=== PATIENT | male | born 1970 | race Two or more races ===

== ENCOUNTER 2020-06-16 08:47 | Outpatient (REF) | payer OTHER, SELFPAY ==
[2020-06-16 09:55] LABS: Microalbum/Creatinine Ratio Ur 13.4 ug/mg cr
[2020-06-16 10:01] LABS: Alanine Aminotransferase 15 U/L (0-40); Albumin Level 4.7 g/dL (3.5-5.0); Alkaline Phosphatase 64 U/L (39-117); Anion Gap 13 (12-20); Aspartate Amino Transferase 18 U/L (5-37); Bilirubin Total 0.6 mg/dL (0.0-1.0); Blood Urea Nitrogen 20 mg/dL (9-16); Calcium 9.6 mg/dL (8.4-10.2); Carbon Dioxide 31 mmol/L (22-29); Chloride 101 mmol/L (96-108); Cholesterol 151 mg/dL; Estimated Glomerular Filt Rate > 60; Glucose Fasting 115 mg/dL (60-99); HDL Cholesterol 50 mg/dL; LDL Cholesterol Calculated 85 mg/dl; Potassium 3.9 mmol/L (3.3-5.1); Sodium 141 mmol/L (135-145); Total Protein 7.8 g/dL (6.5-8.0); Triglycerides 82 mg/dL
[2020-06-16 10:14] LABS: Estimated Average Glucose 117 mg/dL; Hemoglobin A1c % 5.7 %
[2020-06-16 10:24] LABS: Prostate Specific Antigen 0.37 ng/mL (<0.05-4.0)
== END 2020-06-16 08:48 | disposition home or self-care (01) ==
LOC: HO.LAB 08:47
PROVIDERS: PCP Internal Medicine; Visit Provider Internal Medicine
DX: E11.40 Type 2 diabetes mellitus with diabetic neuropathy, unspecified (principal); E78.5 Hyperlipidemia, unspecified; N40.0 Benign prostatic hyperplasia without lower urinary tract symptoms; Z12.5 Encounter for screening for malignant neoplasm of prostate
CPT/HCPCS: 36415; 80053; 80061; 82043; 83036; 84153

== ENCOUNTER → 2020-08-12 08:45 | Outpatient (BNVA) | payer OTHER, SELFPAY | PROVIDERS: Visit Provider Physician Assistant | DX: K21.9 Gastro-esophageal reflux disease without esophagitis (principal); Z12.11 Encounter for screening for malignant neoplasm of colon; K64.9 Unspecified hemorrhoids | CPT/HCPCS: Q3014 ==

== ENCOUNTER 2020-08-21 07:03 | Day surgery (SDC) | payer OTHER, SELFPAY ==
--- NOTE | 2020-08-20 09:31 | HO.ANESPROP2 ---
Documented by User: Kalyani Randolph 08/20/20 09:33 HPI - Anesthesia Eval Consult details Narrative: 49yo M for Colonoscopy PMFSH Active Problems Active Problems: All Active Problems (Updated 08/12/20 @ 09:22 by Cha Gibbons PA-C) Hemorrhoids (Acute) Encounter for screening colonoscopy (Acute) BPH (benign prostatic hyperplasia) (Acute) Depression with anxiety (Acute) Chronic leg pain (Acute) GERD (gastroesophageal reflux disease) (Acute) Dyslipidemia (Acute) Essential hypertension (Acute) Diabetes mellitus (Acute) Diarrhea (Acute) Past Medical History Medical History BPH (benign prostatic hyperplasia) Chronic leg pain Depression with anxiety Diabetes mellitus Dyslipidemia Essential hypertension GERD (gastroesophageal reflux disease) Hemorrhoids Family History Family History Father CVD (cardiovascular disease) Hypertension Mother CVD (cardiovascular disease) Hypertension Diabetes Sister Breast cancer Brother Acute appendicitis Diabetes Hypertension Surgical History Surgical History History of inguinal hernia repair History of lumbar fusion History of removal of cyst Social History Social History Household Members: Friend(s) Alcohol intake: never Smoking Status: Never smoker Use of substances other than those prescribed or required for medical reasons: No Advance Directives: No Advance Directives Information Provided: Yes Current occupational status: disabled Meds Allergies Allergy/AdvReac Type Severity Reaction Status Date / Time acetaminophen [Vicodin] Allergy Intermediate rash Verified 08/21/20 07:29 dicyclomine [Bentyl] Allergy Intermediate pruritus Verified 08/21/20 07:29 finasteride Allergy Intermediate rash Verified 08/21/20 07:29 hydrocodone [Vicodin] Allergy Intermediate rash Verified 08/21/20 07:29 lisinopril Allergy Intermediate myalgias Verified 08/21/20 07:29 morphine Allergy Intermediate unconscious Verified 08/21/20 07:29 losartan [From COZAAR] Allergy Mild RASH Verified 08/12/20 08:46 Home Medications Medication Instructions Recorded Confirmed Last Taken Type azelastine 137 mcg (0.1 %) nasal 1 spray INTRANASAL BID 03/11/20 08/12/20 Unknown History spray aerosol blood sugar diagnostic #10 ea 03/11/20 08/12/20 Unknown History bupropion HCl 300 mg 24 hr tablet, 300 mg PO DAILY 03/11/20 08/12/20 Unknown History extended release cetirizine 10 mg tablet 10 mg PO QAM 03/11/20 08/12/20 Unknown History chlorhexidine gluconate 0.12 % PO 03/11/20 08/12/20 Unknown History mouthwash clonazepam 0.5 mg tablet mg PO 03/11/20 08/12/20 Unknown History escitalopram oxalate 5 mg tablet 5 mg PO DAILY 03/11/20 08/12/20 Unknown History fluticasone propionate 50 INTRANASAL 03/11/20 08/12/20 Unknown History mcg/actuation nasal spray,suspension ibuprofen 600 mg tablet 600 mg PO Q6H PRN 03/11/20 08/12/20 Unknown History lancets #100 ea 03/11/20 08/12/20 Unknown History melatonin 5 mg tablet 500f10 mg PO BEDTIME 03/11/20 08/12/20 Unknown History metformin 1,000 mg tablet 1,000 mg PO BID 03/11/20 08/12/20 Unknown History loperamide 1 cap PO Q6H PRN 08/21/20 08/21/20 08/21/20 06:45 History Exam Exam Date and Time: August 20, 2020 0931 Pertinent Lab Results Pertinent Lab Results: Laboratory Tests 06/16/20 08:58 Sodium 141 Potassium 3.9 Chloride 101 Carbon Dioxide 31 H BUN 20 H Creatinine 0.86 Assessment and Plan Assessment Anesthesia Assessment: Chart Reviewed Documented by User: Jessika Madera 08/21/20 08:49 PMFSH Past Medical History Medical History BPH (benign prostatic hyperplasia) Chronic leg pain Depression with anxiety Diabetes mellitus Dyslipidemia Essential hypertension GERD (gastroesophageal reflux disease) Hemorrhoids Family History Family History Father CVD (cardiovascular disease) Hypertension Mother CVD (cardiovascular disease) Hypertension Diabetes Sister Breast cancer Brother Acute appendicitis Diabetes Hypertension Surgical History Surgical History History of inguinal hernia repair History of lumbar fusion History of removal of cyst Social History Social History Household Members: Friend(s) Alcohol intake: never Smoking Status: Never smoker Use of substances other than those prescribed or required for medical reasons: No Advance Directives: No Advance Directives Information Provided: Yes Current occupational status: disabled Meds Allergies Allergy/AdvReac Type Severity Reaction Status Date / Time acetaminophen [Vicodin] Allergy Intermediate rash Verified 08/21/20 07:29 dicyclomine [Bentyl] Allergy Intermediate pruritus Verified 08/21/20 07:29 finasteride Allergy Intermediate rash Verified 08/21/20 07:29 hydrocodone [Vicodin] Allergy Intermediate rash Verified 08/21/20 07:29 lisinopril Allergy Intermediate myalgias Verified 08/21/20 07:29 morphine Allergy Intermediate unconscious Verified 08/21/20 07:29 losartan [From COZAAR] Allergy Mild RASH Verified 08/12/20 08:46 Home Medications Medication Instructions Recorded Confirmed Last Taken Type azelastine 137 mcg (0.1 %) nasal 1 spray INTRANASAL BID 03/11/20 08/12/20 Unknown History spray aerosol blood sugar diagnostic #10 ea 03/11/20 08/12/20 Unknown History bupropion HCl 300 mg 24 hr tablet, 300 mg PO DAILY 03/11/20 08/12/20 Unknown History extended release cetirizine 10 mg tablet 10 mg PO QAM 03/11/20 08/12/20 Unknown History chlorhexidine gluconate 0.12 % PO 03/11/20 08/12/20 Unknown History mouthwash clonazepam 0.5 mg tablet mg PO 03/11/20 08/12/20 Unknown History escitalopram oxalate 5 mg tablet 5 mg PO DAILY 03/11/20 08/12/20 Unknown History fluticasone propionate 50 INTRANASAL 03/11/20 08/12/20 Unknown History mcg/actuation nasal spray,suspension ibuprofen 600 mg tablet 600 mg PO Q6H PRN 03/11/20 08/12/20 Unknown History lancets #100 ea 03/11/20 08/12/20 Unknown History melatonin 5 mg tablet 500f10 mg PO BEDTIME 03/11/20 08/12/20 Unknown History metformin 1,000 mg tablet 1,000 mg PO BID 03/11/20 08/12/20 Unknown History loperamide 1 cap PO Q6H PRN 08/21/20 08/21/20 08/21/20 06:45 History Exam Airway Mallampati Class: II TM Dist: >3cm Heart: RRR Lungs: CTA Assessment and Plan Assessment Anesthesia Assessment: Anesthesia Plan Discussed and Chart Reviewed Final Anesthetic Review NPO: Yes ASA Class: II Final Preanesthetic Review: Meds/Allgs Chart Reviewed, Consent Obtained/Reviewed and Anes Risks/Benef Reviewed Patient Risk: Low Procedure Risk: Low Anesthetic Plan Anesthetic Plan: MAC: Disposition: Standard PACU
[2020-08-21 07:22] LABS: Glucose, Whole Blood 112 mg/dL (60-115)
[2020-08-21 07:29] VITALS: BP 123/80; PULSE 66; RESP 18; TEMP 36.7; O2SAT 97; BMI 28.2
[2020-08-21] MEDS: Lactated Ringers 1,000 ML 100 ML IVCONT (07:47)
--- NOTE | 2020-08-21 08:11 | P.OP_ITS ---
Operative Note Operative Note Date of Service: 08/21/20 Narrative: Pre-op diagnosis: COLON CANCER SCREENING Post-op diagnosis: other (COLON POLYPS, DIVERTICULOSIS, HEMORRHOIDS) Procedure: COLONOSCOPY TILL CECUM WITH BIOPSIES AND SNARE POLYPECTOMY Consent: Indications for the procedure and potential complications of bleeding, perforation, reaction to medications and missed diagnosis were discussed with the patient and informed consent was obtained. Instrument: Olympus PCF H 190 L variable stiffness pediatric colonoscope Monitoring: Vital signs and clinical assessment, intermittent blood pressure monitoring, continuous EKG monitoring, Pulse oximetry and Carbon Dioxide monitoring were done throughout the procedure. Colon withdrawl time was 35 minutes. Procedure: The patient was placed in the left lateral decubitis position and pre-procedure medications were administered. After a digital rectal examination of the ano-rectum, the video colonoscope was inserted into the rectum and advanced through the colon to the cecum. The colonoscope was slowly withdrawn in a retrograde panoramic fashion and the colon mucosa was carefully examined including a retroflexed view of the rectum. Findings and interventions are described below. Procedure Difficulty: Colon was long and tortuous and there was some loop formation. LLQ pressure applied to intubate the ascending colon Findings: Terminal Ileum: Not evaluated Cecum: Normal Ascending Colon: Normal Transverse Colon: A 10 to 12 mm sessile polyp removed with a cold snare. A 4-5 mm sessile polyp removed with a cold biopsy Descending Colon: Normal Sigmoid Colon: Normal Rectum: A 4-5 mm diminutive appearing polyp removed with a cold biopsy. Ano-rectum: Moderate internal hemorrhoids Colon preparation: Good after copious irrigation Impression and Post Procedure Diagnosis: Colonoscopy Findings: Three small to medium sized polyps removed Moderate hemorrhoids on retroflexed exam. Plan: Await pathology results Patient has an appointment on 09/03/20 in the [facility] with LUCI Delgado. Repeat Colonoscopy interval based on path results - in 3-5 years if polyps are adenomatous and 10 years if polyps are hyperplastic. Above findings were reviewed with the patient and colon polyps and hemorrhoids handouts were given in the discharge area Surgeon: Foster Corea MD Anesthesia: MAC (Dr Ty & Dr Juarez) Digital Business Analyst: Jesus Ojeda Estimated blood loss (mL): 0 Pathology: other (A-TRANSVERSE COLON POLYPS B- RECTAL POLYP) Condition: stable Disposition: PACU
--- NOTE | 2020-08-21 08:11 | MHC.SHP ---
Pre-Procedural Eval Section A The patient is an INPATIENT: No Changes since office visit: Yes Patient answered all questions; No Cold of Flu in the past 2 weeks, No New Medical Problems and No Changes in Medication The History & Physical has been completed within 30 days and I have reviewed it.: Yes Section B Chief Complaint: Screening Allergies: Allergies Allergy/AdvReac Type Severity Reaction Status Date / Time acetaminophen [Vicodin] Allergy Intermediate rash Verified 08/21/20 07:29 dicyclomine [Bentyl] Allergy Intermediate pruritus Verified 08/21/20 07:29 finasteride Allergy Intermediate rash Verified 08/21/20 07:29 hydrocodone [Vicodin] Allergy Intermediate rash Verified 08/21/20 07:29 lisinopril Allergy Intermediate myalgias Verified 08/21/20 07:29 morphine Allergy Intermediate unconscious Verified 08/21/20 07:29 losartan [From COZAAR] Allergy Mild RASH Verified 08/12/20 08:46 Exam Surgical H&P Exam: Normal: Heart, Normal: Lungs, Normal: Extremities and Normal: Abdomen Plan Diagnosis/Plan: Unchanged I have reviewed the history and physical and performed a pertinent physical examination on my patient. No changes have occurred unless specified.
[2020-08-21 09:15] VITALS: BP 108/71; PULSE 65; RESP 18; TEMP 36.3; O2SAT 99
[2020-08-21 09:30] VITALS: BP 111/73; PULSE 66; RESP 18; O2SAT 98
== END 2020-08-21 10:32 | disposition home or self-care (01) ==
PROVIDERS: PCP Internal Medicine; Visit Provider Internal Medicine Gastroenterology
PROC: 0DJD8ZZ Inspection of Lower Intestinal Tract, Via Natural or Artificial Opening Endoscopic (ICD-10-PCS; CPT 45378; principal; 2020-08-21 08:20)
DX: Z12.11 Encounter for screening for malignant neoplasm of colon (principal); D12.3 Benign neoplasm of transverse colon; K62.1 Rectal polyp; K57.30 Diverticulosis of large intestine without perforation or abscess without bleeding; K64.8 Other hemorrhoids; K21.9 Gastro-esophageal reflux disease without esophagitis; N40.0 Benign prostatic hyperplasia without lower urinary tract symptoms; I10 Essential (primary) hypertension; E11.9 Type 2 diabetes mellitus without complications; Z79.84 Long term (current) use of oral hypoglycemic drugs; Z79.51 Long term (current) use of inhaled steroids; Z79.899 Other long term (current) drug therapy
CPT/HCPCS: 45385; 45380; 82947; 88305

== ENCOUNTER → 2020-09-03 08:41 | Outpatient (BNVA) | payer OTHER, SELFPAY | PROVIDERS: PCP Internal Medicine; Visit Provider Physician Assistant | DX: K64.9 Unspecified hemorrhoids (principal); D13.6 Benign neoplasm of pancreas; K57.30 Diverticulosis of large intestine without perforation or abscess without bleeding | CPT/HCPCS: Q3014 ==

== ENCOUNTER 2020-09-29 10:17 | Emergency (ER) | payer OTHER, SELFPAY ==
--- NOTE | ~2020-09-29 | XR_ITS ---
EXAMINATION: XR CHEST CLINICAL INFORMATION: Chest pain COMPARISON: Previous chest x-ray most recent September 2018 TECHNIQUE: 2 views of the chest were obtained. FINDINGS: The cardiac and mediastinal contours are stable. The lungs are clear. There is no pleural effusion or pneumothorax. There are surgical clips in the left axilla. There is curvature of the midthoracic spine to the right and mild degenerative changes. XR/XR chest 2V IMPRESSION: No evidence for acute disease in the chest.
[2020-09-29 10:31] VITALS: BP 139/89; PULSE 97; RESP 18; TEMP 36.7; O2SAT 98; BMI 27.4
--- NOTE | 2020-09-29 10:48 | ECG_ITS ---
Test Reason : CP Blood Pressure : / mmHG Vent. Rate : 082 BPM Atrial Rate : 082 BPM P-R Int : 150 ms QRS Dur : 096 ms QT Int : 352 ms P-R-T Axes : 073 078 025 degrees QTc Int : 411 ms Normal sinus rhythm Incomplete right bundle branch block Borderline ECG When compared with ECG of 17-OCT-2018 15:10, No significant change was found Referred By: Generic ED Physician Electronically Signed By:MAYRA HER MD
[2020-09-29 11:41] LABS: MANUAL DIFF FLAG NO
[2020-09-29 11:45] LABS: Basophils Absolute Auto 0.1 X10*3/uL (0.0-0.2); Eosinophils Absolute Auto 0.1 X10*3/uL (0.0-0.4); Eosinophils Percent Auto 1.8 % (0-4); Hematocrit 45.4 % (42-52); Hemoglobin 15.8 g/dl (14.0-18.0); Imm Gran Abs Auto 0.05 X10*3/uL (0.00-0.03); Imm Gran Pct Auto 0.7 % (0.0-0.4); Lymphocytes Absolute Auto 1.8 X10*3/uL (1.2-4.9); Lymphocytes Percent Auto 24.4 % (20-40); Mean Corpuscular HGB Conc 34.8 g/dl (31.0-36.0); Mean Corpuscular Hemoglobin 29.5 pg (27.0-33.0); Mean Corpuscular Volume 84.7 fL (80-98); Mean Platelet Volume 10.4 fL (9.4-12.4); Monocytes Absolute Auto 0.7 X10*3/uL (0.1-1.2); Monocytes Percent Auto 9.9 % (2-11); Neutrophils Absolute Auto 4.6 X10*3/uL (2.0-8.3); Neutrophils Percent Auto 62.2 % (45-73); Platelet Count 194 X10*3/uL (160-400); Red Blood Count 5.36 X10*6/uL (4.60-5.80); Red Cell Distribution Width 13.4 % (11.0-16.0); White Blood Count 7.3 X10*3/uL (4.8-10.8)
[2020-09-29 12:05] LABS: Anion Gap 14 (12-20); Blood Urea Nitrogen 22 mg/dL (9-16); Calcium 9.9 mg/dL (8.4-10.2); Carbon Dioxide 25 mmol/L (22-29); Chloride 104 mmol/L (96-108); Creatinine Clr Calc Pharmacy 102.9; Estimated Glomerular Filt Rate > 60; Glucose Random 99 mg/dL (60-115); Potassium 3.6 mmol/L (3.3-5.1); Sodium 139 mmol/L (135-145)
[2020-09-29 12:56] LABS: Troponin-I High Sensitivity < 3.5 ng/L (<3.5-35.0)
--- NOTE | 2020-09-29 13:15 | ED.CHESTPAIN ---
HPI - Chest Pain General Chief Complaint: Chest Pain Stated Complaint: Chest pain, dizziness Time Seen by Provider: 09/29/20 13:13 Source: patient Mode of arrival: ambulatory Limitations: no limitations History of Present Illness HPI narrative: 49-year-old male with a past medical history of BPH, depression, anxiety, GERD, high cholesterol, hypertension and diabetes here with complaints of intermittent chest pain since yesterday. Patient tells me that he has episodes of palpitations which are associated with ?chest squeezing on the left side which lasts several seconds and then self-resolved. These occur both with movement and at rest. Unchanged with position changes in the bed. He has had more episodes than he can count since yesterday morning. He was seen at Urgent Care and while he was there he had 5 episodes so he was sent into the ER for further evaluation. He denies any associated shortness of breath, cough, fevers, chills, leg swelling or pain. He tells me [place] and was standing he felt very lightheaded like he might pass out and this was associated with some chest discomfort and palpitations but self resolved after approximately 10 seconds. There was no fall, head injury or loss of consciousness. No recent travel. No sick contacts. No family history of sudden cardiac disease. No history of blood clots or family history. Related Data Home Medications Medication Instructions Recorded Confirmed bupropion HCl 300 mg 24 hr tablet, 300 mg PO DAILY 03/11/20 09/09/20 extended release cetirizine 10 mg tablet 10 mg PO QAM 03/11/20 09/09/20 clonazepam 0.5 mg tablet mg PO 03/11/20 09/09/20 escitalopram oxalate 5 mg tablet 5 mg PO DAILY 03/11/20 09/09/20 ibuprofen 600 mg tablet 600 mg PO Q6H PRN 03/11/20 09/09/20 lancets #100 ea 03/11/20 09/09/20 melatonin 5 mg tablet 500f10 mg PO BEDTIME 03/11/20 09/09/20 metformin 1,000 mg tablet 1,000 mg PO BID 03/11/20 09/09/20 loperamide 1 cap PO Q6H PRN 08/21/20 09/09/20 azelastine 137 mcg (0.1 %) nasal 1 spray INTRANASAL BID 08/28/20 09/09/20 spray aerosol Previous Rx's Medication Instructions Recorded losartan 25 mg tablet 25 mg PO DAILY #90 tab 03/08/20 linaclotide 145 mcg capsule 145 mcg PO DAILY #90 cap 03/12/20 linagliptin 5 mg tablet 5 mg PO DAILY #90 tab 03/23/20 aluminum-mag hydroxide-simethicone 10 ml PO QID PRN 30 Days #1200 ml 06/11/20 200 mg-200 mg-20 mg/5 mL oral susp hydrochlorothiazide 25 mg tablet 25 mg PO DAILY 90 Days #90 tab 06/11/20 pravastatin 10 mg tablet 10 mg PO DAILY 90 Days #90 tab 06/11/20 terazosin 10 mg capsule 10 mg PO DAILY 90 Days #90 cap 06/11/20 docusate sodium 100 mg capsule 200 mg PO BEDTIME #60 cap 08/12/20 hydrocortisone 2.5 % topical cream 1 appl TN BID PRN #30 g 08/12/20 with perineal applicator blood sugar diagnostic #10 ea 08/26/20 amoxicillin 875 mg-potassium 1 tab PO BID #20 tab 08/28/20 clavulanate 125 mg tablet fluticasone propionate 50 1 spray INTRANASAL DAILY #16 g 09/04/20 mcg/actuation nasal spray,suspension Allergies Allergy/AdvReac Type Severity Reaction Status Date / Time acetaminophen [Vicodin] Allergy Intermediate rash Verified 09/29/20 10:34 dicyclomine [Bentyl] Allergy Intermediate pruritus Verified 09/29/20 10:34 finasteride Allergy Intermediate rash Verified 09/29/20 10:34 hydrocodone [Vicodin] Allergy Intermediate rash Verified 09/29/20 10:34 lisinopril Allergy Intermediate myalgias Verified 09/29/20 10:34 morphine Allergy Intermediate unconscious Verified 09/29/20 10:34 losartan [From [facility]] Allergy Mild RASH Verified 09/29/20 10:34 Review of Systems Review of Systems: Yes all other systems are reviewed and are negative Constitutional: Constitutional: Reports no additional constitutional complaints, Denies body ache(s), Denies chills, Denies fever(s), Denies headache(s) and Denies weakness Eyes: Eyes: Reports no additional eye complaints and Denies change in vision ENT: Reports system reviewed and no additional complaints, except as documented, Denies dizziness, Denies headache(s), Denies nasal congestion, Denies nasal discharge and Denies neck pain Cardiovascular: Cardiovascular: Reports chest pain, Reports lightheadedness, Reports palpitations and Denies dyspnea Respiratory: Respiratory: Reports no additional respiratory complaints, Denies cough and Denies dyspnea Gastrointestinal: Gastrointestinal: Reports no additional gastrointestinal complaints, Denies abdominal pain, Denies diarrhea, Denies nausea and Denies vomiting Genitourinary: Genitourinary: Denies urinary incontinence Musculoskeletal: Musculoskeletal: Reports no additional musculoskeletal complaints, Denies back pain, Denies arthralgias, Denies joint swelling, Denies neck pain, Denies numbness and Denies tingling Integumentary/Breasts: Skin/Breast: Reports system reviewed and no additional complaints, except as docu and Denies rash Neurologic: Reports system reviewed and no additional complaints, except as documented, Denies Abnormal speech present, Denies dizziness, Denies headache(s), Denies numbness, Denies tingling and Denies weakness Endocrine: Endocrine: Reports palpitations PMFSH Past Medical History Attestation statement: The following information was validated with the patient. Source: old records reviewed and nursing notes reviewed Medical History BPH (benign prostatic hyperplasia) Chronic leg pain Depression with anxiety Diabetes mellitus Dyslipidemia Essential hypertension GERD (gastroesophageal reflux disease) Hemorrhoids Surgical History History of inguinal hernia repair History of lumbar fusion History of removal of cyst Family History Family History Father CVD (cardiovascular disease) Hypertension Mother CVD (cardiovascular disease) Hypertension Diabetes Sister Breast cancer Brother Acute appendicitis Diabetes Hypertension Social History Social History Household Members: Friend(s) Alcohol intake: never Current occupational status: disabled Physical Exam Vital Signs: Vital Signs: Last Vital Signs Temp 98.0 F 09/29/20 10:31 Pulse 73 09/29/20 14:48 Resp 16 09/29/20 14:01 BP 129/84 09/29/20 14:48 Pulse Ox 97 09/29/20 14:01 Body Mass Index 27.4 Const: General: cooperative, healthy appearing, comfortable and no acute distress Orientation/consciousness: patient oriented x3 Limitations: no limitations HENMT: Head: Yes normal to inspection Ears: hearing grossly normal bilaterally General nose exam: Normal external nose present Face and sinus: Yes normal facial exam Mouth: Normal oral and palatal mucosa present Throat: Yes posterior oropharynx normal Eyes: General: appearance normal, both eyes and all related structures Pupils: Equal, round and reactive pupils present Neck: Neck: Yes normal visual inspection, Yes full ROM and Yes no lymphadenopathy Chest: Chest palpation & inspection: normal inspection of the chest Resp: Effort & Inspection: normal respiratory effort Auscultation: clear to auscultation bilaterally Cardio: Rate: regular rate Rhythm: regular rhythm Peripheral pulses: Peripheral pulses 2+ throughout GI: Inspection: Yes normal to inspection Palpation (GI): Soft to palpation and nontender Auscultation: normal bowel sounds Back/Spine/Pelvis: Thoracic/Lumbar Spine: thoracic and lumbar spine normal to inspection Skin: General skin exam: no rashes or lesions noted Neuro: General: patient oriented x3 and moves all extremities Cranial nerves: Yes Equal, round and reactive pupils present Cognition (Neuro): normal cognition Speech: No Abnormal speech present Gait exam (Neuro): Normal gait present Motor exam (neuro): 5/5 motor strength present throughout Extrem: General: Yes normal to inspection, Yes no pedal edema and Yes no calf tenderness Course Course Course Narrative: 49 yo male with a past medical history of high cholesterol, hypertension, diabetes, GERD, depression, anxiety here with complaints of intermittent chest pain with associated palpitations for the last 2 days. Also had a near syncopal episode yesterday while standing in the grocery store. His chest pain and palpitations seem to occur both at rest and with exertion. His exam is benign. Hemodynamically stable. Normal neuro exam. Will check labs, EKG, chest x-ray. 1500-labs all unremarkable. EKG shows no ischemic changes. Chest x-ray shows no acute finding. Negative orthostatics. Monitored here on the threat monitoring analyst for 3-4 hours with no tachycardia or arrhythmia noted. Very atypical chest pain for ACS. ?anxiety related. Will have him follow up with Cardiology due to several risk factors. Reviewed worrisome signs and symptoms and when to return to the emergency department. Comfortable discharge home. MDM - Chest Pain MDM Narrative Medical decision making narrative: ACS, PE, anxiety, hyperthyroidism, orthostatic hypotension, electrolyte abnormality, anemia Less likely ACS with symptoms greater than 24 hours with a negative troponin and EKG which shows no ischemic changes Less likely PE with no hypoxia, tachypnea, tachycardia and a negative D-dimer Medical Records Data Attestation: I reviewed the patient's medical records. Lab Data Attestation: I reviewed the patient's lab results. Result diagrams: 09/29/20 11:35 09/29/20 11:35 Labs: Lab Results 09/29/20 09/29/20 09/29/20 Range/Units 11:35 11:35 11:35 WBC 7.3 (4.8-10.8) X10*3/uL RBC 5.36 (4.60-5.80) X10*6/uL Hgb 15.8 (14.0-18.0) g/dl Hct 45.4 (42-52) % MCV 84.7 (80-98) fL MCH 29.5 (27.0-33.0) pg MCHC 34.8 (31.0-36.0) g/dl RDW 13.4 (11.0-16.0) % Plt Count 194 (160-400) X10*3/uL MPV 10.4 (9.4-12.4) fL Immature Gran % (Auto) 0.7 H (0.0-0.4) % Neut % (Auto) 62.2 (45-73) % Lymph % (Auto) 24.4 (20-40) % [place] % (Auto) 9.9 (2-11) % Eos % (Auto) 1.8 (0-4) % Baso % (Auto) 1.0 (0-2) % Lymph # (Auto) 1.8 (1.2-4.9) X10*3/uL [place] # (Auto) 0.7 (0.1-1.2) X10*3/uL Eos # (Auto) 0.1 (0.0-0.4) X10*3/uL Baso # (Auto) 0.1 (0.0-0.2) X10*3/uL Abs Immat Gran (auto) 0.05 H (0.00-0.03) X10*3/uL Absolute Neuts (auto) 4.6 (2.0-8.3) X10*3/uL Absolute Nucleated RBC 0.000 (0.0-0.012) X10*3/uL Nucleated RBC % (auto) 0.0 (0.0-0.2) /100WBC PT (10.8-13.0) SEC INR (0.9-1.1) D-Dimer NG/ML Sodium 139 (135-145) mmol/L Potassium 3.6 (3.3-5.1) mmol/L Chloride 104 (96-108) mmol/L Carbon Dioxide 25 (22-29) mmol/L Anion Gap 14 (12-20) BUN 22 H (9-16) mg/dL Creatinine 0.83 (0.5-1.4) mg/dL Estim Creat Clear Calc 102.9 Estimated GFR > 60 Random Glucose 99 (60-115) mg/dL Calcium 9.9 (8.4-10.2) mg/dL Magnesium 1.8 (1.6-2.6) mg/dL Total Bilirubin 0.7 (0.0-1.0) mg/dL Direct Bilirubin 0.2 (0.0-0.5) mg/dL AST 23 (5-37) U/L ALT 28 (0-40) U/L Alkaline Phosphatase 69 (39-117) U/L Troponin I High Sens < 3.5 (<3.5-35.0) ng/L Total Protein 7.8 (6.5-8.0) g/dL Albumin 4.6 (3.5-5.0) g/dL TSH 1.07 (0.32-4.0) uIU/mL 09/29/20 Range/Units 14:13 WBC (4.8-10.8) X10*3/uL RBC (4.60-5.80) X10*6/uL Hgb (14.0-18.0) g/dl Hct (42-52) % MCV (80-98) fL MCH (27.0-33.0) pg MCHC (31.0-36.0) g/dl RDW (11.0-16.0) % Plt Count (160-400) X10*3/uL MPV (9.4-12.4) fL Immature Gran % (Auto) (0.0-0.4) % Neut % (Auto) (45-73) % Lymph % (Auto) (20-40) % [place] % (Auto) (2-11) % Eos % (Auto) (0-4) % Baso % (Auto) (0-2) % Lymph # (Auto) (1.2-4.9) X10*3/uL [place] # (Auto) (0.1-1.2) X10*3/uL Eos # (Auto) (0.0-0.4) X10*3/uL Baso # (Auto) (0.0-0.2) X10*3/uL Abs Immat Gran (auto) (0.00-0.03) X10*3/uL Absolute Neuts (auto) (2.0-8.3) X10*3/uL Absolute Nucleated RBC (0.0-0.012) X10*3/uL Nucleated RBC % (auto) (0.0-0.2) /100WBC PT 12.1 (10.8-13.0) SEC INR 1.0 (0.9-1.1) D-Dimer < 200 NG/ML Sodium (135-145) mmol/L Potassium (3.3-5.1) mmol/L Chloride (96-108) mmol/L Carbon Dioxide (22-29) mmol/L Anion Gap (12-20) BUN (9-16) mg/dL Creatinine (0.5-1.4) mg/dL Estim Creat Clear Calc Estimated GFR Random Glucose (60-115) mg/dL Calcium (8.4-10.2) mg/dL Magnesium (1.6-2.6) mg/dL Total Bilirubin (0.0-1.0) mg/dL Direct Bilirubin (0.0-0.5) mg/dL AST (5-37) U/L ALT (0-40) U/L Alkaline Phosphatase (39-117) U/L Troponin I High Sens (<3.5-35.0) ng/L Total Protein (6.5-8.0) g/dL Albumin (3.5-5.0) g/dL TSH (0.32-4.0) uIU/mL Imaging Data Chest x-ray: Attestation: I personally reviewed and interpreted this imaging study as follows: Radiologist's impression: EXAMINATION: XR CHEST CLINICAL INFORMATION: Chest pain COMPARISON: Previous chest x-ray most recent September 2018 TECHNIQUE: 2 views of the chest were obtained. FINDINGS: The cardiac and mediastinal contours are stable. The lungs are clear. There is no pleural effusion or pneumothorax. There are surgical clips in the left axilla. There is curvature of the midthoracic spine to the right and mild degenerative changes. XR/XR chest 2V IMPRESSION: No evidence for acute disease in the chest. ECG Data ECG #1: Attestation: I personally reviewed and interpreted this ECG as follows: ECG interpretation date: 09/29/20 ECG interpretation time: 10:53 Interpretation: Normal sinus rhythm with rate of 82, normal TN, normal QRS, normal QT, incomplete right bundle branch block unchanged from previous Discharge Plan Discharge Clinical Impression: Atypical chest pain Patient Disposition: Home, Self-Care Instructions: Chest Pain (ED) Additional Instructions: Your labs all looked unremarkable including your cardiac enzymes. Your EKG and chest x-ray showed no acute finding Some of your symptoms may be related to anxiety Stay well-hydrated, change positions slowly Follow-up with cardiology Prescriptions: No Action losartan 25 mg tablet 25 mg PO DAILY Qty: 90 RF: 2 linaclotide [Linzess] 145 mcg capsule 145 mcg PO DAILY Qty: 90 RF: 0 linagliptin [Tradjenta] 5 mg tablet 5 mg PO DAILY Qty: 90 RF: 3 (DME) blood sugar diagnostic Strip See Rx Instructions ea Not Applicable BID Qty: 10 RF: 0 fluticasone propionate 50 mcg/actuation spray,suspension 1 spray intranasal DAILY Qty: 16 RF: 3 loperamide 2 mg capsule 1 cap PO Q6H PRN (Reason: diarrhea) RF: 0 clonazepam 0.5 mg tablet PO RF: 0 melatonin 5 mg tablet 500f10 mg PO BEDTIME RF: 0 escitalopram oxalate 5 mg tablet 5 mg PO DAILY RF: 0 bupropion HCl 300 mg tablet extended release 24 hr 300 mg PO DAILY RF: 0 (DME) lancets Misc See Rx Instructions ea Not Applicable BID Qty: 100 RF: 0 cetirizine 10 mg tablet 10 mg PO QAM RF: 0 metformin 1,000 mg tablet 1,000 mg PO BID RF: 0 ibuprofen 600 mg tablet 600 mg PO Q6H PRN (Reason: pain) RF: 0 azelastine 137 mcg (0.1 %) aerosol,spray 1 spray intranasal BID RF: 0 alum-mag hydroxide-simeth 200-200-20 mg/5 mL suspension 10 ml PO QID PRN (Reason: indigestion) 30 Days Qty: 1200 RF: 6 terazosin 10 mg capsule 10 mg PO DAILY 90 Days Qty: 90 RF: 3 hydrochlorothiazide 25 mg tablet 25 mg PO DAILY 90 Days Qty: 90 RF: 3 pravastatin 10 mg tablet 10 mg PO DAILY 90 Days Qty: 90 RF: 3 amoxicillin-pot clavulanate [Augmentin] 875-125 mg tablet 1 tab PO BID Qty: 20 RF: 0 hydrocortisone [Proctozone-HC] 2.5 % cream with perineal applicator 1 appl TN BID PRN (Reason: hemorrhoids) Qty: 30 RF: 3 docusate sodium [Colace] 100 mg capsule 200 mg PO BEDTIME Qty: 60 RF: 5 Referrals: Giovanny Prado MD [Physician] - 2 days Interventions: ED Discharge Assessment Last Done: 09/29/20 14:58 Discharge Date/Time: 09/29/20 14:59
[2020-09-29 13:35] LABS: Alanine Aminotransferase 28 U/L (0-40); Albumin Level 4.6 g/dL (3.5-5.0); Alkaline Phosphatase 69 U/L (39-117); Aspartate Amino Transferase 23 U/L (5-37); Bilirubin Direct 0.2 mg/dL (0.0-0.5); Bilirubin Total 0.7 mg/dL (0.0-1.0); Magnesium 1.8 mg/dL (1.6-2.6); Total Protein 7.8 g/dL (6.5-8.0)
[2020-09-29 14:01] VITALS: PULSE 62; RESP 16; O2SAT 97
[2020-09-29 14:12] LABS: Thyroid Stimulating Hormone 1.07 uIU/mL (0.32-4.0)
[2020-09-29 14:27] LABS: Prothrombin Time 12.1 SEC (10.8-13.0)
[2020-09-29 14:31] LABS: D Dimer < 200 NG/ML
[2020-09-29 14:47] VITALS: BP 115/74; BP 118/79; PULSE 67; PULSE 75
[2020-09-29 14:48] VITALS: BP 129/84; PULSE 73
== END 2020-09-29 14:59 | disposition home or self-care (01) ==
PROVIDERS: Nurse Practitioner Family; Emergency Provider Emergency Medicine; PCP Internal Medicine
DX: R07.89 Other chest pain (principal); I10 Essential (primary) hypertension; E11.9 Type 2 diabetes mellitus without complications; E78.5 Hyperlipidemia, unspecified; Z79.899 Other long term (current) drug therapy; Z79.02 Long term (current) use of antithrombotics/antiplatelets; Z79.84 Long term (current) use of oral hypoglycemic drugs
CPT/HCPCS: 36415; 71046; 80048; 80076; 83735; 84443; 84484; 85025; 85379; 85610; 93005; 99284; 99285

== ENCOUNTER 2020-10-21 09:01 | Outpatient (REF) | payer OTHER, SELFPAY ==
--- NOTE | ~2020-10-21 | FL_ITS ---
EXAMINATION: XR GI SERIES CLINICAL INFORMATION: Diaphragmatic hernia without obstruction. Epigastric pain. COMPARISON: None TECHNIQUE: Routine upper GI air-contrast study was performed in upright and lying position. FINDINGS: Following intravenous administration of thick barium and effervescent granules, there is normal propagation of bolus from the oral cavity through the pharynx, esophagus into stomach without any evidence of obstruction, narrowing or stricture. There is mild prominence of cricoesophageal sphincter indenting the posterior cervical esophageal wall but no obstruction seen. On placing patient supine and prone lying, the course, caliber and peristalsis of the stomach are normal. There is moderate gastroesophageal reflux extending into the upper esophagus. No hiatal hernia is seen. The duodenal bulb and the sweep are normal. Incidental noted is L4 and L5 disc fusion with posterior hardware. There is a lower abdominal wall hernia containing fat. FLUOROSCOPY TIME: 2.6 minutes DOSE AREA PRODUCT: 37.352 uGy-m2 (microgray-meter squared) FL/FL upper GI series IMPRESSION: [id number] gastroesophageal reflux in supine position. No hiatal hernia. The mucosal pattern of the stomach and the duodenal bulb is normal. Prominent cricoesophageal sphincter is noted in the cervical esophagus but no obstruction or narrowing seen. Incidental finding of lower abdominal wall hernia containing fat. There is L4 and L5 disc fusion with posterior hardware.
== END 2020-10-21 09:02 | disposition home or self-care (01) ==
LOC: HO.XRAY 09:01
PROVIDERS: PCP Internal Medicine; Visit Provider Internal Medicine
DX: K44.9 Diaphragmatic hernia without obstruction or gangrene (principal)
CPT/HCPCS: 74240

== ENCOUNTER → 2020-11-24 09:10 | Outpatient (BNVA) | payer OTHER, MEDICARE, SELFPAY | PROVIDERS: Visit Provider Physician Assistant ==

== ENCOUNTER → 2021-01-06 10:53 | Outpatient (BNVA) | payer OTHER, SELFPAY | PROVIDERS: PCP Internal Medicine; Visit Provider Physician Assistant | DX: Z13.89 Encounter for screening for other disorder (principal) | CPT/HCPCS: Q3014 ==

== ENCOUNTER 2021-01-07 12:18 | Outpatient (REF) | payer OTHER, SELFPAY ==
[2021-01-07 14:14] LABS: Appearance Urine CLEAR; Color Urine YELLOW; Glucose Urine UA NEG (NEG); Leukocyte Esterase Urine NEG (NEG); Nitrite Urine NEG (NEG); Urine Blood NEG (NEG); Urine Ketones 5 MG/DL (NEG); Urine Protein TRACE MG/DL (NEG-TRACE)
== END 2021-01-07 12:19 | disposition home or self-care (01) ==
LOC: HO.LAB 12:18
PROVIDERS: PCP Internal Medicine; Visit Provider Internal Medicine
DX: R30.0 Dysuria (principal)
CPT/HCPCS: 81003

== ENCOUNTER 2021-02-05 13:37 | Outpatient (REF) | payer OTHER, SELFPAY | END 2021-02-05 13:38 | disposition home or self-care (01) | LOC: HO.LNP 13:37 | PROVIDERS: Visit Provider Physician Assistant Medical | DX: H10.9 Unspecified conjunctivitis (principal); Z20.822 Contact with and (suspected) exposure to COVID-19 | CPT/HCPCS: U0003; U0005 ==

== ENCOUNTER 2021-02-08 10:22 | Emergency (ER) | payer OTHER, SELFPAY ==
--- NOTE | ~2021-02-08 | XR_ITS ---
EXAMINATION: XR CHEST CLINICAL INFORMATION: COVID positive. COMPARISON: 09/29/2020 chest radiographs. TECHNIQUE: Frontal view of the chest was obtained. FINDINGS: The lungs are clear. There are no pleural effusions. The heart and mediastinal structures are unremarkable. Multiple surgical clips are again seen overlying the left axilla. XR/XR chest 1V IMPRESSION: No acute cardiopulmonary process.
[2021-02-08 10:39] VITALS: BP 128/72; PULSE 76; RESP 18; TEMP 36.9; O2SAT 100; BMI 29.0
--- NOTE | 2021-02-08 10:51 | ECG_ITS ---
Test Reason : cp Blood Pressure : / mmHG Vent. Rate : 087 BPM Atrial Rate : 087 BPM P-R Int : 156 ms QRS Dur : 094 ms QT Int : 376 ms P-R-T Axes : 061 069 005 degrees QTc Int : 452 ms Normal sinus rhythm RSR' or QR pattern in V1 suggests right ventricular conduction delay Intra-ventricular conduction delay Borderline ECG No significant changes seen Referred By: Nabila Davis Electronically Signed By:NORA SHAW MD
--- NOTE | 2021-02-08 10:51 | ED.GENADULT ---
HPI - General Adult General Chief complaint: General Medical Stated complaint: COVID+ Time Seen by Provider: 02/08/21 10:44 Source: patient and improvement specialist Mode of arrival: ambulatory Limitations: language barrier History of Present Illness HPI narrative: 50-year-old male with a past medical history of anxiety, depression, BPH, GERD, hypertension, high cholesterol, diabetes here with complaints of shortness of breath, chest and back pain. Patient tells me he tested positive for COVID 3 days ago. This is day 8 of symptoms. Patient tells me initially on day 1 and 2 he had chills and body aches and a cough. He never had a fever. He had persistent cough and is currently taking Robitussin for the cough. Today when he woke up he felt short of breath, complaining of back and chest discomfort which is worsened with deep breathing. No leg swelling or pain. No hemoptysis. No history of pulmonary embolism or DVT. Not on any AC therapy. cough is productive with green sputum He received [employer] vaccine x2 6 months ago Related Data Home Medications Medication Instructions Recorded Confirmed bupropion HCl 300 mg 24 hr tablet, 300 mg PO DAILY 03/11/20 01/20/21 extended release cetirizine 10 mg tablet 10 mg PO QAM 03/11/20 01/20/21 clonazepam 0.5 mg tablet mg PO 03/11/20 01/20/21 escitalopram oxalate 5 mg tablet 5 mg PO DAILY 03/11/20 01/20/21 ibuprofen 600 mg tablet 600 mg PO Q6H PRN 03/11/20 01/20/21 melatonin 5 mg tablet 500f10 mg PO BEDTIME 03/11/20 01/20/21 loperamide 2 mg capsule 1 cap PO Q6H PRN 08/21/20 01/20/21 ketotifen fumarate 0.025 % (0.035 1 drp OPHTHALMIC (EYE) PRN ml 11/24/20 01/20/21 %) eye drops multivitamin 1 tab PO DAILY 11/24/20 01/20/21 omeprazole 20 mg capsule,delayed 20 mg PO DAILY 01/20/21 01/20/21 release Previous Rx's Medication Instructions Recorded losartan 25 mg tablet 25 mg PO DAILY #90 tab 03/08/20 linaclotide 145 mcg capsule 145 mcg PO DAILY #90 cap 03/12/20 (Linzess) linagliptin 5 mg tablet (Tradjenta) 5 mg PO DAILY #90 tab 03/23/20 aluminum-mag hydroxide-simethicone 10 ml PO QID PRN 30 Days #1200 ml 06/11/20 200 mg-200 mg-20 mg/5 mL oral susp hydrochlorothiazide 25 mg tablet 25 mg PO DAILY 90 Days #90 tab 06/11/20 pravastatin 10 mg tablet 10 mg PO DAILY 90 Days #90 tab 06/11/20 terazosin 10 mg capsule 10 mg PO DAILY 90 Days #90 cap 06/11/20 blood sugar diagnostic #10 ea 08/26/20 fluticasone propionate 50 1 spray INTRANASAL DAILY #16 g 09/04/20 mcg/actuation nasal spray,suspension blood-glucose sensor (Freestyle #3 ea 10/05/20 Navigator Gluc Sens) lancets #100 ea 10/05/20 metformin 1,000 mg tablet 1,000 mg PO BID #180 tab 10/05/20 flash glucose sensor (FreeStyle #1 ea 10/14/20 Eduardo 14 Day Sensor) azelastine 137 mcg (0.1 %) nasal 1 spray INTRANASAL BID #30 ml 10/15/20 spray aerosol hydrocortisone 2.5 % topical cream 1 appl MA BID PRN #30 g 01/06/21 with perineal applicator (Proctozone-HC) methylcellulose (laxative) 500 mg 500 mg PO BID #60 tab 01/06/21 tablet (Citrucel) clotrimazole-betamethasone 1 1 appl TOPICAL BID 30 Days #15 g 01/20/21 %-0.05 % topical cream acetaminophen 500 mg capsule 1,000 mg PO Q8H PRN #90 cap 02/05/21 ofloxacin 0.3 % eye drops See Rx Instructions OPHTHALMIC 02/05/21 (EYE) .COMPLEX #10 ml azithromycin 250 mg tablet See Rx Instructions .ROUTE 02/08/21 .COMPLEX #6 tab benzonatate 100 mg capsule 100 mg PO TID PRN #20 cap 02/08/21 (Tesshani Alcantara) Allergies Allergy/AdvReac Type Severity Reaction Status Date / Time dicyclomine [Bentyl] Allergy Intermediate pruritus Verified 02/05/21 10:11 finasteride Allergy Intermediate rash Verified 02/05/21 10:11 hydrocodone [Vicodin] Allergy Intermediate rash Verified 02/05/21 10:11 lisinopril Allergy Intermediate myalgias Verified 02/05/21 10:11 morphine Allergy Intermediate unconscious Verified 02/05/21 10:11 Review of Systems Review of Systems: Yes all other systems are reviewed and are negative Constitutional: Constitutional: Reports no additional constitutional complaints, Denies body ache(s), Denies chills, Denies fever(s), Denies headache(s) and Denies weakness Eyes: Eyes: Reports no additional eye complaints and Denies change in vision ENT: Reports system reviewed and no additional complaints, except as documented, Denies dizziness, Denies headache(s), Denies nasal congestion, Denies nasal discharge and Denies neck pain Cardiovascular: Cardiovascular: Reports no additional cardiovascular complaints, Reports chest pain, Denies leg edema and Reports dyspnea Respiratory: Respiratory: Reports no additional respiratory complaints, Denies cough and Reports dyspnea Gastrointestinal: Gastrointestinal: Reports no additional gastrointestinal complaints, Denies abdominal pain, Denies diarrhea, Denies nausea and Denies vomiting Genitourinary: Genitourinary: Denies urinary incontinence Musculoskeletal: Musculoskeletal: Reports no additional musculoskeletal complaints, Reports back pain, Denies arthralgias, Denies joint swelling, Denies neck pain, Denies numbness and Denies tingling Integumentary/Breasts: Skin/Breast: Reports system reviewed and no additional complaints, except as docu and Denies rash Neurologic: Reports system reviewed and no additional complaints, except as documented, Denies Abnormal speech present, Denies dizziness, Denies headache(s), Denies numbness, Denies tingling and Denies weakness [facility] Past Medical History Attestation statement: The following information was validated with the patient. Source: old records reviewed and nursing notes reviewed Medical History BPH (benign prostatic hyperplasia) Chronic leg pain Cough Depression with anxiety Diabetes mellitus Dyslipidemia Essential hypertension PALOMA (generalized anxiety disorder) GERD (gastroesophageal reflux disease) Hemorrhoids Hiatal hernia Mild recurrent major depression Oral lesion Surgical History History of colonoscopy History of inguinal hernia repair History of lumbar fusion History of removal of cyst Family History Family History Father CVD (cardiovascular disease) Hypertension Mother CVD (cardiovascular disease) Hypertension Diabetes Sister Breast cancer Brother Acute appendicitis Diabetes Hypertension Social History Social History Household Members: Friend(s) Housing: Apartment Alcohol intake: never Patient Tobacco Use Status: Never used Tobacco Second Hand Smoke Exposure: No Advance Directives: No Advance Directives Information Provided: No Current occupational status: disabled Physical Exam Vital Signs: Vital Signs: Last Vital Signs Temp 98.5 F 02/08/21 10:39 Pulse 76 02/08/21 10:39 Resp 18 02/08/21 10:39 BP 128/72 02/08/21 10:39 Pulse Ox 100 02/08/21 10:39 Body Mass Index 29.0 Const: General: cooperative, healthy appearing, comfortable and no acute distress Orientation/consciousness: patient oriented x3 Limitations: no limitations HENMT: Head: Yes normal to inspection Ears: hearing grossly normal bilaterally General nose exam: Normal external nose present Face and sinus: Yes normal facial exam Mouth: Normal oral and palatal mucosa present Throat: Yes posterior oropharynx normal Eyes: General: appearance normal, both eyes and all related structures Pupils: Equal, round and reactive pupils present Neck: Neck: Yes normal visual inspection Chest: Chest palpation & inspection: normal inspection of the chest Resp: Effort & Inspection: normal respiratory effort Auscultation: clear to auscultation bilaterally Cardio: Rate: regular rate Rhythm: regular rhythm Peripheral pulses: Peripheral pulses 2+ throughout GI: Inspection: Yes normal to inspection Palpation (GI): Soft to palpation and nontender Auscultation: normal bowel sounds Back/Spine/Pelvis: Thoracic/Lumbar Spine: thoracic and lumbar spine normal to inspection Skin: General skin exam: no rashes or lesions noted Neuro: General: patient oriented x3, no focal motor deficits and normal sensation to monofilament Cranial nerves: Yes Equal, round and reactive pupils present Cognition (Neuro): normal cognition Speech: No Abnormal speech present Gait exam (Neuro): Normal gait present Motor exam (neuro): 5/5 motor strength present throughout Extrem: General: Yes normal to inspection, Yes no pedal edema and Yes no calf tenderness Course Course Course Narrative: 50-year-old male COVID positive here with complaints of shortness of breath, chest and back discomfort which is pleuritic in nature and continued cough. Will check EKG, CXR, labs. 1245-Labs show mild leukopenia seen with a viral syndrome otherwise unremarkable. CXR negative. EKG shows no ischemic changes. Vital all stable. Likely bronchitis with complaints of productive cough with green sputum. Ambulatory with oxygen saturation 100%. Reviewed worrisome signs/symptoms with patient and when to seek additional care. COmfortable with plan for discharge home. Medical Decision Making MDM Narrative Medical decision making narrative: ACS-less likely with atypical chest pain/normal EKG and tropinin, PE-negative d dimer, no clinical findings of DVT on exam, PNA Lab Data Result diagrams: 02/08/21 11:44 02/08/21 11:44 Labs: Lab Results 02/08/21 02/08/21 02/08/21 Range/Units 11:44 11:44 11:44 WBC 4.1 L (4.8-10.8) X10*3/uL RBC 5.07 (4.60-5.80) X10*6/uL Hgb 15.2 (14.0-18.0) g/dl Hct 43.4 (42-52) % MCV 85.6 (80-98) fL MCH 30.0 (27.0-33.0) pg MCHC 35.0 (31.0-36.0) g/dl RDW 13.2 (11.0-16.0) % Plt Count 212 (160-400) X10*3/uL MPV 10.2 (9.4-12.4) fL Immature Gran % (Auto) 0.2 (0.0-0.4) % Neut % (Auto) 63.2 (45-73) % Lymph % (Auto) 23.6 (20-40) % [place] % (Auto) 10.8 (2-11) % Eos % (Auto) 1.7 (0-4) % Baso % (Auto) 0.5 (0-2) % Lymph # (Auto) 1.0 L (1.2-4.9) X10*3/uL [place] # (Auto) 0.4 (0.1-1.2) X10*3/uL Eos # (Auto) 0.1 (0.0-0.4) X10*3/uL Baso # (Auto) 0.0 (0.0-0.2) X10*3/uL Abs Immat Gran (auto) 0.01 (0.00-0.03) X10*3/uL Absolute Neuts (auto) 2.6 (2.0-8.3) X10*3/uL Absolute Nucleated RBC 0.000 (0.0-0.012) X10*3/uL Nucleated RBC % (auto) 0.0 (0.0-0.2) /100WBC D-Dimer < 200 NG/ML Sodium 138 (135-145) mmol/L Potassium 3.7 (3.3-5.1) mmol/L Chloride 101 (96-108) mmol/L Carbon Dioxide 27 (22-29) mmol/L Anion Gap 14 (12-20) BUN 16 (9-16) mg/dL Creatinine 0.85 (0.5-1.4) mg/dL Estim Creat Clear Calc 102.0 Estimated GFR > 60 Random Glucose 143 H D (60-115) mg/dL Calcium 9.8 (8.4-10.2) mg/dL Total Bilirubin 0.5 (0.0-1.0) mg/dL Direct Bilirubin 0.3 (0.0-0.5) mg/dL AST 62 H (5-37) U/L ALT 101 H (0-40) U/L Alkaline Phosphatase 67 (39-117) U/L Troponin I High Sens (<3.5-35.0) ng/L Total Protein 8.3 H (6.5-8.0) g/dL Albumin 4.8 (3.5-5.0) g/dL 02/08/21 Range/Units 11:44 WBC (4.8-10.8) X10*3/uL RBC (4.60-5.80) X10*6/uL Hgb (14.0-18.0) g/dl Hct (42-52) % MCV (80-98) fL MCH (27.0-33.0) pg MCHC (31.0-36.0) g/dl RDW (11.0-16.0) % Plt Count (160-400) X10*3/uL MPV (9.4-12.4) fL Immature Gran % (Auto) (0.0-0.4) % Neut % (Auto) (45-73) % Lymph % (Auto) (20-40) % [place] % (Auto) (2-11) % Eos % (Auto) (0-4) % Baso % (Auto) (0-2) % Lymph # (Auto) (1.2-4.9) X10*3/uL [place] # (Auto) (0.1-1.2) X10*3/uL Eos # (Auto) (0.0-0.4) X10*3/uL Baso # (Auto) (0.0-0.2) X10*3/uL Abs Immat Gran (auto) (0.00-0.03) X10*3/uL Absolute Neuts (auto) (2.0-8.3) X10*3/uL Absolute Nucleated RBC (0.0-0.012) X10*3/uL Nucleated RBC % (auto) (0.0-0.2) /100WBC D-Dimer NG/ML Sodium (135-145) mmol/L Potassium (3.3-5.1) mmol/L Chloride (96-108) mmol/L Carbon Dioxide (22-29) mmol/L Anion Gap (12-20) BUN (9-16) mg/dL Creatinine (0.5-1.4) mg/dL Estim Creat Clear Calc Estimated GFR Random Glucose (60-115) mg/dL Calcium (8.4-10.2) mg/dL Total Bilirubin (0.0-1.0) mg/dL Direct Bilirubin (0.0-0.5) mg/dL AST (5-37) U/L ALT (0-40) U/L Alkaline Phosphatase (39-117) U/L Troponin I High Sens < 3.5 (<3.5-35.0) ng/L Total Protein (6.5-8.0) g/dL Albumin (3.5-5.0) g/dL Imaging Data Chest x-ray: Attestation: I personally reviewed and interpreted this imaging study as follows: Radiologist's impression: EXAMINATION: XR CHEST CLINICAL INFORMATION: COVID positive. COMPARISON: 09/29/2020 chest radiographs. TECHNIQUE: Frontal view of the chest was obtained. FINDINGS: The lungs are clear. There are no pleural effusions. The heart and mediastinal structures are unremarkable. Multiple surgical clips are again seen overlying the left axilla. XR/XR chest 1V IMPRESSION: No acute cardiopulmonary process. ? ECG Data Attestation: I personally reviewed and interpreted this ECG as follows: Interpretation: NSR with rate 87, normal rate, normal MA, normal QRS, normal QT Discharge Plan Discharge Clinical Impression: Bronchitis, COVID-19 Patient Disposition: Home, Self-Care Instructions: Acute Bronchitis (ED), COVID-19 (Coronavirus Disease 2019) (ED) Additional Instructions: Continue quarentine Increase fludis, rest continue cough medication Take motrin/tylenol for pain or fever Prescriptions: New azithromycin 250 mg tablet See Rx Instructions .ROUTE .COMPLEX Qty: 6 RF: 0 benzonatate [Tessalon Perles] 100 mg capsule 100 mg PO TID PRN (Reason: cough) Qty: 20 RF: 0 No Action losartan 25 mg tablet 25 mg PO DAILY Qty: 90 RF: 2 linaclotide [Linzess] 145 mcg capsule 145 mcg PO DAILY Qty: 90 RF: 0 linagliptin [Tradjenta] 5 mg tablet 5 mg PO DAILY Qty: 90 RF: 3 (DME) blood sugar diagnostic Strip See Rx Instructions ea Not Applicable BID Qty: 10 RF: 0 fluticasone propionate 50 mcg/actuation spray,suspension 1 spray intranasal DAILY Qty: 16 RF: 3 (DME) Freestyle Navigator Gluc Sens Device See Rx Instructions .ROUTE .MEDSUPPLY Qty: 3 RF: 0 (DME) lancets Misc See Rx Instructions ea Not Applicable BID Qty: 100 RF: 3 metformin 1,000 mg tablet 1,000 mg PO BID Qty: 180 RF: 3 (DME) FreeStyle Eduardo 14 Day Sensor Kit See Rx Instructions .ROUTE .MEDSUPPLY Qty: 1 RF: 0 loperamide 2 mg capsule 1 cap PO Q6H PRN (Reason: diarrhea) RF: 0 azelastine 137 mcg (0.1 %) aerosol,spray 1 spray intranasal BID Qty: 30 RF: 0 clonazepam 0.5 mg tablet PO RF: 0 melatonin 5 mg tablet 500f10 mg PO BEDTIME RF: 0 escitalopram oxalate 5 mg tablet 5 mg PO DAILY RF: 0 bupropion HCl 300 mg tablet extended release 24 hr 300 mg PO DAILY RF: 0 cetirizine 10 mg tablet 10 mg PO QAM RF: 0 ibuprofen 600 mg tablet 600 mg PO Q6H PRN (Reason: pain) RF: 0 alum-mag hydroxide-simeth 200-200-20 mg/5 mL suspension 10 ml PO QID PRN (Reason: indigestion) 30 Days Qty: 1200 RF: 6 terazosin 10 mg capsule 10 mg PO DAILY 90 Days Qty: 90 RF: 3 hydrochlorothiazide 25 mg tablet 25 mg PO DAILY 90 Days Qty: 90 RF: 3 pravastatin 10 mg tablet 10 mg PO DAILY 90 Days Qty: 90 RF: 3 omeprazole 20 mg capsule,delayed release(DR/EC) 20 mg PO DAILY RF: 0 clotrimazole-betamethasone 1-0.05 % cream 1 appl topical BID 30 Days Qty: 15 RF: 0 ofloxacin 0.3 % drops See Rx Instructions ophthalmic (eye) .COMPLEX Qty: 10 RF: 0 acetaminophen 500 mg capsule 1,000 mg PO Q8H PRN (Reason: pain) Qty: 90 RF: 0 multivitamin Tablet 1 tab PO DAILY RF: 0 ketotifen fumarate 0.025 % (0.035 %) drops 1 drp ophthalmic (eye) PRNRF: 0 Citrucel 500 mg tablet 500 mg PO BID Qty: 60 RF: 5 hydrocortisone [Proctozone-HC] 2.5 % cream with perineal applicator 1 appl MA BID PRN (Reason: hemorrhoids) Qty: 30 RF: 4 Referrals: Fang Salas MD [Primary Care Provider] - 2 days Interventions: ED Discharge Assessment Last Done: 02/08/21 12:58 Discharge Date/Time: 02/08/21 12:58 Print Language: [place]ian
[2021-02-08 11:47] LABS: MANUAL DIFF FLAG NO
[2021-02-08 11:50] LABS: Basophils Percent Auto 0.5 % (0-2); Eosinophils Absolute Auto 0.1 X10*3/uL (0.0-0.4); Eosinophils Percent Auto 1.7 % (0-4); Hematocrit 43.4 % (42-52); Hemoglobin 15.2 g/dl (14.0-18.0); Imm Gran Abs Auto 0.01 X10*3/uL (0.00-0.03); Imm Gran Pct Auto 0.2 % (0.0-0.4); Lymphocytes Percent Auto 23.6 % (20-40); Mean Corpuscular Volume 85.6 fL (80-98); Mean Platelet Volume 10.2 fL (9.4-12.4); Monocytes Absolute Auto 0.4 X10*3/uL (0.1-1.2); Monocytes Percent Auto 10.8 % (2-11); Neutrophils Absolute Auto 2.6 X10*3/uL (2.0-8.3); Neutrophils Percent Auto 63.2 % (45-73); Platelet Count 212 X10*3/uL (160-400); Red Blood Count 5.07 X10*6/uL (4.60-5.80); Red Cell Distribution Width 13.2 % (11.0-16.0); White Blood Count 4.1 X10*3/uL (4.8-10.8)
[2021-02-08 11:59] LABS: D Dimer < 200 NG/ML
[2021-02-08 12:05] LABS: Alanine Aminotransferase 101 U/L (0-40); Albumin Level 4.8 g/dL (3.5-5.0); Alkaline Phosphatase 67 U/L (39-117); Anion Gap 14 (12-20); Aspartate Amino Transferase 62 U/L (5-37); Bilirubin Direct 0.3 mg/dL (0.0-0.5); Bilirubin Total 0.5 mg/dL (0.0-1.0); Blood Urea Nitrogen 16 mg/dL (9-16); Calcium 9.8 mg/dL (8.4-10.2); Carbon Dioxide 27 mmol/L (22-29); Chloride 101 mmol/L (96-108); Estimated Glomerular Filt Rate > 60; Glucose Random 143 mg/dL (60-115); Potassium 3.7 mmol/L (3.3-5.1); Sodium 138 mmol/L (135-145); Total Protein 8.3 g/dL (6.5-8.0)
[2021-02-08 12:09] LABS: Troponin-I High Sensitivity < 3.5 ng/L (<3.5-35.0)
== END 2021-02-08 12:58 | disposition home or self-care (01) ==
PROVIDERS: Nurse Practitioner Family; Emergency Provider Student in an Organized Health Care Education/Training Program; PCP Internal Medicine
DX: U07.1 COVID-19 (principal); J40 Bronchitis, not specified as acute or chronic; R05.9 Cough, unspecified; Z79.899 Other long term (current) drug therapy
CPT/HCPCS: 36415; 71045; 80048; 80076; 84484; 85025; 85379; 93005; 99283

== ENCOUNTER 2021-06-04 08:45 | Outpatient (REF) | payer OTHER, SELFPAY ==
[2021-06-04 10:16] LABS: Alanine Aminotransferase 71 U/L (0-40); Albumin Level 4.3 g/dL (3.5-5.0); Alkaline Phosphatase 68 U/L (39-117); Anion Gap 11 (12-20); Aspartate Amino Transferase 36 U/L (5-37); Bilirubin Total 0.5 mg/dL (0.0-1.0); Blood Urea Nitrogen 21 mg/dL (9-16); Calcium 9.4 mg/dL (8.4-10.2); Carbon Dioxide 26 mmol/L (22-29); Chloride 109 mmol/L (96-108); Cholesterol 154 mg/dL; Estimated Glomerular Filt Rate > 60; Glucose Fasting 125 mg/dL (60-99); HDL Cholesterol 44 mg/dL; LDL Cholesterol Calculated 91 mg/dl; Potassium 4.5 mmol/L (3.3-5.1); Sodium 141 mmol/L (135-145); Total Protein 7.3 g/dL (6.5-8.0); Triglycerides 97 mg/dL
[2021-06-04 10:28] LABS: Microalbum/Creatinine Ratio Ur 20.1 ug/mg cr
[2021-06-04 10:38] LABS: PSA,Total (Free>4and<10) 0.49 ng/mL (0.00-4.00)
[2021-06-09 13:56] LABS: Vitamin D 25-OH, D2 <4 ng/mL; Vitamin D 25-OH, D3 20 ng/mL; Vitamin D 25-OH, Total 20 ng/mL (30-100)
== END 2021-06-04 08:46 | disposition home or self-care (01) ==
LOC: HO.LAB 08:45
PROVIDERS: PCP Internal Medicine; Visit Provider Internal Medicine
DX: E11.9 Type 2 diabetes mellitus without complications (principal); E78.5 Hyperlipidemia, unspecified; E55.9 Vitamin D deficiency, unspecified; Z12.5 Encounter for screening for malignant neoplasm of prostate
CPT/HCPCS: 36415; 80053; 80061; 82043; 82306; 84153

== ENCOUNTER → 2021-06-22 10:20 | Outpatient (BNVA) | payer OTHER, SELFPAY | PROVIDERS: PCP Internal Medicine; Visit Provider Physician Assistant | DX: Z13.89 Encounter for screening for other disorder (principal) ==

== ENCOUNTER 2021-06-22 11:06 | Outpatient (REF) | payer OTHER, SELFPAY ==
[2021-06-22 13:59] LABS: Thyroid Stimulating Hormone 1.41 uIU/mL (0.32-4.0)
[2021-06-23 04:00] LABS: HBS Num1 161.32 mIU/mL (0-7.99); Hepatitis A Antibody IgM 0.27 Index (0-0.79); Hepatitis B Core Antibody Nonreactive (Nonreactive); ~HepC Num1 0.08 S/CO (0.00-0.79); ~Hepatitis A Antibody IgM Nonreactive (Nonreactive); ~Hepatitis B Surface Antibody REACTIVE (Nonreactive); ~Hepatitis C Antibody Nonreactive (Nonreactive)
[2021-06-23 04:10] LABS: HBsAGNum1 0.23 S/CO (0.00-0.99); Hepatitis B Surface Antigen Negative (Negative)
[2021-06-23 13:06] LABS: Anti Nuclear Antibody Screen NEGATIVE (NEGATIVE)
[2021-06-23 14:41] LABS: Prot Elec - Albumin 4.8 g/dL (3.8-4.8); Prot Elec - Alpha1 0.3 g/dL (0.2-0.3); Prot Elec - Alpha2 0.7 g/dL (0.5-0.9); Prot Elec - Beta 1 0.5 g/dL (0.4-0.6); Prot Elec - Beta 2 0.4 g/dL (0.2-0.5); Prot Elec - Gamma 1.4 g/dL (0.8-1.7); Prot Elec - Total Protein 8.1 g/dL (6.1-8.1)
[2021-06-24 15:00] LABS: Mitochondrial Antibodies NEGATIVE (NEGATIVE)
[2021-06-25 23:36] LABS: Smooth Muscle Antibody <20 U (<20)
[2021-06-28 08:27] LABS: FIB-ALT 68 U/L (9-46); FIB-Alpha-2-Macroglobulin 285 mg/dL (106-279); FIB-Apolipoprotein A1 165 mg/dL (94-176); FIB-GGT 21 U/L (3-95); FIB-Haptoglobin 58 mg/dL (43-212); FIB-Total Bilirubin 0.5 mg/dL (0.2-1.2); Liver Fibrosis Stage F1-F2; Nec Inflam Act Grade A1-A2; Nec Inflam Act Score 0.44
== END 2021-06-22 11:07 | disposition home or self-care (01) ==
LOC: HO.WFDLDS 11:06
PROVIDERS: Visit Provider Physician Assistant
DX: R74.01 Elevation of levels of liver transaminase levels (principal); R79.89 Other specified abnormal findings of blood chemistry; K59.09 Other constipation; R74.8 Abnormal levels of other serum enzymes; B19.20 Unspecified viral hepatitis C without hepatic coma
CPT/HCPCS: 36415; 81596; 84165; 84443; 86015; 86038; 86039; 86255; 86256; 86704; 86706; 86709; 86803; 87340; 99202

== ENCOUNTER → 2021-07-22 08:45 | Outpatient (BNVA) | payer OTHER, SELFPAY | PROVIDERS: PCP Internal Medicine; Visit Provider Dietitian, Registered | DX: E11.9 Type 2 diabetes mellitus without complications (principal) | CPT/HCPCS: 97802 ==

== ENCOUNTER → 2021-08-17 10:17 | Outpatient (BNVA) | payer OTHER, SELFPAY | PROVIDERS: PCP Internal Medicine; Referring Provider Internal Medicine; Visit Provider Physician Assistant | DX: K21.9 Gastro-esophageal reflux disease without esophagitis (principal); K42.9 Umbilical hernia without obstruction or gangrene; K64.9 Unspecified hemorrhoids; R68.81 Early satiety; R11.0 Nausea; R10.9 Unspecified abdominal pain; R74.01 Elevation of levels of liver transaminase levels | CPT/HCPCS: 99212 ==

== ENCOUNTER 2021-09-01 09:23 | Outpatient (REF) | payer OTHER, SELFPAY ==
[2021-09-03 11:49] LABS: H Pylori Breath Test Negative (Negative)
== END 2021-09-01 09:24 | disposition home or self-care (01) ==
LOC: HO.LNP 09:23
PROVIDERS: PCP Internal Medicine; Referring Provider Internal Medicine; Visit Provider Physician Assistant
DX: K21.9 Gastro-esophageal reflux disease without esophagitis (principal); R11.0 Nausea; Z11.0 Encounter for screening for intestinal infectious diseases
CPT/HCPCS: 83013; 99211

== ENCOUNTER 2021-09-01 21:57 | Emergency (ER) | payer OTHER, SELFPAY ==
--- NOTE | 2021-09-01 | ECG_ITS ---
Test Reason : chest pain Blood Pressure : / mmHG Vent. Rate : 074 BPM Atrial Rate : 074 BPM P-R Int : 158 ms QRS Dur : 102 ms QT Int : 366 ms P-R-T Axes : 053 060 027 degrees QTc Int : 406 ms Normal sinus rhythm Incomplete right bundle branch block Cannot rule out Anterior infarct , age undetermined Abnormal ECG When compared with ECG of 08-FEB-2021 11:05, Incomplete right bundle branch block is now Present Referred By: Generic ED Physician Electronically Signed By:MAYRA HER MD
--- NOTE | ~2021-09-01 | XR_ITS ---
EXAMINATION: XR CHEST CLINICAL INFORMATION: Pain COMPARISON: 02/08/2021 TECHNIQUE: Frontal view of the chest was obtained. FINDINGS: Mild left basilar atelectasis. Mild right basilar atelectasis. The mid-upper lung zones are grossly clear. There is no effusion. There is no failure. The cardiac silhouette is comparable to previous. XR/XR chest 1V IMPRESSION: Mild bilateral basilar atelectasis.
[2021-09-01 22:01] VITALS: BP 145/89; PULSE 76; RESP 18; TEMP 528.7; TEMP 983.7; O2SAT 96; BMI 29.0
[2021-09-01 22:14] LABS: MANUAL DIFF FLAG NO
[2021-09-01 22:16] LABS: Basophils Absolute Auto 0.1 X10*3/uL (0.0-0.2); Basophils Percent Auto 0.8 % (0-2); Eosinophils Absolute Auto 0.3 X10*3/uL (0.0-0.4); Hematocrit 42.8 % (42.0-52.0); Imm Gran Abs Auto 0.03 X10*3/uL (0.00-0.03); Imm Gran Pct Auto 0.5 % (0.0-0.4); Lymphocytes Absolute Auto 2.1 X10*3/uL (1.2-4.9); Lymphocytes Percent Auto 32.8 % (20-40); Mean Corpuscular Hemoglobin 29.5 pg (27.0-33.0); Mean Corpuscular Volume 84.1 fL (80.0-98.0); Mean Platelet Volume 10.3 fL (9.4-12.4); Monocytes Absolute Auto 0.7 X10*3/uL (0.1-1.2); Monocytes Percent Auto 10.1 % (2-11); Neutrophils Absolute Auto 3.4 x10*3/uL (2.0-8.3); Neutrophils Percent Auto 51.8 % (45-73); Platelet Count 199 X10*3/uL (160-400); Red Blood Count 5.09 X10*6/uL (4.60-5.80); White Blood Count 6.5 X10*3/uL (4.8-10.8)
[2021-09-01 22:28] LABS: Anion Gap 13 (12-20); Blood Urea Nitrogen 21 mg/dL (9-16); Calcium 9.9 mg/dL (8.4-10.2); Carbon Dioxide 30 mmol/L (22-29); Chloride 102 mmol/L (96-108); Creatinine Clr Calc Pharmacy 79.5; Estimated Glomerular Filt Rate > 60; Glucose Random 247 mg/dL (60-115); Potassium 3.6 mmol/L (3.3-5.1); Sodium 141 mmol/L (135-145)
[2021-09-01 22:34] LABS: Troponin-I High Sensitivity < 3.5 ng/L (<3.5-35.0)
--- NOTE | 2021-09-01 23:48 | ED.CHESTPAIN ---
HPI - Chest Pain General Chief Complaint: Chest Pain Stated Complaint: cp Time Seen by Provider: 09/01/21 23:48 Source: patient Mode of arrival: ambulatory Limitations: no limitations History of Present Illness HPI narrative: Patient history of anxiety complaining of left-sided chest pain for last 1 year off and on especially when his goes to bed feels like sharp pain increases on palpation no shortness of breath patient is seen his PCP and plan see collections clerk no lesion or pain with exertion no shortness of breath no history of cocaine use Related Data Home Medications Medication Instructions Recorded Confirmed bupropion HCl 300 mg 24 hr tablet, 300 mg PO DAILY 03/11/20 09/01/21 extended release cetirizine 10 mg tablet 10 mg PO QAM 03/11/20 09/01/21 clonazepam 0.5 mg tablet mg PO 03/11/20 09/01/21 escitalopram oxalate 5 mg tablet 5 mg PO DAILY 03/11/20 09/01/21 ibuprofen 600 mg tablet 600 mg PO Q6H PRN 03/11/20 09/01/21 melatonin 5 mg tablet 500f10 mg PO BEDTIME 03/11/20 09/01/21 loperamide 2 mg capsule 1 cap PO Q6H PRN 08/21/20 09/01/21 ketotifen fumarate 0.025 % (0.035 1 drp OPHTHALMIC (EYE) PRN ml 11/24/20 09/01/21 %) eye drops multivitamin 1 tab PO DAILY 11/24/20 09/01/21 docusate sodium 100 mg capsule 200 mg PO BEDTIME 06/22/21 09/01/21 Previous Rx's Medication Instructions Recorded losartan 25 mg tablet 25 mg PO DAILY #90 tab 03/08/20 linaclotide 145 mcg capsule 145 mcg PO DAILY #90 cap 03/12/20 (Linzess) aluminum-mag hydroxide-simethicone 10 ml PO QID PRN 30 Days #1200 ml 06/11/20 200 mg-200 mg-20 mg/5 mL oral susp hydrochlorothiazide 25 mg tablet 25 mg PO DAILY 90 Days #90 tab 06/11/20 pravastatin 10 mg tablet 10 mg PO DAILY 90 Days #90 tab 06/11/20 fluticasone propionate 50 1 spray INTRANASAL DAILY #16 g 09/04/20 mcg/actuation nasal spray,suspension lancets #100 ea 10/05/20 metformin 1,000 mg tablet 1,000 mg PO BID #180 tab 10/05/20 azelastine 137 mcg (0.1 %) nasal 1 spray INTRANASAL BID #30 ml 10/15/20 spray aerosol hydrocortisone 2.5 % topical cream 1 appl AK BID PRN #30 g 01/06/21 with perineal applicator (Proctozone-HC) methylcellulose (laxative) 500 mg 500 mg PO BID #60 tab 01/06/21 tablet (Citrucel) acetaminophen 500 mg capsule 1,000 mg PO Q8H PRN #90 cap 02/05/21 chair lift #1 ea 03/09/21 hydroxyzine HCl 25 mg tablet 25 mg PO TID PRN 30 Days #90 tab 03/24/21 blood-glucose meter (FreeStyle #1 ea 05/04/21 Lite Meter) blood sugar diagnostic (FreeStyle 1 strip MISCELLANEOUS BID #150 05/31/21 Lite Strips) strip linagliptin 5 mg tablet (Tradjenta) 5 mg PO DAILY #90 tab 05/31/21 omeprazole 20 mg capsule,delayed 20 mg PO DAILY 90 Days #90 cap 05/31/21 release clotrimazole-betamethasone 1 1 appl TOPICAL BID 14 Days #15 g 06/08/21 %-0.05 % topical cream calcitriol 0.5 mcg capsule 0.5 mcg PO DAILY 90 Days #90 cap 06/09/21 nystatin 100,000 unit/gram topical 1 appl TOPICAL QID #30 g 07/08/21 ointment terazosin 10 mg capsule 10 mg PO DAILY 90 Days #90 cap 08/19/21 ibuprofen 600 mg tablet 600 mg PO Q6H PRN #20 tab 09/02/21 Allergies Allergy/AdvReac Type Severity Reaction Status Date / Time dicyclomine [Bentyl] Allergy Intermediate pruritus Verified 09/01/21 22:01 finasteride Allergy Intermediate rash Verified 09/01/21 15:52 hydrocodone [Vicodin] Allergy Intermediate rash Verified 09/01/21 15:52 lisinopril Allergy Intermediate myalgias Verified 09/01/21 15:52 morphine Allergy Intermediate unconscious Verified 09/01/21 15:52 Review of Systems Review of Systems: Yes all other systems are reviewed and are negative PMFSH Past Medical History Medical History BPH (benign prostatic hyperplasia) Candidal intertrigo Chest pain Chronic leg pain Cough Depression with anxiety Diabetes mellitus Dyslipidemia Essential hypertension PALOMA (generalized anxiety disorder) GERD (gastroesophageal reflux disease) Hemorrhoids Hiatal hernia Lumbar degenerative disc disease Mild recurrent major depression Oral lesion Transaminitis Umbilical hernia Surgical History History of colonoscopy History of inguinal hernia repair History of lumbar fusion History of removal of cyst Family History Family History Father CVD (cardiovascular disease) Hypertension Mother CVD (cardiovascular disease) Hypertension Diabetes Sister Breast cancer Brother Acute appendicitis Diabetes Hypertension Social History Social History Household Members: Friend(s) Housing: Apartment Alcohol intake: never Patient Tobacco Use Status: Never used Tobacco e-Cigarette/Vaping Use: Never Used Second Hand Smoke Exposure: No Advance Directives: No Advance Directives Information Provided: Yes service: No Current occupational status: disabled Cognitive needs: Yes Hearing needs: No Vision needs: No Physical Exam Vital Signs: Vital Signs: Last Vital Signs Temp 97.9 F 09/01/21 23:57 Pulse 74 09/02/21 00:26 Resp 15 09/02/21 00:26 BP 119/76 09/02/21 00:26 Pulse Ox 98 09/02/21 00:26 BMI result Body Mass Index 29.0 Appearance: Alert. Oriented X3. No acute distress. Eyes: PERRLA, No Nystagmus ENT: Pharynx normal. Oral Mucosa moist Neck: Normal inspection. Neck supple. CVS: Normal heart rate and rhythm. Pulses normal. Respiratory: No respiratory distress. Equal air entry bilateral, no wheezing/rales/rhonchi left chest wall tenderness++ Abdomen: Soft and nontender. Bowel sounds are present, no mass palpable, no CVA tenderness Skin: Skin warm and dry. Normal skin color. Normal skin turgor. Extremities: No lower extremity edema. No calf tenderness Neuro: Oriented X 3. No motor deficit. MDM - Chest Pain MDM Narrative Medical decision making narrative: Patient atypical chest pain for last 1 year notation with exertion EKG without any ischemic changes cardiac enzymes negative discharge patient to follow with PCP/cardiology Lab Data Attestation: I reviewed the patient's lab results. Result diagrams: 09/01/21 22:11 09/01/21 22:11 Labs: Lab Results 09/01/21 09/01/21 09/01/21 Range/Units 22:11 22:11 22:11 WBC 6.5 (4.8-10.8) X10*3/uL RBC 5.09 (4.60-5.80) X10*6/uL Hgb 15.0 (14.0-18.0) g/dl Hct 42.8 (42.0-52.0) % MCV 84.1 (80.0-98.0) fL MCH 29.5 (27.0-33.0) pg MCHC 35.0 (31.0-36.0) g/dl RDW 13.0 (11.0-16.0) % Plt Count 199 (160-400) X10*3/uL MPV 10.3 (9.4-12.4) fL Immature Gran % (Auto) 0.5 H (0.0-0.4) % Neut % (Auto) 51.8 (45-73) % Lymph % (Auto) 32.8 (20-40) % [place] % (Auto) 10.1 (2-11) % Eos % (Auto) 4.0 (0-4) % Baso % (Auto) 0.8 (0-2) % Lymph # (Auto) 2.1 (1.2-4.9) X10*3/uL [place] # (Auto) 0.7 (0.1-1.2) X10*3/uL Eos # (Auto) 0.3 (0.0-0.4) X10*3/uL Baso # (Auto) 0.1 (0.0-0.2) X10*3/uL Abs Immat Gran (auto) 0.03 (0.00-0.03) X10*3/uL Absolute Neuts (auto) 3.4 (2.0-8.3) x10*3/uL Absolute Nucleated RBC 0.000 (0.0-0.012) X10*3/uL Nucleated RBC % (auto) 0.0 (0.0-0.2) /100WBC Sodium 141 (135-145) mmol/L Potassium 3.6 (3.3-5.1) mmol/L Chloride 102 (96-108) mmol/L Carbon Dioxide 30 H (22-29) mmol/L Anion Gap 13 (12-20) BUN 21 H (9-16) mg/dL Creatinine 1.09 (0.5-1.4) mg/dL Estim Creat Clear Calc 79.5 Estimated GFR > 60 Random Glucose 247 H D (60-115) mg/dL Calcium 9.9 (8.4-10.2) mg/dL Troponin I High Sens < 3.5 (<3.5-35.0) ng/L ECG Data ECG #1: Attestation: I personally reviewed and interpreted this ECG as follows: Interpretation: Normal sinus rhythm heart rate 74 beats per min incomplete RBBB normal interval normal axis no acute ischemic changes Discharge Plan Discharge Clinical Impression: Chest pain Patient Disposition: Home, Self-Care Instructions: Chest Wall Pain (ED) Additional Instructions: Your chest pain is likely musculoskeletal Take ibuprofen for pain Follow-up with PCP/collections clerk as scheduled Es probable que domínguez dolor de pecho sea musculoesquel?victoriano Tammy ibuprofeno para el dolor. Seguimiento con PCP/cardi?logo seg?n lo programado Prescriptions: New ibuprofen 600 mg tablet 600 mg PO Q6H PRN (Reason: pain) Qty: 20 0RF No Action losartan 25 mg tablet 25 mg PO DAILY Qty: 90 2RF linaclotide [Linzess] 145 mcg capsule 145 mcg PO DAILY Qty: 90 0RF fluticasone propionate 50 mcg/actuation spray,suspension 1 spray intranasal DAILY Qty: 16 3RF (DME) lancets Misc See Rx Instructions ea Not Applicable BID Qty: 100 3RF Rx Instructions: As directed metformin 1,000 mg tablet 1,000 mg PO BID Qty: 180 3RF (DME) chair lift See Rx Instructions .Route .MEDSUPPLY Qty: 1 0RF Rx Instructions: As directed hydroxyzine HCl 25 mg tablet 25 mg PO TID PRN (Reason: itching) 30 Days Qty: 90 1RF Tradjenta 5 mg tablet 5 mg PO DAILY Qty: 90 3RF FreeStyle Lite Strips Strip 1 strip miscellaneous BID Qty: 150 0RF omeprazole 20 mg capsule,delayed release(DR/EC) 20 mg PO DAILY 90 Days Qty: 90 3RF clotrimazole-betamethasone 1-0.05 % cream 1 appl topical BID 14 Days Qty: 15 1RF calcitriol 0.5 mcg capsule 0.5 mcg PO DAILY 90 Days Qty: 90 3RF terazosin 10 mg capsule 10 mg PO DAILY 90 Days Qty: 90 3RF loperamide 2 mg capsule 1 cap PO Q6H PRN (Reason: diarrhea) 0RF azelastine 137 mcg (0.1 %) aerosol,spray 1 spray intranasal BID Qty: 30 0RF clonazepam 0.5 mg tablet PO 0RF melatonin 5 mg tablet 500f10 mg PO BEDTIME 0RF escitalopram oxalate 5 mg tablet 5 mg PO DAILY 0RF bupropion HCl 300 mg tablet extended release 24 hr 300 mg PO DAILY 0RF cetirizine 10 mg tablet 10 mg PO QAM 0RF ibuprofen 600 mg tablet 600 mg PO Q6H PRN (Reason: pain) 0RF alum-mag hydroxide-simeth 200-200-20 mg/5 mL suspension 10 ml PO QID PRN (Reason: indigestion) 30 Days Qty: 1200 6RF hydrochlorothiazide 25 mg tablet 25 mg PO DAILY 90 Days Qty: 90 3RF pravastatin 10 mg tablet 10 mg PO DAILY 90 Days Qty: 90 3RF (DME) blood-glucose meter [FreeStyle Lite Meter] Kit See Rx Instructions .Route Qty: 1 0RF Rx Instructions: As directed acetaminophen 500 mg capsule 1,000 mg PO Q8H PRN (Reason: pain) Qty: 90 0RF nystatin 100,000 unit/gram ointment 1 appl topical QID Qty: 30 0RF multivitamin Tablet 1 tab PO DAILY 0RF ketotifen fumarate 0.025 % (0.035 %) drops 1 drp ophthalmic (eye) PRN0RF Citrucel 500 mg tablet 500 mg PO BID Qty: 60 5RF hydrocortisone [Proctozone-HC] 2.5 % cream with perineal applicator 1 appl AK BID PRN (Reason: hemorrhoids) Qty: 30 4RF Rx Instructions: apply AK BID prn docusate sodium 100 mg capsule 200 mg PO BEDTIME 0RF Interventions: ED Discharge Assessment Last Done: 09/02/21 00:28 Discharge Date/Time: 09/02/21 00:28 Print Language: Cameroonian
[2021-09-01 23:57] VITALS: BP 131/77; PULSE 72; RESP 18; TEMP 36.6; O2SAT 97
[2021-09-02 00:09] VITALS: PULSE 72
[2021-09-02 00:26] VITALS: BP 119/76; PULSE 74; RESP 15; O2SAT 98
[2021-09-02] MEDS: Ibuprofen 600 MG TABLET PO (00:27)
== END 2021-09-02 00:28 | disposition home or self-care (01) ==
PROVIDERS: Emergency Provider Internal Medicine; PCP Internal Medicine
DX: R07.89 Other chest pain (principal); Z79.899 Other long term (current) drug therapy
CPT/HCPCS: 36415; 71045; 80048; 84484; 85025; 93005; 99283; 99284

== ENCOUNTER → 2021-09-10 08:48 | Outpatient (BNVA) | payer OTHER, SELFPAY | PROVIDERS: PCP Internal Medicine; Visit Provider Dietitian, Registered | DX: E11.9 Type 2 diabetes mellitus without complications (principal) | CPT/HCPCS: 97803 ==

== ENCOUNTER → 2021-09-16 09:41 | Outpatient (BNVA) | payer OTHER, SELFPAY | PROVIDERS: PCP Internal Medicine; Referring Provider Internal Medicine; Visit Provider Surgery | DX: K42.9 Umbilical hernia without obstruction or gangrene (principal) | CPT/HCPCS: 99202 ==

== ENCOUNTER → 2021-11-19 10:37 | Outpatient (BNVA) | payer OTHER, SELFPAY | PROVIDERS: PCP Internal Medicine; Referring Provider Internal Medicine; Visit Provider Internal Medicine Cardiovascular Disease | DX: R06.02 Shortness of breath (principal); R07.9 Chest pain, unspecified; E11.9 Type 2 diabetes mellitus without complications; I10 Essential (primary) hypertension; E78.5 Hyperlipidemia, unspecified | CPT/HCPCS: 99202 ==

== ENCOUNTER → 2021-12-31 08:14 | Outpatient (REF) | payer OTHER, SELFPAY ==
--- NOTE | ~2021-12-31 | NM_ITS ---
Lexiscan Myocardial perfusion study Indication: Shortness of breath, chest pain, assess for coronary disease and ischemia Technique: The patient was brought in for a Lexiscan perfusion study on 12/31/2021 and was injected 0.4 mg of Lexiscan intravenously. Within a minute of this injection 30 mCi of sestamibi was given intravenously. Images were obtained using the SPECT gamma camera interlaced with the gating device. Images were obtained in supine position. Resting perfusion study was performed on 01/03/2022. Patient was administered 30 mCi of sestamibi intravenously at rest. Images were then obtained in supine position. Total DLP 86mGy-cm. Images were processed with the software and compared side to side in short axis, horizontal long axis and vertical long axis views. Findings: Raw acquisition reviewed. The stress perfusion study showed no significant perfusion abnormality. Both uncorrected as well as CT attenuation corrected images were reviewed. The gated study shows normal LV systolic function with calculated LVEF of 67%. LV cavity is normal in size. The gated study shows normal wall thickening and contraction of segments. Resting study shows no significant perfusion abnormality. Gating at rest reveals normal wall motion with ejection fraction at 57%. The findings are consistent with no clear reversible or fixed perfusion defects. NM/NM renuka perf SPECT rest & str Impression: 1. Myocardial perfusion imaging study shows normal myocardial perfusion. 2. Gated LVEF is 67% during stress and 57% during rest. 3. Transient ischemic dilatation not present. EKG component of the test reported separately.
--- NOTE | 2021-12-31 08:16 | CA_ITS ---
Acquisition Time: 2021-12-31 08:31:46 Total Exercise Time: 00:02:00 Test Indications: Dyspnea Medications: SEE H Protocol: LEXISCAN Max HR: 096 BPM 57% of Pred: 167 BPM Max BP: 130/082 mmHG Max Work Load: 1.0 METS Pharmacological stress test with Lexiscan injection, while sitting and moving his right arm, without anginal symptoms, without arrythmia, with normotensive response to injection, with nondiagnostic EKG for ischemia. In recovery he reported nausea and abdominal discomfort which was treated with Aminophylline 75mg IVP to reverse Lexiscan with improvement. Nuclear images pending. Test reviewed with Dr Daniel. Referred By: Giovanny Prado Overread By: LISA FELIZ
== END ==
LOC: HO.CARD 08:14
PROVIDERS: PCP Internal Medicine; Visit Provider Internal Medicine Cardiovascular Disease
DX: R06.02 Shortness of breath (principal)
CPT/HCPCS: 78452; 93017; A9500; J0280; J2785

== ENCOUNTER → 2022-01-18 10:37 | Outpatient (REF) | payer OTHER, SELFPAY ==
--- NOTE | 2022-01-18 10:39 | CA_ITS ---
Transthoracic Echocardiogram Patient (Last, First, Middle): Reji Vela, Gender: Male Date of : 1970 Age: 51 Procedure Date: 01/18/2022 Procedure Type: Transthoracic Echocardiogram Location: OP Height: 172.72 cm Weight: 78.02 kg BSA: 1.92 m2 Heart Rate: bpm BP: 117 / 82 mmHg General Utility Worker: TO Referring MD: ARDEN NUNEZ Symptoms: R06.02 - Shortness of breath Study Quality: Fair ECG Rhythm: Sinus Conclusions: - The left ventricular systolic function is normal. The calculated ejection fraction is 59% by biplane method. - No obvious valvular pathology seen on this study. Findings Left Ventricle Normal left ventricular cavity size. There is normal left ventricular wall thickness. The left ventricular systolic function is normal. The calculated ejection fraction is 59% by biplane method. There is no evidence of regional wall motion abnormalities. Diastolic function is normal for age. Right Ventricle Normal right ventricular cavity size and systolic function. Atria Both atria are normal in size. Aortic Valve There is a normal trileaflet aortic valve. There is no aortic valve stenosis. There is no aortic valve regurgitation. Mitral Valve The mitral valve appears normal. There is no mitral valve regurgitation. There is no mitral valve stenosis. Pulmonic Valve The pulmonic valve is likely normal. Tricuspid Valve Normal tricuspid valve structure. There is trace tricuspid valve regurgitation. There is no evidence of pulmonary hypertension. Great Vessels The asc aorta is normal in size. Venous The inferior vena cava is normal in size and collapses greater than 50% with inspiration. Pericardium/Pleural There is a trivial pericardial effusion. Prior Study Comparison No significant change compared to prior study dated: 06/22/2017. Recommendations, Care & Conclusions No obvious valvular pathology seen on this study. Measurements 2D Linear Measurements IVSd: 1.02 0.6-0.9/0.6-1.0 cm LVIDd: 4.30 3.9-5.3/4.2-5.9 cm LVIDd Index: 2.24 2.4-3.2/2.2-3.1 cm/m2 LVIDs: 2.17 2.0-3.6 cm LVPWd: 1.03 0.7-1.1 cm LA Diam: 3.40 2.7-3.8/3.0-4.0 cm LAIDs Index: 1.77 1.5-2.3 cm/m2 LV Mass: 183.60 67-162/88-224 g LV Mass Index: 95.63 43-95/49-115 g/m2 LVOT Diam: 2.20 3.0+(-)1.3 cm 2D Systolic Function EF 4C: 58.70 >55% EF 2C: 61.40 >55% EF BiP: 58.70 >55% Mitral Valve MV Pk E: 0.72 MV PK A: 0.46 MV Decel Time: 216.00 E/A: 1.50 E'Lateral: 8.70 E'Medial: 5.87 E/E' Med: 12.20 E/E' Lat: 8.20 PHT: 63.00 MVA PHT: 3.49 Decel Mclean: 3.31 Aortic Valve AoV Pk Oskar: 1.22 AoV Mn Oskar: 0.84 AoV VTI: 0.23 AoV Pk Grad: 6.00 Aov Mn Grad: 3.00 PITO Cont.VTI: 3.06 LVOT LVOT Pk Oskar: 0.95 LVOT Mn Oskar: 0.59 LVOT VTI: 0.19 LVOT Pk Grad: 4.00 LVOT Mn Grad: 2.00 LVOT Diam: 2.20 LVOT Area: 3.80 Diastolic Function MV Pk E: 0.72 MV Pk A: 0.46 E/A: 1.50 E'Medial: 5.87 E/E' Med: 12.20 E' Laterial: 8.70 E/E' Lat: 8.20 Right Ventricle TAPSE (mm): 22.40 TVS' Oskar: 12.70 Tricuspid Valve TR Pk Oskar: 1.49 TR Pk Grad: 9.00 RA Press: 3.00 RVSP: 12.00 Great Vessels Aorta Sinus of Valsalva: 3.18 2.0-3.5 cm Ao Asc: 2.90 2.1-3.4 cm Updated in Other Vendor System with Status of Final Scott Lopez MD electronically signed on 01/19/2022 2:08:58 PM with status of Final
== END ==
LOC: HO.CARD 10:37
PROVIDERS: PCP Internal Medicine; Visit Provider Internal Medicine Cardiovascular Disease
DX: R06.02 Shortness of breath (principal)
CPT/HCPCS: 93306

== ENCOUNTER → 2022-01-25 14:21 | Outpatient (BNVA) | payer OTHER, SELFPAY | PROVIDERS: PCP Internal Medicine; Referring Provider Internal Medicine; Visit Provider Internal Medicine Cardiovascular Disease | DX: R06.02 Shortness of breath (principal) | CPT/HCPCS: 99212 ==

== ENCOUNTER 2022-04-13 09:02 | Outpatient (REF) | payer OTHER, SELFPAY ==
[2022-04-13 09:19] LABS: MANUAL DIFF FLAG NO
[2022-04-13 09:39] LABS: Basophils Absolute Auto 0.1 X10*3/uL (0.0-0.2); Basophils Percent Auto 1.1 % (0-2); Eosinophils Absolute Auto 0.3 X10*3/uL (0.0-0.4); Eosinophils Percent Auto 4.6 % (0-4); Hematocrit 46.6 % (42.0-52.0); Imm Gran Abs Auto 0.03 X10*3/uL (0.00-0.03); Imm Gran Pct Auto 0.5 % (0.0-0.4); Lymphocytes Absolute Auto 1.6 X10*3/uL (1.2-4.9); Lymphocytes Percent Auto 29.2 % (20-40); Mean Corpuscular HGB Conc 34.3 g/dl (31.0-36.0); Mean Corpuscular Hemoglobin 29.4 pg (27.0-33.0); Mean Corpuscular Volume 85.7 fL (80.0-98.0); Mean Platelet Volume 10.8 fL (9.4-12.4); Monocytes Absolute Auto 0.6 X10*3/uL (0.1-1.2); Monocytes Percent Auto 10.5 % (2-11); Neutrophils Percent Auto 54.1 % (45-73); Platelet Count 205 X10*3/uL (160-400); Red Blood Count 5.44 X10*6/uL (4.60-5.80); White Blood Count 5.6 X10*3/uL (4.8-10.8)
[2022-04-13 11:26] LABS: Alanine Aminotransferase 57 U/L (0-40); Albumin Level 4.6 g/dL (3.5-5.0); Alkaline Phosphatase 69 U/L (39-117); Anion Gap 12 (12-20); Aspartate Amino Transferase 36 U/L (5-37); Bilirubin Total 0.8 mg/dL (0.0-1.0); Blood Urea Nitrogen 24 mg/dL (9-16); Calcium 9.9 mg/dL (8.4-10.2); Carbon Dioxide 29 mmol/L (22-29); Chloride 103 mmol/L (96-108); Cholesterol 172 mg/dL; Estimated Glomerular Filt Rate > 60; Glucose Random 160 mg/dL (60-115); HDL Cholesterol 46 mg/dL; LDL Cholesterol Calculated 83 mg/dl; Potassium 4.2 mmol/L (3.3-5.1); Sodium 140 mmol/L (135-145); Thyroid Stimulating Hormone 1.79 uIU/mL (0.32-4.0); Total Protein 7.8 g/dL (6.5-8.0); Triglycerides 217 mg/dL
[2022-04-13 11:36] LABS: PSA,Total (Free>4and<10) 0.51 ng/mL (0.00-4.00); Vitamin D 25-OH Total 22.4 ng/mL (>30)
[2022-04-13 11:38] LABS: Folate 14.5 ng/mL (> or = 4.0); Vitamin B12 471 pg/mL (200-900)
== END 2022-04-13 09:03 | disposition home or self-care (01) ==
LOC: HO.LAB 09:02
PROVIDERS: Physician Assistant; PCP Internal Medicine; Visit Provider Internal Medicine
DX: Z12.5 Encounter for screening for malignant neoplasm of prostate (principal); R07.9 Chest pain, unspecified; R74.01 Elevation of levels of liver transaminase levels; R63.4 Abnormal weight loss; E55.9 Vitamin D deficiency, unspecified; E78.5 Hyperlipidemia, unspecified; R53.82 Chronic fatigue, unspecified
CPT/HCPCS: 36415; 80053; 80061; 82306; 82607; 82746; 84153; 84443; 85025

== ENCOUNTER 2022-04-21 18:32 | Outpatient (REF) | payer OTHER, SELFPAY ==
[2022-04-21 19:29] LABS: Influenza A PCR NEGATIVE (Negative); Influenza B PCR NEGATIVE (Negative); Resp Syncy Virus RNA Qual PCR NEGATIVE (Negative); SARS COV2 PCR INHOUSE POSITIVE (Negative)
== END 2022-04-21 18:33 | disposition home or self-care (01) ==
LOC: HO.LNP 18:32
PROVIDERS: Visit Provider Nurse Practitioner Family
DX: Z20.822 Contact with and (suspected) exposure to COVID-19 (principal); R09.89 Other specified symptoms and signs involving the circulatory and respiratory systems
CPT/HCPCS: 0241U

== ENCOUNTER → 2022-05-04 09:32 | Outpatient (BNVA) | payer OTHER, SELFPAY | PROVIDERS: PCP Internal Medicine; Visit Provider Dietitian, Registered | DX: E11.9 Type 2 diabetes mellitus without complications (principal) | CPT/HCPCS: 97803 ==

== ENCOUNTER 2022-05-13 08:56 | Outpatient (REF) | payer OTHER, SELFPAY ==
--- NOTE | ~2022-05-13 | US_ITS ---
EXAMINATION: US COMPLETE ABDOMEN WITH LIVER ELASTOGRAPHY CLINICAL INFORMATION: R74.8 - Abnormal levels of other serum enzymes COMPARISON: None. TECHNIQUE: Real-time imaging of the abdominal viscera. Noninvasive ultrasound liver fibrosis assessment is performed using Jake ElastPQ point quantification shear wave elastography (2D-SWE) with a C5-2 MHz transducer. Multiple elastography samples are obtained. FINDINGS: PANCREAS: Portions of the pancreas visualized appear normal in size and without ductal dilatation or retroperitoneal effusion. Scattered areas of the pancreas are obscured by bowel gas. ABDOMINAL AORTA: The proximal, middle, and distal aortic segments are normal in caliber. INFERIOR VENA CAVA: Visualized portions are normal. LIVER: The liver is normal in size and smooth in contour. There is increased hepatic parenchymal echogenicity consistent with hepatic steatosis. No focal hepatic parenchymal lesion. No intrahepatic biliary ductal dilatation. The right lobe measures 15.2 cm in length. The left lobe measures 11.1 cm in length. Portal flow is towards the liver (hepatopetal). Shear wave liver elastography median stiffness is 1.66 m/s (reference: normal median stiffness is 1.3 m/s or less). IQR/median stiffness to assess sampling precision is 0.11 (reference: good quality data set is IQR/median stiffness of 0.15 or less). GALLBLADDER: Normally distended with no wall thickening or pericholecystic fluid. No visible calculi or sludge. Negative sonographic Griffin's sign. COMMON BILE DUCT: Normal in caliber measuring 0.3 cm in diameter. RIGHT KIDNEY: Normal. No hydronephrosis. No renal calculi or focal parenchymal lesions. The kidney measures 12.6 cm in maximum dimension. LEFT KIDNEY: Normal. No hydronephrosis. No focal parenchymal lesions. The kidney measures 12.4 cm in maximum dimension. There are some specular echoes in the renal sinus but no posterior shadowing or twinkling artifact on color Doppler to suggest nonobstructing calculi. SPLEEN: Normal. The spleen measures 11.4 cm in maximum dimension. FREE FLUID: None. US/US abdomen comp w elastography IMPRESSION: 1. Hepatic steatosis. Liver normal in size. No focal parenchymal lesion. 2. Liver elastography: In the absence of other known clinical signs, measurements rule out compensated advanced chronic liver disease. If there are known clinical signs, further testing may be needed for confirmation. 3. No cholelithiasis or ductal dilatation. REFERENCE: Society of Radiologists in Ultrasound Liver Stiffness Thresholds (2020): LIVER STIFFNESS THRESHOLDS: *Liver Stiffness equal or less than 1.3 m/s: High probability of being normal. *Liver Stiffness less than 1.7 m/s: In the absence of other known clinical signs, rules out compensated advanced chronic liver disease. *Liver Stiffness 1.7-2.1 m/s: Suggestive of compensated advanced chronic liver disease but need further test for confirmation. *Liver Stiffness over 2.1 m/s: Rules in compensated advanced chronic liver disease. *Liver Stiffness over 2.4 m/s: Suggestive of clinically significant portal hypertension. QUALITY OF DATA SET: *IQR/Median value equal or less than 0.15 implies a quality data set. *IQR/Median value over 0.15 implies a poor quality data set. SIGNIFICANT CHANGE FROM PRIOR EXAM: Significant change if liver stiffness measurement is 10% or greater from prior exam. OTHER CONSIDERATIONS: The stage of liver fibrosis may be overestimated in the setting of acute hepatitis, liver inflammation, elevated liver function tests, hepatic vascular congestion, obstructive cholestasis, non-fasting state, and infiltrative diseases such as amyloidosis and lymphoma. In some patients with NAFLD, the liver stiffness thresholds for compensated advanced chronic liver disease may be lower. In causes other than viral hepatitis and NAFLD, liver stiffness thresholds are not well established.
[2022-05-13 09:59] LABS: MANUAL DIFF FLAG NO
[2022-05-13 10:17] LABS: Basophils Absolute Auto 0.1 X10*3/uL (0.0-0.2); Basophils Percent Auto 0.8 % (0-2); Eosinophils Absolute Auto 0.2 X10*3/uL (0.0-0.4); Eosinophils Percent Auto 2.4 % (0-4); Hematocrit 41.7 % (42.0-52.0); Hemoglobin 14.7 g/dl (14.0-18.0); Imm Gran Abs Auto 0.01 X10*3/uL (0.00-0.03); Imm Gran Pct Auto 0.1 % (0.0-0.4); Lymphocytes Absolute Auto 1.3 X10*3/uL (1.2-4.9); Lymphocytes Percent Auto 18.5 % (20-40); Mean Corpuscular HGB Conc 35.3 g/dl (31.0-36.0); Mean Corpuscular Hemoglobin 29.3 pg (27.0-33.0); Mean Corpuscular Volume 83.1 fL (80.0-98.0); Mean Platelet Volume 10.5 fL (9.4-12.4); Monocytes Absolute Auto 0.7 X10*3/uL (0.1-1.2); Monocytes Percent Auto 10.1 % (2-11); Neutrophils Absolute Auto 4.9 x10*3/uL (2.0-8.3); Neutrophils Percent Auto 68.1 % (45-73); Platelet Count 209 X10*3/uL (160-400); Red Blood Count 5.02 X10*6/uL (4.60-5.80); Red Cell Distribution Width 13.2 % (11.0-16.0); White Blood Count 7.1 X10*3/uL (4.8-10.8)
[2022-05-13 11:12] LABS: Estimated Average Glucose 160 mg/dL; Hemoglobin A1c % 7.2 %
[2022-05-13 11:20] LABS: Creatinine Urine 240.56 mg/dL; Microalbum/Creatinine Ratio Ur 32.8 ug/mg cr
[2022-05-13 11:33] LABS: Alanine Aminotransferase 38 U/L (0-40); Albumin Level 4.3 g/dL (3.5-5.0); Alkaline Phosphatase 87 U/L (39-117); Anion Gap 12 (12-20); Aspartate Amino Transferase 20 U/L (5-37); Bilirubin Total 0.4 mg/dL (0.0-1.0); Blood Urea Nitrogen 21 mg/dL (9-16); Calcium 9.7 mg/dL (8.4-10.2); Carbon Dioxide 27 mmol/L (22-29); Chloride 105 mmol/L (96-108); Cholesterol 155 mg/dL; Estimated Glomerular Filt Rate > 60; Glucose Fasting 180 mg/dL (60-99); HDL Cholesterol 40 mg/dL; LDL Cholesterol Calculated 83 mg/dl; Potassium 3.8 mmol/L (3.3-5.1); Sodium 140 mmol/L (135-145); Total Protein 7.3 g/dL (6.5-8.0); Triglycerides 162 mg/dL
[2022-05-13 11:38] LABS: Thyroid Stimulating Hormone 1.34 uIU/mL (0.32-4.0); Vitamin D 25-OH Total 24.7 ng/mL (>30)
== END 2022-05-13 08:57 | disposition home or self-care (01) ==
LOC: HO.US 08:56
PROVIDERS: Absent Provider Internal Medicine; PCP Internal Medicine; Visit Provider Physician Assistant
DX: E78.5 Hyperlipidemia, unspecified (principal); N40.0 Benign prostatic hyperplasia without lower urinary tract symptoms; R74.8 Abnormal levels of other serum enzymes; K52.9 Noninfective gastroenteritis and colitis, unspecified; E55.9 Vitamin D deficiency, unspecified; R07.9 Chest pain, unspecified; E11.40 Type 2 diabetes mellitus with diabetic neuropathy, unspecified; R74.01 Elevation of levels of liver transaminase levels; Z12.5 Encounter for screening for malignant neoplasm of prostate
CPT/HCPCS: 36415; 76705; 76981; 80053; 80061; 82043; 82306; 83036; 84153; 84443; 85025

== ENCOUNTER → 2022-09-14 14:06 | Outpatient (BNVA) | payer OTHER, SELFPAY | PROVIDERS: PCP Internal Medicine; Visit Provider Internal Medicine | DX: J30.9 Allergic rhinitis, unspecified (principal); R06.00 Dyspnea, unspecified; R53.82 Chronic fatigue, unspecified | CPT/HCPCS: 99202 ==

== ENCOUNTER 2022-12-20 10:05 | Outpatient (REF) | payer OTHER, SELFPAY ==
[2022-12-20 10:18] LABS: MANUAL DIFF FLAG NO
[2022-12-20 10:34] LABS: Basophils Absolute Auto 0.1 X10*3/uL (0.0-0.2); Basophils Percent Auto 0.7 % (0-2); Eosinophils Absolute Auto 0.1 X10*3/uL (0.0-0.4); Eosinophils Percent Auto 1.4 % (0-4); Hematocrit 46.4 % (42.0-52.0); Imm Gran Abs Auto 0.03 X10*3/uL (0.00-0.03); Imm Gran Pct Auto 0.4 % (0.0-0.4); Lymphocytes Absolute Auto 1.9 X10*3/uL (1.2-4.9); Lymphocytes Percent Auto 25.9 % (20-40); Mean Corpuscular HGB Conc 34.5 g/dl (31.0-36.0); Mean Corpuscular Hemoglobin 29.1 pg (27.0-33.0); Mean Corpuscular Volume 84.4 fL (80.0-98.0); Mean Platelet Volume 10.3 fL (9.4-12.4); Monocytes Absolute Auto 0.6 X10*3/uL (0.1-1.2); Monocytes Percent Auto 8.2 % (2-11); Neutrophils Absolute Auto 4.6 x10*3/uL (2.0-8.3); Neutrophils Percent Auto 63.4 % (45-73); Platelet Count 212 X10*3/uL (160-400); Red Cell Distribution Width 12.7 % (11.0-16.0); White Blood Count 7.2 X10*3/uL (4.8-10.8)
[2022-12-20 11:03] LABS: Appearance Urine Clear; Color Urine Dark Yellow; Glucose Urine UA Negative (Negative); Leukocyte Esterase Urine Negative (Negative); Nitrite Urine Negative (Negative); PH 5.5 (5.0-9.0); Specific Gravity - Urine >= 1.030 (1.005-1.025); UMIC TRIGGER UACC YES; Urine Blood Negative (Negative); Urine Ketones 15 mg/dL (Negative); Urine Protein 30 (1+) mg/dL (Neg-Trace)
[2022-12-20 11:04] LABS: Alanine Aminotransferase 33 U/L (0-40); Albumin Level 4.7 g/dL (3.5-5.0); Alkaline Phosphatase 73 U/L (39-117); Anion Gap 15 (12-20); Aspartate Amino Transferase 24 U/L (5-37); Bilirubin Total 0.7 mg/dL (0.0-1.0); Blood Urea Nitrogen 27 mg/dL (9-16); Calcium 10.2 mg/dL (8.4-10.2); Carbon Dioxide 28 mmol/L (22-29); Chloride 103 mmol/L (96-108); Cholesterol 159 mg/dL (<200); Estimated Glomerular Filt Rate > 60; Glucose Fasting 136 mg/dL (60-99); Glucose Random 135 mg/dL (60-115); HDL Cholesterol 48 mg/dL (>40); LDL Cholesterol Calculated 73 mg/dL (<100); Potassium 3.7 mmol/L (3.3-5.1); Sodium 142 mmol/L (135-145); Triglycerides 190 mg/dL (<150)
[2022-12-20 11:29] LABS: Vitamin D 25-OH Total 40.8 ng/mL (>30)
[2022-12-20 11:32] LABS: Microalbum/Creatinine Ratio Ur 18.7 ug/mg cr (<30)
[2022-12-20 11:45] LABS: Vitamin B12 354 pg/mL (200-900)
[2022-12-20 12:47] LABS: Bacteria Urine None Seen (None Seen); Calcium Oxalate Crystals Urine Present; Hyaline Casts Urine 0-2 /LPF (0-2); Squamous Epithelial Cell Urine 0-2 /HPF (0-2); WBC Urine 0-5 /HPF (0-5)
== END 2022-12-20 10:06 | disposition home or self-care (01) ==
LOC: HO.LAB 10:05
PROVIDERS: Physician Assistant; PCP Internal Medicine; Visit Provider Internal Medicine
DX: K76.0 Fatty (change of) liver, not elsewhere classified (principal); E11.9 Type 2 diabetes mellitus without complications; E55.9 Vitamin D deficiency, unspecified; E53.8 Deficiency of other specified B group vitamins; R74.8 Abnormal levels of other serum enzymes; E78.5 Hyperlipidemia, unspecified; R30.0 Dysuria; Z12.5 Encounter for screening for malignant neoplasm of prostate
CPT/HCPCS: 36415; 80053; 80061; 81001; 81003; 82043; 82306; 82607; 82746; 85025

== ENCOUNTER 2023-01-23 12:48 | Outpatient (AMB) | payer OTHER, SELFPAY ==
--- NOTE | 2023-01-23 12:50 | A.OFFPC_ITS ---
Vital Signs 01/23/23 12:53 Height 5 ft 6 in Weight 172 lb BMI 27.8 BP 126/80 Blood Pressure Location Lt brachial Position Sitting Intake Visit Reasons: DM Intake Note: Patient here for a follow up DM Osteologist Required: No Accompanied by: Self / Same As Patient Allergies dicyclomine [Bentyl] Allergy (Intermediate, Verified 01/23/23 12:58) pruritus finasteride Allergy (Intermediate, Verified 01/23/23 12:58) rash hydrocodone [Vicodin] Allergy (Intermediate, Verified 01/23/23 12:58) rash lisinopril Allergy (Intermediate, Verified 01/23/23 12:58) myalgias morphine Allergy (Intermediate, Verified 01/23/23 12:58) unconscious Medication List - Last Reconciled 01/23/23 by Fang Seals MD acetaminophen 1,000 mg (2 x 500 mg) PO Q8H PRN azelastine 1 spray intranasal BID blood sugar diagnostic As directed blood-glucose meter As directed bupropion HCl 300 mg PO DAILY cetirizine 10 mg PO QAM [chair lift As directed] cholecalciferol (vitamin D3) 25 mcg PO DAILY 90 days clonazepam mg PO clotrimazole-betamethasone 1-0.05 % 1 appl topical BID 14 days docusate sodium 200 mg (2 x 100 mg) PO .qhs escitalopram oxalate 5 mg PO DAILY flash glucose scanning reader ([employer] Eduardo 14 Day [place]) As directed flash glucose sensor (FreeStyle Eduardo 14 Day Sensor kit) As directed fluticasone propionate 50 mcg/actuation 1 spray intranasal DAILY hydrochlorothiazide 25 mg PO DAILY 90 days hydrocortisone 2.5% (Proctozone-HC) 1 appl [place] BID PRN hydroxyzine HCl 25 mg PO TID PRN 30 days ibuprofen 600 mg PO Q6H PRN ketotifen fumarate 0.025%(0.035%) 1 drp ophthalmic (eye) PRN lancets (OneTouch Delica Lancets) As directed linaclotide (Linzess) 145 mcg PO DAILY linagliptin (Tradjenta) 5 mg PO DAILY metformin 1,000 mg PO BID methylcellulose (laxative) (Citrucel) 500 mg PO BID multivitamin 1 tab PO DAILY nystatin 1 appl topical QID omeprazole 20 mg PO DAILY 90 days pravastatin 20 mg PO BEDTIME 90 days terazosin 10 mg PO DAILY 90 days Tobacco use date assessed: 08/15/22 Dental Screening Dental Screen Date: 01/23/23 Did you have a dental visit in the last 12 months?: Yes Did you have a dental problem in the last 6 months where you did not have access to dental care?: No Was dental information given to patient?: Patient has dentist HPI HPI Comments History of Present Illness Details This is a 52-year-old male with diabetes mellitus type 2, hypertension, dyslipidemia and mild recurrent major depression that comes today for follow-up on his conditions. A1c in within goal. Blood pressure stable. LDL very close to goal. Depression well controlled with bupropion. Has some mild microalbuminuria and used to see Nephrology but has not seen him in over a year. Will be referred to Nephrology. No chest pain or shortness of breath. [facility] Medical History (Updated 01/23/23 @ 13:08 by Fang Seals MD) Allergic rhinitis Chest pain Umbilical hernia Candidal intertrigo Transaminitis Lumbar degenerative disc disease PALOMA (generalized anxiety disorder) Mild recurrent major depression Oral lesion Cough Hiatal hernia Hemorrhoids BPH (benign prostatic hyperplasia) Depression with anxiety Chronic leg pain GERD (gastroesophageal reflux disease) Dyslipidemia Essential hypertension Diabetes mellitus Surgical History History of colonoscopy History of removal of cyst History of inguinal hernia repair History of lumbar fusion Family History Father CVD (cardiovascular disease) Hypertension Mother CVD (cardiovascular disease) Hypertension Diabetes Sister Breast cancer Brother Acute appendicitis Diabetes Hypertension Social History Household Members: Friend(s) Housing: Apartment Alcohol intake: never Patient Tobacco Use Status: Never used Tobacco e-Cigarette/Vaping Use: Never Used Second Hand Smoke Exposure: No service: No Current occupational status: disabled Cognitive needs: Yes Hearing needs: No Vision needs: No Questionnaire Thrive Questionnaire Date Thrive assessed: 08/15/22 PALOMA-7 AMB Questionnaire PALOMA-7 Date PALOMA - 7 assessed: 08/15/22 Source: Developed by Drs. Chirag Bass, Cat Wong, Sivakumar Melvin and colleagues, with an educational elidia from [employer]. Review of Systems Const All systems reviewed & are unremarkable except as noted in HPI and below Eyes Reports no additional complaints, Denies change in vision and Denies other visual disturbances Card Denies chest pain at rest, Denies chest pain with activity, Denies edema, Denies irregular heart rhythm, Denies claudication, Denies dyspnea, Denies dyspnea on exertion, Denies orthopnea, Denies paroxysmal nocturnal dyspnea and Denies slow heart rate Resp Denies cough, Denies dyspnea and Denies dyspnea on exertion GI Denies abdominal pain, Denies change in bowel habits, Denies excessive flatus, Denies nausea and Denies vomiting Denies urinary hesitancy, Denies urinary incontinence and Denies urinary urgency Musc Denies abnormal gait, Denies atrophy, Denies deformity and Denies limited range of motion Skin/Breast Denies bleeding lesions, Denies changing lesions and Denies rash Neuro Denies abnormal gait and Denies lack of coordination Physical exam (Primary Care) Vital Signs: Last Vital Signs BP 126/80 01/23/23 12:53 BMI result Body Mass Index 27.8 Tobacco/Smoking Status: Tobacco use Status Tobacco use date assessed 08/15/22 01/23/23 12:51 Patient Tobacco Use Status Never used Tobacco 01/23/23 12:51 e-Cigarette/Vaping Use Never Used 01/23/23 12:51 Thrive Assessment: Date of Thrive Assessment Date Thrive assessed 08/15/22 01/23/23 12:51 Eyes General: appearance normal, both eyes and all related structures Eyelids: Yes eyelids normal Conjunctivae: conjunctivae normal Neck Neck: Yes normal visual inspection and Yes supple Resp Effort & Inspection: normal respiratory effort Auscultation: clear to auscultation bilaterally Cardio Jugular venous distension: no JVD Rate: regular rate Rhythm: regular rhythm Heart sounds: S1 normal heart sound present and S2 normal heart sound present Extrem General: Yes full ROM Office Procedures Flu Questionnaire Does the patient have a severe egg allergy?: No Does the patient have severe life threatening allergies?: No Does the patient have a fever or illness today?: No Has the patient ever had Guillain-[place] Syndrome?: No Has the patient ever had any past reaction to a flu shot?: No Results AMB Hemoglobin A1c AMB Hemoglobin A1c 6.5 % Last Edit by LESVIA Craig on 01/23/23 13:0 2 Immunizations flu vacc [id number] 6mos up(PF) 60 mcg(15 mcgx4)/0.5 mL IM syringe Performing Provider: Fang Seals MD [facility] Administered by: LESVIA Craig on 01/23/23 13:12 Dose Route Admin Location Dispensed Lot Number Expiration Date NDC Ditch Repairer 0.5 mL IM Right Deltoid 0.5 mL [id number] 10/22/23 [id number] Panjo VIS Given Date VIS Provided VIS Publication Date 01/23/23 Single Vaccine 20 Eligibility Eligibility Date Funding Source Not [facility] Eligible 01/23/23 Private Results Reviewed Results Reviewed: Laboratory Last Values Hgb A1c (Clinic) 6.5 % (4.0-6.0) H 01/23/23 13:01 Assessment and Plan Assessment & Plan (1) Diabetes mellitus: Comment: NIDDM Code(s): E11.9 - Type 2 diabetes mellitus without complications Qualifiers: Diabetes mellitus type: type 2 Diabetes mellitus [facility] insulin use: without [facility] use Diabetes mellitus complication status: without compli cation Qualified Code(s): E11.9 - Type 2 diabetes mellitus without complications Plan: Continue metformin and Tradjenta. A1c goal is equal or less than 7%. (2) Essential hypertension: Code(s): I10 - Essential (primary) hypertension Plan: Continue hydrochlorothiazide. Blood pressure goal is equal or less than 130/80. (3) Dyslipidemia: Code(s): E78.5 - Hyperlipidemia, unspecified Plan: Continue statins. LDL goal is less than 70. (4) Mild recurrent major depression: Code(s): F33.0 - Major depressive disorder, recurrent, mild Plan: Continue bupropion. (5) Microalbuminuria: Code(s): R80.9 - Proteinuria, unspecified Plan: Referred to Nephrology. Orders: Orders PSA,Total (Free>4and<10) Today Z12.5 - Encounter for screening for malignant neoplasm of prostate Influenza [id number] Immunization Today Z23 - Encounter for immunization AMB Hemoglobin A1c Today E11.9 - Type 2 diabetes mellitus without complications Referrals Ophthalmology Referral E11.9 - Type 2 diabetes mellitus without complications Nephrology Referral R80.9 - Proteinuria, unspecified Coding Level of Care Code Est Pt Level 4 (02519) Diagnoses Type 2 diabetes mellitus without complication, without long-term current use of insulin E11.9 Diabetes mellitus type: type 2 Diabetes mellitus 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
[2023-01-23 12:53] VITALS: BP 126/80; BMI 27.8
== END 2023-01-23 13:47 | disposition home or self-care (01) ==
PROVIDERS: PCP Internal Medicine; Visit Provider Internal Medicine
DX: E11.9 Type 2 diabetes mellitus without complications (principal); I10 Essential (primary) hypertension; E78.5 Hyperlipidemia, unspecified; F33.0 Major depressive disorder, recurrent, mild; R80.9 Proteinuria, unspecified; Z23 Encounter for immunization
CPT/HCPCS: 83036; 90471; 90686; 99214

== ENCOUNTER 2023-02-14 09:46 | Outpatient (AMB) | payer OTHER, SELFPAY ==
--- NOTE | 2023-02-14 09:49 | AM.OFFWIN_ITS ---
Intake Vital Signs 02/14/23 09:59 Height 5 ft 6 in Weight 176 lb BMI 28.4 BP 130/70 Blood Pressure Location Rt brachial Position Sitting Pulse 77 Pulse Source Pulse Oximeter Temp 97.6 F Temp Source Temporal Artery Scan Pulse Oximetry (%) 98 Oxygen Delivery Method Room Air Intake Visit Reasons: EP, head congestion, cough (masked) Intake Note: Pt is here c/o loss of voice two weeks ago which he was able to do at home remedies to help him. Pt states his voice is a lot better but he now feels like he has a bilateral ear infection. Pt also states he has a bad cough and has history of bronchitis. Patient Tobacco Use Status: Never used Tobacco Allergies dicyclomine [Bentyl] Allergy (Intermediate, Verified 02/14/23 10:36) pruritus finasteride Allergy (Intermediate, Verified 02/14/23 10:36) rash hydrocodone [Vicodin] Allergy (Intermediate, Verified 02/14/23 10:36) rash lisinopril Allergy (Intermediate, Verified 02/14/23 10:36) myalgias morphine Allergy (Intermediate, Verified 02/14/23 10:36) unconscious Medication List - Last Reconciled 02/14/23 by Ventura Randolph MD acetaminophen 1,000 mg (2 x 500 mg) PO Q8H PRN azelastine 1 spray intranasal BID blood sugar diagnostic As directed blood-glucose meter As directed bupropion HCl 300 mg PO DAILY cetirizine 10 mg PO QAM [chair lift As directed] cholecalciferol (vitamin D3) 25 mcg PO DAILY 90 days clonazepam mg PO clotrimazole-betamethasone 1-0.05 % 1 appl topical BID 14 days docusate sodium 200 mg (2 x 100 mg) PO .qhs escitalopram oxalate 5 mg PO DAILY flash glucose scanning reader ([employer] Eduardo 14 Day [place]) As directed flash glucose sensor (FreeStyle Eduardo 14 Day Sensor kit) As directed fluticasone propionate 50 mcg/actuation 1 spray intranasal DAILY hydrochlorothiazide 25 mg PO DAILY 90 days hydrocortisone 2.5% (Proctozone-HC) 1 appl [place] BID PRN hydroxyzine HCl 25 mg PO TID PRN 30 days ibuprofen 600 mg PO Q6H PRN ketotifen fumarate 0.025%(0.035%) 1 drp ophthalmic (eye) PRN lancets (OneTouch Delica Lancets) As directed linaclotide (Linzess) 145 mcg PO DAILY linagliptin (Tradjenta) 5 mg PO DAILY metformin 1,000 mg PO BID methylcellulose (laxative) (Citrucel) 500 mg PO BID multivitamin 1 tab PO DAILY nystatin 1 appl topical QID omeprazole 20 mg PO DAILY 90 days pravastatin 20 mg PO BEDTIME 90 days terazosin 10 mg PO DAILY 90 days Do you need a note to return to daycare/school/sports/work: No HPI EP, head congestion, cough (masked) HPI Details Patient presents for a sick visit. Reporting symptoms of sinus congestion, sore throat and difficulty swallowing. Low-grade fever. No family member is sick. No recent travel. Patient reports symptoms of malaise and fatigue. [facility] Medical History Allergic rhinitis Chest pain Umbilical hernia Candidal intertrigo Transaminitis Lumbar degenerative disc disease PALOMA (generalized anxiety disorder) Mild recurrent major depression Oral lesion Cough Hiatal hernia Hemorrhoids BPH (benign prostatic hyperplasia) Depression with anxiety Chronic leg pain GERD (gastroesophageal reflux disease) Dyslipidemia Essential hypertension Diabetes mellitus Surgical History History of colonoscopy History of removal of cyst History of inguinal hernia repair History of lumbar fusion Family History Father CVD (cardiovascular disease) Hypertension Mother CVD (cardiovascular disease) Hypertension Diabetes Sister Breast cancer Brother Acute appendicitis Diabetes Hypertension Social History Household Members: Friend(s) Housing: Apartment Alcohol intake: never Patient Tobacco Use Status: Never used Tobacco e-Cigarette/Vaping Use: Never Used Second Hand Smoke Exposure: No service: No Current occupational status: disabled Cognitive needs: Yes Hearing needs: No Vision needs: No Physical Exam Vital Signs: Last Vital Signs Temp 97.6 F 02/14/23 09:59 Pulse 77 02/14/23 09:59 BP 130/70 02/14/23 09:59 Pulse Ox 98 02/14/23 09:59 Oxygen Delivery Method Room Air 02/14/23 09:59 BMI result Body Mass Index 28.4 Const General: cooperative and healthy appearing Nutritional Appearance: well nourished Orientation/consciousness: patient oriented x3 Limitations: no limitations HEENT Head: Yes normal to inspection Eyes General: appearance normal, both eyes and all related structures Neck Neck: Yes normal visual inspection Chest Chest palpation & inspection: normal palpation of entire chest wall Resp Effort & Inspection: normal respiratory effort Neuro General: patient oriented x3 Assessment & Plan Assessment & Plan (1) Upper respiratory tract infection: Code(s): J06.9 - Acute upper respiratory infection, unspecified Plan: Antibiotics ordered. Increase fluid intake. Tylenol for aches and pains. If symptoms worsen, follow-up here for a recheck. Coding Level of Care Code Est Pt Level 3 (62825) Diagnoses Upper respiratory tract infection J06.9
[2023-02-14 09:59] VITALS: BP 130/70; PULSE 77; TEMP 36.4; O2SAT 98; BMI 28.4
== END 2023-02-14 10:43 | disposition home or self-care (01) ==
PROVIDERS: PCP Internal Medicine; Visit Provider Internal Medicine
DX: J06.9 Acute upper respiratory infection, unspecified (principal)
CPT/HCPCS: 99213

== ENCOUNTER 2023-02-21 10:04 | Outpatient (AMB) | payer OTHER, SELFPAY ==
--- NOTE | 2023-02-21 12:37 | MHC.OFFWIV ---
Intake Vital Signs 02/21/23 12:43 Height 5 ft 6 in Weight 175 lb BMI 28.2 BP 120/88 Blood Pressure Location Lt brachial Position Sitting Pulse 76 Pulse Source Pulse Oximeter Temp 99.1 F Temp Source Oral Pulse Oximetry (%) 99 Oxygen Delivery Method Room Air Intake Visit Reasons: EST/on going cough/[phone] Intake Note: Pt is here today recurrent coughing with yellowish phelgm Patient Tobacco Use Status: Never used Tobacco Allergies dicyclomine [Bentyl] Allergy (Intermediate, Verified 02/21/23 13:07) pruritus finasteride Allergy (Intermediate, Verified 02/21/23 13:07) rash hydrocodone [Vicodin] Allergy (Intermediate, Verified 02/21/23 13:07) rash lisinopril Allergy (Intermediate, Verified 02/21/23 13:07) myalgias morphine Allergy (Intermediate, Verified 02/21/23 13:07) unconscious Medication List - Last Reconciled 02/21/23 by Ventura Randolph MD acetaminophen 1,000 mg (2 x 500 mg) PO Q8H PRN azelastine 1 spray intranasal BID blood sugar diagnostic As directed blood-glucose meter As directed bupropion HCl 300 mg PO DAILY cetirizine 10 mg PO QAM [chair lift As directed] cholecalciferol (vitamin D3) 25 mcg PO DAILY 90 days clonazepam mg PO clotrimazole-betamethasone 1-0.05 % 1 appl topical BID 14 days docusate sodium 200 mg (2 x 100 mg) PO .qhs escitalopram oxalate 5 mg PO DAILY flash glucose scanning reader (FreeStyle Eduardo 14 Day [place]) As directed flash glucose sensor (FreeStyle Eduardo 14 Day Sensor kit) As directed fluticasone propionate 50 mcg/actuation 1 spray intranasal DAILY hydrochlorothiazide 25 mg PO DAILY 90 days hydrocortisone 2.5% (Proctozone-HC) 1 appl [place] BID PRN hydroxyzine HCl 25 mg PO TID PRN 30 days ibuprofen 600 mg PO Q6H PRN ketotifen fumarate 0.025%(0.035%) 1 drp ophthalmic (eye) PRN lancets (OneTouch Delica Lancets) As directed linaclotide (Linzess) 145 mcg PO DAILY linagliptin (Tradjenta) 5 mg PO DAILY metformin 1,000 mg PO BID methylcellulose (laxative) (Citrucel) 500 mg PO BID multivitamin 1 tab PO DAILY nystatin 1 appl topical QID omeprazole 20 mg PO DAILY 90 days pravastatin 20 mg PO BEDTIME 90 days terazosin 10 mg PO DAILY 90 days HPI EST/on going cough/[phone] HPI Details 52-year-old male presents to the office for a sick visit. Patient continues to have cough. Nonproductive but spasmodic. Irritating in nature. Associated with slight wheezing. Has completed the antibiotics started in the last visit. [facility] Medical History Allergic rhinitis Chest pain Umbilical hernia Candidal intertrigo Transaminitis Lumbar degenerative disc disease PALOMA (generalized anxiety disorder) Mild recurrent major depression Oral lesion Cough Hiatal hernia Hemorrhoids BPH (benign prostatic hyperplasia) Depression with anxiety Chronic leg pain GERD (gastroesophageal reflux disease) Dyslipidemia Essential hypertension Diabetes mellitus Surgical History History of colonoscopy History of removal of cyst History of inguinal hernia repair History of lumbar fusion Family History Father CVD (cardiovascular disease) Hypertension Mother CVD (cardiovascular disease) Hypertension Diabetes Sister Breast cancer Brother Acute appendicitis Diabetes Hypertension Social History Household Members: Friend(s) Housing: Apartment Alcohol intake: never Patient Tobacco Use Status: Never used Tobacco e-Cigarette/Vaping Use: Never Used Second Hand Smoke Exposure: No service: No Current occupational status: disabled Cognitive needs: Yes Hearing needs: No Vision needs: No Physical Exam Vital Signs: Last Vital Signs Temp 99.1 F 02/21/23 12:43 Pulse 76 02/21/23 12:43 BP 120/88 02/21/23 12:43 Pulse Ox 99 02/21/23 12:43 Oxygen Delivery Method Room Air 02/21/23 12:43 BMI result Body Mass Index 28.2 Const General: cooperative and healthy appearing Nutritional Appearance: well nourished Orientation/consciousness: patient oriented x3 Limitations: no limitations HEENT Head: Yes normal to inspection Eyes General: appearance normal, both eyes and all related structures Neck Neck: Yes normal visual inspection Chest Chest palpation & inspection: normal palpation of entire chest wall Resp Effort & Inspection: normal respiratory effort Neuro General: patient oriented x3 Assessment & Plan Assessment & Plan (1) Upper respiratory tract infection: Code(s): J06.9 - Acute upper respiratory infection, unspecified Plan: Chest x-ray images reviewed by me. Prednisone and Robitussin with codeine prescribed. Orders: Orders XR chest 2V Today R05.9 - Cough, unspecified Coding Level of Care Code Est Pt Level 4 (07931) Diagnoses Upper respiratory tract infection J06.9
[2023-02-21 12:43] VITALS: BP 120/88; PULSE 76; TEMP 37.3; O2SAT 99; BMI 28.2
== END 2023-02-21 13:33 | disposition home or self-care (01) ==
PROVIDERS: PCP Internal Medicine; Visit Provider Internal Medicine
DX: J06.9 Acute upper respiratory infection, unspecified (principal)
CPT/HCPCS: 99214

== ENCOUNTER 2023-02-21 13:07 | Outpatient (REF) | payer OTHER, SELFPAY ==
--- NOTE | ~2023-02-21 | XR_ITS ---
EXAMINATION: XR CHEST 2 VIEW CLINICAL INFORMATION: Cough COMPARISON: 09/01/2021 TECHNIQUE: PA and lateral views of the chest obtained. FINDINGS: The lungs are clear. There are no pleural effusions. The cardiomediastinal silhouette is normal. Surgical clips are again evident in the left axilla. XR/XR chest 2V IMPRESSION: No acute cardiopulmonary disease.
== END 2023-02-21 13:08 | disposition home or self-care (01) ==
LOC: HO.HMGCX 13:07
PROVIDERS: PCP Internal Medicine; Visit Provider Internal Medicine
DX: R05.9 Cough, unspecified (principal)
CPT/HCPCS: 71046

== ENCOUNTER 2023-03-13 14:57 | Outpatient (AMB) | payer OTHER, SELFPAY ==
--- NOTE | 2023-03-13 15:12 | MHC.PC.OV ---
Vital Signs 03/13/23 15:13 Height 5 ft 6 in Weight 173 lb BMI 27.9 BP 130/80 Blood Pressure Location Lt brachial Position Sitting Intake Visit Reasons: Annual exam Intake Note: Patient here for an annual physical exam Software Release Manager Required: No Accompanied by: Self / Same As Patient Allergies dicyclomine [Bentyl] Allergy (Intermediate, Verified 03/13/23 15:25) pruritus finasteride Allergy (Intermediate, Verified 03/13/23 15:25) rash hydrocodone [Vicodin] Allergy (Intermediate, Verified 03/13/23 15:25) rash lisinopril Allergy (Intermediate, Verified 03/13/23 15:25) myalgias morphine Allergy (Intermediate, Verified 03/13/23 15:25) unconscious Medication List - Last Reconciled 03/13/23 by Fang Seals MD acetaminophen 1,000 mg (2 x 500 mg) PO Q8H PRN azelastine 1 spray intranasal BID benzonatate 100 mg PO TID blood sugar diagnostic As directed blood-glucose meter As directed bupropion HCl 300 mg PO DAILY cetirizine 10 mg PO QAM [chair lift As directed] cholecalciferol (vitamin D3) 25 mcg PO DAILY 90 days clonazepam mg PO clotrimazole-betamethasone 1-0.05 % 1 appl topical BID 14 days docusate sodium 200 mg (2 x 100 mg) PO .qhs escitalopram oxalate 5 mg PO DAILY flash glucose scanning reader ([employer]Style Eduardo 14 Day [place]) As directed flash glucose sensor (FreeStyle Eduardo 14 Day Sensor kit) As directed fluticasone propionate 50 mcg/actuation 1 spray intranasal DAILY hydrochlorothiazide 25 mg PO DAILY 90 days hydrocortisone 2.5% (Proctozone-HC) 1 appl [place] BID PRN hydroxyzine HCl 25 mg PO TID PRN 30 days ibuprofen 600 mg PO Q6H PRN ketotifen fumarate 0.025%(0.035%) 1 drp ophthalmic (eye) PRN lancets (OneTouch Delica Lancets) As directed linaclotide (Linzess) 145 mcg PO DAILY linagliptin (Tradjenta) 5 mg PO DAILY metformin 1,000 mg PO BID methylcellulose (laxative) (Citrucel) 500 mg PO BID multivitamin 1 tab PO DAILY nystatin 1 appl topical QID omeprazole 20 mg PO DAILY 90 days pravastatin 20 mg PO BEDTIME 90 days terazosin 10 mg PO DAILY 90 days Tobacco use date assessed: 08/15/22 Dental Screening Dental Screen Date: 03/13/23 Did you have a dental visit in the last 12 months?: Yes Did you have a dental problem in the last 6 months where you did not have access to dental care?: No Was dental information given to patient?: Patient has dentist HPI HPI Comments History of Present Illness Details This is a 52-year-old male with mild recurrent major depression and diabetes mellitus type 2 that comes for his physical exam. Walks with a cane for gait stability due to right leg pain. A1c within goal. Depression stable with medications. Last diabetic eye exam was about 2 weeks ago. Last colonoscopy was 2020. [facility] Medical History (Updated 03/13/23 @ 15:40 by Fang Seals MD) Allergic rhinitis Chest pain Umbilical hernia Candidal intertrigo Transaminitis Lumbar degenerative disc disease PALOMA (generalized anxiety disorder) Mild recurrent major depression Oral lesion Cough Hiatal hernia Hemorrhoids BPH (benign prostatic hyperplasia) Depression with anxiety Chronic leg pain GERD (gastroesophageal reflux disease) Dyslipidemia Essential hypertension Diabetes mellitus Surgical History History of colonoscopy History of removal of cyst History of inguinal hernia repair History of lumbar fusion Family History Father CVD (cardiovascular disease) Hypertension Mother CVD (cardiovascular disease) Hypertension Diabetes Sister Breast cancer Brother Acute appendicitis Diabetes Hypertension Social History Household Members: Friend(s) Housing: Apartment Alcohol intake: never Patient Tobacco Use Status: Never used Tobacco e-Cigarette/Vaping Use: Never Used Second Hand Smoke Exposure: No service: No Current occupational status: disabled Cognitive needs: Yes Hearing needs: No Vision needs: No Questionnaire Thrive Questionnaire Date Thrive assessed: 08/15/22 PALOMA-7 AMB Questionnaire PALOMA-7 Date PALOMA - 7 assessed: 08/15/22 Source: Developed by Drs. Chirag Bass, Cat Wong, Sivakumar Melvin and colleagues, with an educational elidia from [employer]. Review of Systems Const All systems reviewed & are unremarkable except as noted in HPI and below Eyes Reports no additional complaints, Denies change in vision and Denies other visual disturbances Card Denies chest pain at rest, Denies chest pain with activity, Denies edema, Denies irregular heart rhythm, Denies claudication, Denies dyspnea, Denies dyspnea on exertion, Denies orthopnea, Denies paroxysmal nocturnal dyspnea and Denies slow heart rate Resp Denies cough, Denies dyspnea and Denies dyspnea on exertion GI Denies abdominal pain, Denies change in bowel habits, Denies excessive flatus, Denies nausea and Denies vomiting Denies urinary hesitancy, Denies urinary incontinence and Denies urinary urgency Musc Denies abnormal gait, Denies atrophy, Denies deformity and Denies limited range of motion Skin/Breast Denies bleeding lesions, Denies changing lesions and Denies rash Neuro Denies abnormal gait, Denies behavioral changes, Denies confusion and Denies lack of coordination Psych Denies behavioral changes and Denies confusion Physical exam (Primary Care) Vital Signs: Last Vital Signs BP 130/80 03/13/23 15:13 BMI result Body Mass Index 27.9 Tobacco/Smoking Status: Tobacco use Status Tobacco use date assessed 08/15/22 03/13/23 15:14 Patient Tobacco Use Status Never used Tobacco 03/13/23 15:14 e-Cigarette/Vaping Use Never Used 03/13/23 15:14 Thrive Assessment: Date of Thrive Assessment Date Thrive assessed 08/15/22 03/13/23 15:14 Const General: No confusion Orientation/consciousness: patient oriented x3 and No confusion HENNH Head: Yes normal to inspection, Yes normocephalic and Yes atraumatic Ears: external ears normal Eyes General: appearance normal, both eyes and all related structures Eyelids: Yes eyelids normal Conjunctivae: conjunctivae normal Neck Neck: Yes normal visual inspection and Yes supple Resp Effort & Inspection: normal respiratory effort Auscultation: clear to auscultation bilaterally Cardio Jugular venous distension: no JVD Rate: regular rate Rhythm: regular rhythm Heart sounds: S1 normal heart sound present and S2 normal heart sound present GI Inspection: Yes normal to inspection Palpation (GI): Soft to palpation and nontender Auscultation: normal bowel sounds Skin General skin exam: no rashes or lesions noted Neuro General: patient oriented x3, no focal motor deficits and No confusion Extrem General: Yes full ROM Psych Appearance: grossly normal Assessment and Plan Assessment & Plan (1) Physical exam: Code(s): Z00.00 - Encounter for general adult medical examination without abnormal findings Plan: Repeat in a year. (2) Mild recurrent major depression: Code(s): F33.0 - Major depressive disorder, recurrent, mild Plan: Continue escitalopram. (3) Diabetes mellitus: Comment: NIDDM Code(s): E11.9 - Type 2 diabetes mellitus without complications Qualifiers: Diabetes mellitus type: type 2 Diabetes mellitus long term care administrator insulin use: without group home use Diabetes mellitus complication status: without complication Qualified Code(s): E11.9 - Type 2 diabetes mellitus without complications Plan: Continue metformin. A1c goal is equal or less than 7%. Orders: Orders Lipid Panel Today E78.5 - Hyperlipidemia, unspecified Vitamin D 25-OH Total Today E55.9 - Vitamin D deficiency, unspecified Comprehensive [place]. Panel Fast Today J30.9 - Allergic rhinitis, unspecified Microalbumin, Random (w Creat) Today E11.9 - Type 2 diabetes mellitus without complications Coding Level of Care Code Est Pt Prev Care 40-64y(11914) Diagnoses Physical exam Z00.00 Mild recurrent major depression F33.0 Type 2 diabetes mellitus without complication, without long-term current use of insulin E11.9 Diabetes mellitus type: type 2 Diabetes mellitus long term care administrator insulin use: without group home use Diabetes mellitus complication status: without complication Time Spent (min) 32
[2023-03-13 15:13] VITALS: BP 130/80; BMI 27.9
== END 2023-03-13 15:41 | disposition home or self-care (01) ==
PROVIDERS: Visit Provider Internal Medicine
DX: Z00.00 Encounter for general adult medical examination without abnormal findings (principal); F33.0 Major depressive disorder, recurrent, mild; E11.9 Type 2 diabetes mellitus without complications
CPT/HCPCS: 99396

== ENCOUNTER 2023-07-18 10:51 | Outpatient (AMB) | payer OTHER, SELFPAY ==
[2023-07-18 11:03] VITALS: BP 130/82; BMI 28.7
--- NOTE | 2023-07-18 11:03 | MHC.PC.OV ---
Vital Signs 07/18/23 11:03 Height 5 ft 6 in Weight 178 lb BMI 28.7 BP 130/82 Blood Pressure Location Lt brachial Position Sitting Intake Visit Reasons: dm Intake Note: Patient here for a follow up DM Dehairing Machine Tender Required: No Accompanied by: Self / Same As Patient Allergies dicyclomine [Bentyl] Allergy (Intermediate, Verified 07/18/23 11:15) pruritus finasteride Allergy (Intermediate, Verified 07/18/23 11:15) rash hydrocodone [Vicodin] Allergy (Intermediate, Verified 07/18/23 11:15) rash lisinopril Allergy (Intermediate, Verified 07/18/23 11:15) myalgias morphine Allergy (Intermediate, Verified 07/18/23 11:15) unconscious Medication List - Last Reconciled 07/18/23 by Fang Seals MD acetaminophen 1,000 mg (2 x 500 mg) PO Q8H PRN azelastine 1 spray intranasal BID blood sugar diagnostic As directed blood-glucose meter As directed bupropion HCl 300 mg PO DAILY cetirizine 10 mg PO QAM [chair lift As directed] cholecalciferol (vitamin D3) 25 mcg PO DAILY 90 days clonazepam mg PO clotrimazole-betamethasone 1-0.05 % 1 appl topical BID 14 days docusate sodium 200 mg (2 x 100 mg) PO .qhs escitalopram oxalate 5 mg PO DAILY flash glucose scanning reader ([employer] Eduardo 14 Day [place]) As directed flash glucose sensor (FreeStyle Eduardo 14 Day Sensor kit) As directed fluticasone propionate 50 mcg/actuation 1 spray intranasal DAILY hydrochlorothiazide 25 mg PO DAILY 90 days hydrocortisone 2.5% (Proctozone-HC) 1 appl [place] BID PRN hydroxyzine HCl 25 mg PO TID PRN 30 days ibuprofen 600 mg PO Q6H PRN ketotifen fumarate 0.025%(0.035%) 1 drp ophthalmic (eye) PRN lancets (OneTouch Delica Lancets) As directed linaclotide (Linzess) 145 mcg PO DAILY linagliptin (Tradjenta) 5 mg PO DAILY loperamide 2 mg PO Q6H PRN 1 day metformin 1,000 mg PO BID methylcellulose (laxative) (Citrucel) 500 mg PO BID multivitamin 1 tab PO DAILY nystatin 1 appl topical QID omeprazole 20 mg PO DAILY 90 days pravastatin 20 mg PO BEDTIME 90 days terazosin 10 mg PO DAILY 90 days Tobacco use date assessed: 07/18/23 Dental Screening Dental Screen Date: 07/18/23 Did you have a dental visit in the last 12 months?: Yes Did you have a dental problem in the last 6 months where you did not have access to dental care?: No Was dental information given to patient?: Patient has dentist HPI HPI Comments History of Present Illness Details This is a 52-year-old male with diabetes mellitus type 2, hypertension, dyslipidemia, mild recurrent major depression and meningioma that comes today for follow-up on his conditions. Walks with a cane for gait stability due to chronic left leg pain. A1c slightly elevated and I will add Jardiance. He admits he does not take his blood glucose at home despite having a sense are. He said he does not know how to place a sensor in his body. I advised to do a nurse visit here so that we can help him out. Blood pressure stable. Last LDL was very close to goal. Depression stable with medications and this is follow by Psychiatry and counselor. Has a meningioma that is follow by Neurosurgery every 2 years. Denies any neurological deficit. Last diabetic eye exam was January 2023 showing no retinopathy. [facility] Medical History Allergic rhinitis Chest pain Umbilical hernia Candidal intertrigo Transaminitis Lumbar degenerative disc disease PALOMA (generalized anxiety disorder) Mild recurrent major depression Oral lesion Cough Hiatal hernia Hemorrhoids BPH (benign prostatic hyperplasia) Depression with anxiety Chronic leg pain GERD (gastroesophageal reflux disease) Dyslipidemia Essential hypertension Diabetes mellitus Surgical History History of colonoscopy History of removal of cyst History of inguinal hernia repair History of lumbar fusion Family History Father CVD (cardiovascular disease) Hypertension Mother CVD (cardiovascular disease) Hypertension Diabetes Sister Breast cancer Brother Acute appendicitis Diabetes Hypertension Social History Household Members: Friend(s) Housing: Apartment Alcohol intake: never Patient Tobacco Use Status: Never used Tobacco e-Cigarette/Vaping Use: Never Used Second Hand Smoke Exposure: No service: No Current occupational status: disabled Cognitive needs: Yes Hearing needs: No Vision needs: No Questionnaire PHQ-9 Over the last 2 weeks, how often have you been bothered by any of the following problems? 1. Little interest or pleasure in doing things: several days 2. Feeling down, depressed, or hopeless: several days 3. Trouble falling or staying asleep, or sleeping too much: more than half the days 4. Feeling tired or having little energy: more than half the days 5. Poor appetite or overeating: several days 6. Feeling bad about yourself - or that you are a failure or have let yourself or your family down: not at all 7. Trouble concentrating on things, such as reading the newspaper or watching television: not at all 8. Moving or speaking so slowly that other people could have noticed. Or the opposite - being so fidgety or restless that you have been moving around a lot more than usual: not at all 9. Thoughts that you would be better off or of hurting yourself in some way: not at all Total score: 7 Depression Screening Interpretation: Positive Depression Screening Follow-up: Existing condition, In treatment and Community Mental Health Worker F/U Depression Screening Done: Yes 54502 - PHQ-9 Billing: Yes Source: Developed by Drs. Chirag Bass, Cat Wong, Sivakumar Melvin and colleagues, with an educational elidia from [employer]. Thrive Questionnaire Date Thrive assessed: 07/18/23 I am a: Patient What is your living situation today?: I have a steady place to live Within the past 12 months, did the food you bought not last and you didn't have the money to get more?: Never true Within the past 12 months, did you worry whether your food would run out before you got money to buy more?: Never true Do you have trouble paying for medicines?: No Do you have trouble getting transportation to medical appointments?: No Do you have trouble paying your heating and electricity bill?: No Do you have trouble taking care of your child, family member or friend?: No Do you have trouble with day-to-day activities such as bathing, preparing meals, shopping, managing finances, etc.?: No Are you currently unemployed and looking for a job?: No Are you interested in more education?: No Please select the resources that you would like help with: None Currently or been in a relationship where the following occur: no concerns reported THRIVE Score: 0 AUDIT C Alcohol Use Questionnaire (AUDIT-C) 1. How often do you have a drink containing alcohol?: Never Total Score: 0 Score Reviewed/Action Taken: No PALOMA-7 AMB Questionnaire PALOMA-7 Date PALOMA - 7 assessed: 07/18/23 Feeling nervous, anxious, or on edge: 2 = More than half the days Not being able to stop or control worryin = Not at all Worrying too much about different things: 1 = Several days Trouble relaxin = Several days Being so restless that it is hard to sit still: 0 = Not at all Becoming easily annoyed or irritable: 1 = Several days Feeling afraid as if something awful might happen: 0 = Not at all Total PALOMA-7 score (0-4 normal; 5-9 mild; 10-14 moderate; 15-21 severe): 5 Source: Developed by Drs. Chirag Bass, Cat Wong, Sivakumar Melvin and colleagues, with an educational elidia from [employer]. PALOMA-7 Assessment Billing PALOMA-7 Assessment Tool: PALOMA-7 Assessment 46404 Review of Systems Const All systems reviewed & are unremarkable except as noted in HPI and below Eyes Reports no additional complaints, Denies change in vision and Denies other visual disturbances Card Denies chest pain at rest, Denies chest pain with activity, Denies edema, Denies irregular heart rhythm, Denies claudication, Denies dyspnea, Denies dyspnea on exertion, Denies orthopnea, Denies paroxysmal nocturnal dyspnea and Denies slow heart rate Resp Denies cough, Denies dyspnea and Denies dyspnea on exertion Physical exam (Primary Care) Vital Signs: Last Vital Signs BP 130/82 07/18/23 11:03 BMI result Body Mass Index 28.7 Tobacco/Smoking Status: Tobacco use Status Tobacco use date assessed 07/18/23 07/18/23 11:10 Patient Tobacco Use Status Never used Tobacco 07/18/23 11:10 e-Cigarette/Vaping Use Never Used 07/18/23 11:10 PHQ-9: PHQ-9 Score PHQ-9: Total score 7 07/18/23 11:10 Depression Screening Interpretation: Positive Depression Screening Follow-up: Existing condition, In treatment and Community Mental Health Worker F/U Thrive Assessment: Date of Thrive Assessment Date Thrive assessed 07/18/23 07/18/23 11:10 Currently or been in a relationship where the following occur: no concerns reported Const Limitations: ambulation with cane Resp Effort & Inspection: normal respiratory effort Auscultation: clear to auscultation bilaterally Cardio Jugular venous distension: no JVD Rate: regular rate Rhythm: regular rhythm Heart sounds: S1 normal heart sound present and S2 normal heart sound present Extrem General: Yes full ROM Psych Appearance: grossly normal Results AMB Hemoglobin A1c AMB Hemoglobin A1c 7.2 % Last Edit by LESVIA Craig on 07/18/23 11:12 Results Reviewed Results Reviewed: Laboratory Last Values Hgb A1c (Clinic) 7.2 % (4.0-6.0) H 07/18/23 11:10 Assessment and Plan Assessment & Plan (1) Diabetes mellitus: Comment: NIDDM Code(s): E11.9 - Type 2 diabetes mellitus without complications Qualifiers: Diabetes mellitus type: type 2 Diabetes mellitus half-way insulin use: without extermination supervisor use Diabetes mellitus complication status: without complication Qualified Code(s): E11.9 - Type 2 diabetes mellitus without complications Plan: Continue metformin and Tradjenta. Start Jardiance. A1c goal is equal or less than 7%. (2) Essential hypertension: Code(s): I10 - Essential (primary) hypertension Plan: Continue hydrochlorothiazide. Blood pressure goal is equal or less than 130/80. (3) Dyslipidemia: Code(s): E78.5 - Hyperlipidemia, unspecified Plan: Continue statins. LDL goal is less than 70. Start low-cholesterol diet. (4) Mild recurrent major depression: Code(s): F33.0 - Major depressive disorder, recurrent, mild Plan: Continue bupropion and escitalopram. Follow-up with psychiatry and counseling. (5) Meningioma: Comment: stable 4 mm intrahemispheric meningioma, followed by Dr. Joe every 2 years. Code(s): D32.9 - Benign neoplasm of meninges, unspecified Plan: Continue follow-up with neurosurgeon. Orders: Orders AMB Hemoglobin A1c Today E11.9 - Type 2 diabetes mellitus without complications Lipid Panel 9 Months E78.5 - Hyperlipidemia, unspecified Comprehensive [employer] Panel Fast 9 Months E11.9 - Type 2 diabetes mellitus without complications Microalbumin, Random (w Creat) 9 Months E11.9 - Type 2 diabetes mellitus without complications Vitamin D 25-OH Total 9 Months E55.9 - Vitamin D deficiency, unspecified Medications: New empagliflozin (Jardiance) 10 mg PO DAILY 90 days 90 tabs 1RF E11.9 - Type 2 diabetes mellitus without complications Coding Level of Care Code Est Pt Level 4 (63661) Diagnoses Type 2 diabetes mellitus without complication, without long-term current use of insulin E11.9 Diabetes mellitus type: type 2 Diabetes mellitus extermination supervisor insulin use: without half-way use Diabetes mellitus complication status: without complication Essential hypertension I10 Dyslipidemia E78.5 Mild recurrent major depression F33.0 Meningioma D32.9 Additional Codes PALOMA-7 Assessment Billing - PALOMA-7 Assessment Tool: PALOMA-7 Assessment [id number] ([id number]) Time Spent (min) 23
== END 2023-07-18 11:27 | disposition home or self-care (01) ==
PROVIDERS: PCP Internal Medicine; Visit Provider Internal Medicine
DX: E11.69 Type 2 diabetes mellitus with other specified complication (principal); F33.0 Major depressive disorder, recurrent, mild; D32.9 Benign neoplasm of meninges, unspecified; I10 Essential (primary) hypertension; E78.5 Hyperlipidemia, unspecified
CPT/HCPCS: 83036; 99214

== ENCOUNTER 2023-07-24 10:03 | Outpatient (AMB) | payer OTHER, SELFPAY ==
[2023-07-24 10:07] VITALS: BMI 28.7
--- NOTE | 2023-07-24 10:07 | A.OFFVIS_ITS ---
Intake VS Expanded 07/24/23 10:07 Height 5 ft 6 in Weight 178 lb 2.136 oz BMI 28.7 Intake Visit Reasons: DM/CONFIRMED Allergies dicyclomine [Bentyl] Allergy (Intermediate, Verified 07/18/23 11:15) pruritus finasteride Allergy (Intermediate, Verified 07/18/23 11:15) rash hydrocodone [Vicodin] Allergy (Intermediate, Verified 07/18/23 11:15) rash lisinopril Allergy (Intermediate, Verified 07/18/23 11:15) myalgias morphine Allergy (Intermediate, Verified 07/18/23 11:15) unconscious HPI Nutrition Presentation Details Pt presents for MNT f/u for T2DM. Pt reports interest in resuming diet management for his DM . Pt reports currently not monitoring blood glucose YRH-[id number]-Vf.Jeor Equation Height 5 ft 6 in Weight 178 lb Resting Metabolic Rate 1593.66 Calculated Activity Level Sedentary Calories Needed to Maintain Weight 1912.39 Most Recent Diabetes Results: Microalb/Creat Ratio 18.7 ug/mg cr (<30) 12/20/22 Cholesterol 159 mg/dL (<200) 12/20/22 HDL Cholesterol 48 mg/dL (>40) 12/20/22 Triglycerides 190 mg/dL (<150) H 12/20/22 Creatinine 0.95 mg/dL (0.5-1.4) 12/20/22 Blood Urea Nitrogen 27 mg/dL (9-16) H 12/20/22 Sodium 142 mmol/L (135-145) 12/20/22 Potassium 3.7 mmol/L (3.3-5.1) 12/20/22 Chloride 103 mmol/L (96-108) 12/20/22 Carbon Dioxide 28 mmol/L (22-29) 12/20/22 Calcium 10.2 mg/dL (8.4-10.2) 12/20/22 AST 24 U/L (5-37) 12/20/22 ALT 33 U/L (0-40) 12/20/22 Total Protein 8.0 g/dL (6.5-8.0) 12/20/22 Albumin 4.7 g/dL (3.5-5.0) 12/20/22 [facility] Medical History Allergic rhinitis Chest pain Umbilical hernia Candidal intertrigo Transaminitis Lumbar degenerative disc disease PALOMA (generalized anxiety disorder) Mild recurrent major depression Oral lesion Cough Hiatal hernia Hemorrhoids BPH (benign prostatic hyperplasia) Depression with anxiety Chronic leg pain GERD (gastroesophageal reflux disease) Dyslipidemia Essential hypertension Diabetes mellitus Surgical History History of colonoscopy History of removal of cyst History of inguinal hernia repair History of lumbar fusion Family History Father CVD (cardiovascular disease) Hypertension Mother CVD (cardiovascular disease) Hypertension Diabetes Sister Breast cancer Brother Acute appendicitis Diabetes Hypertension Social History Household Members: Friend(s) Housing: Apartment Alcohol intake: never Patient Tobacco Use Status: Never used Tobacco e-Cigarette/Vaping Use: Never Used Second Hand Smoke Exposure: No service: No Current occupational status: disabled Cognitive needs: Yes Hearing needs: No Vision needs: No Assessment & Plan Assessment & Plan (1) Diabetes mellitus: Comment: NIDDM Code(s): E11.9 - Type 2 diabetes mellitus without complications Qualifiers: Diabetes mellitus type: type 2 Diabetes mellitus half-way insulin use: without remote computer terminal operator use Diabetes mellitus complication status: without complication Qualified Code(s): E11.9 - Type 2 diabetes mellitus without complications Plan: Wt: 81 Kg ( 07/2023 ) Est kcal needs as per MSJ: 1900 (40% carb, 30% protein/fat) Est fluid needs as per 30 ml/d: 2400 Est prot per day as per 1 g/kg bw: 81 Recommend fiber intake : 8-10 g per day and gradually increase to 25-28 g per day for women and 35-38 g for men or as tolerated Recommend sodium intake per day : less than 2000 mg Educated patient on: ( R = reviewed V = verbalizes understanding N/R = needs review N/A = not applicable * Food sources of carbohydrate, adequate serving sizes and its role in various health conditions: NR * Differences between complex carbohydrates a simple carbohydrates, role of fiber in diet: NR * Lean protein sources of foods: R V * Differences between types of fats and role in diet (mono on saturated fat fatty acids, saturated fatty acids, trans fats): R basic * Food sources of sodium in salt and healthy modifications for heart health in kidney health: N/R * Vitamins and minerals: N/R * Healthy plate method concept: R * Physical activity: Benefits a precaution: N/R * Hypoglycemia protocol (rule of 15): R * Dietary prevention of Hyperglycemia: R Patient Instructions: Monitor your blood sugar, fasting and 2 hours after eating for self assessment Follow healthy plate method at dinner (1/2 plate with mixed vegetable , spinach, salads, asparagus ) Have a fruit in place of pastries Coding Level of Care Code Nutr Indiv Subseq (77548) Diagnoses Type 2 diabetes mellitus without complication, without long-term current use of insulin E11.9 Diabetes mellitus type: type 2 Diabetes mellitus remote computer terminal operator insulin use: without remote computer terminal operator use Diabetes mellitus complication status: without complication Time Spent (min) 30
[2023-08-01 09:02] VITALS: BMI 28.7
== END 2023-07-24 10:29 | disposition home or self-care (01) ==
PROVIDERS: PCP Internal Medicine; Visit Provider Dietitian, Registered
DX: E11.9 Type 2 diabetes mellitus without complications (principal)

== ENCOUNTER → 2023-07-24 10:03 | Outpatient (BNVA) | payer OTHER, SELFPAY | PROVIDERS: PCP Internal Medicine; Visit Provider Dietitian, Registered | DX: E11.9 Type 2 diabetes mellitus without complications (principal); Z71.3 Dietary counseling and surveillance | CPT/HCPCS: 97803 ==

== ENCOUNTER 2023-11-30 09:47 | Outpatient (REF) | payer OTHER, SELFPAY ==
[2023-11-30 11:13] LABS: Albumin Level 4.5 g/dL (3.5-5.0); Alkaline Phosphatase 70 U/L (39-117); Anion Gap 9 (12-20); Aspartate Amino Transferase 23 U/L (5-37); Bilirubin Total 0.6 mg/dL (0.0-1.0); Blood Urea Nitrogen 17 mg/dL (9-16); Carbon Dioxide 29 mmol/L (22-29); Chloride 107 mmol/L (96-108); Cholesterol 195 mg/dL (<200); Estimated Glomerular Filt Rate > 60; Glucose Fasting 160 mg/dL (60-99); HDL Cholesterol 50 mg/dL (>40); LDL Cholesterol Calculated 116 mg/dL (<100); Potassium 4.3 mmol/L (3.3-5.1); Sodium 141 mmol/L (135-145); Total Protein 7.5 g/dL (6.5-8.0); Triglycerides 147 mg/dL (<150)
[2023-11-30 11:19] LABS: Alanine Aminotransferase 29 U/L (0-40)
[2023-11-30 11:22] LABS: PSA,Total (Free>4and<10) 0.67 ng/mL (0.00-4.00)
[2023-11-30 11:32] LABS: Vitamin D 25-OH Total 33.3 ng/mL (>30)
[2023-11-30 11:59] LABS: Appearance Urine Clear; Color Urine Yellow; Glucose Urine UA >=1000 mg/dL (Negative); Leukocyte Esterase Urine Negative (Negative); Nitrite Urine Negative (Negative); PH 5.5 (5.0-9.0); Specific Gravity - Urine >= 1.030 (1.005-1.025); UMIC TRIGGER UACC YES; Urine Blood Negative (Negative); Urine Ketones Trace mg/dL (Negative); Urine Protein 30 (1+) mg/dL (Neg-Trace)
[2023-11-30 12:02] LABS: Bacteria Urine None Seen (None Seen); Hyaline Casts Urine 0-2 /LPF (0-2); RBC Urine 0-2 /HPF (0-2); Squamous Epithelial Cell Urine 0-2 /HPF (0-2); WBC Urine 0-5 /HPF (0-5)
[2023-11-30 12:21] LABS: Creatinine Urine 177.78 mg/dL; Microalbum/Creatinine Ratio Ur 55.6 ug/mg cr (<30)
== END 2023-11-30 09:48 | disposition home or self-care (01) ==
LOC: HO.LAB 09:47
PROVIDERS: PCP Internal Medicine; Visit Provider Internal Medicine
DX: J30.9 Allergic rhinitis, unspecified (principal); E78.5 Hyperlipidemia, unspecified; E11.9 Type 2 diabetes mellitus without complications; Z12.5 Encounter for screening for malignant neoplasm of prostate; E55.9 Vitamin D deficiency, unspecified
CPT/HCPCS: 36415; 80053; 80061; 81001; 82043; 82306; 82570; 84153

== ENCOUNTER 2023-12-13 10:57 | Outpatient (AMB) | payer OTHER, SELFPAY ==
--- NOTE | 2023-12-13 10:58 | AM.OFFWIN_ITS ---
Intake Vital Signs 12/13/23 10:59 Height 5 ft 6 in Weight 172 lb BMI 27.8 BP 138/90 H Blood Pressure Location Lt brachial Position Sitting Pulse 62 Pulse Source Pulse Oximeter Pulse Oximetry (%) 98 Oxygen Delivery Method Room Air Intake Visit Reasons: EP- RT thumb infection Intake Note: Patient here for possible bee sting on right hand thumb about 3 days ago and is now swollen, red and discolored. Patient Tobacco Use Status: Never used Tobacco Allergies dicyclomine [Bentyl] Allergy (Intermediate, Verified 12/13/23 11:01) pruritus finasteride Allergy (Intermediate, Verified 12/13/23 11:01) rash hydrocodone [Vicodin] Allergy (Intermediate, Verified 12/13/23 11:01) rash lisinopril Allergy (Intermediate, Verified 12/13/23 11:01) myalgias morphine Allergy (Intermediate, Verified 12/13/23 11:01) unconscious Do you need a note to return to daycare/school/sports/work: No HPI EP- RT thumb infection HPI Details This note is constructed using voice recognition software. While every effort has been made to ensure accuracy, hand bender errors may have been included. The patient is a 52 year old diabetic male who presents to the clinic today with concern for infection to his right thumb after sustaining a bee bite 3 days ago. He denies fever, chills reports pain to the area that seems to be getting slightly worse, with an area that seems to be getting more red. He has not done anything to try to fix this. He has no known bee allergy. [facility] Medical History Allergic rhinitis Chest pain Umbilical hernia Candidal intertrigo Transaminitis Lumbar degenerative disc disease PALOMA (generalized anxiety disorder) Mild recurrent major depression Oral lesion Cough Hiatal hernia Hemorrhoids BPH (benign prostatic hyperplasia) Depression with anxiety Chronic leg pain GERD (gastroesophageal reflux disease) Dyslipidemia Essential hypertension Diabetes mellitus Surgical History History of colonoscopy History of removal of cyst History of inguinal hernia repair History of lumbar fusion Family History Father CVD (cardiovascular disease) Hypertension Mother CVD (cardiovascular disease) Hypertension Diabetes Sister Breast cancer Brother Acute appendicitis Diabetes Hypertension Social History Household Members: Friend(s) Housing: Apartment Alcohol intake: never Patient Tobacco Use Status: Never used Tobacco e-Cigarette/Vaping Use: Never Used Second Hand Smoke Exposure: No service: No Current occupational status: disabled Cognitive needs: Yes Hearing needs: No Vision needs: No Review of Systems Const All systems reviewed & are unremarkable except as noted in HPI and below Physical Exam Vital Signs: Last Vital Signs Pulse 62 12/13/23 10:59 BP 138/90 H 12/13/23 10:59 Pulse Ox 98 12/13/23 10:59 Oxygen Delivery Method Room Air 12/13/23 10:59 BMI result Body Mass Index 27.8 Const General: cooperative, healthy appearing, comfortable, no acute distress and alert Orientation/consciousness: patient oriented x3 Limitations: no limitations Resp Effort & Inspection: normal respiratory effort and able to speak in complete sentences Auscultation: clear to auscultation bilaterally Cardio Jugular venous distension: no JVD Palpation: normal PMI Rate: regular rate Heart sounds: S1 normal heart sound present, S2 normal heart sound present, no click, no gallops, no murmurs and no rubs Skin Other: Erythema and warmth to right thumb lateral aspect near nail but not actually touching the cuticle. No obvious cystic structure, areas tender to palpation. General skin exam: elasticity normal and turgor normal Neuro General: patient oriented x3 Psych Appearance: grossly normal Mental Status: mental status grossly normal Speech and movement: Normal speech and movement present Affect: normal affect Assessment & Plan Assessment & Plan (1) Cellulitis: Code(s): L03.90 - Cellulitis, unspecified Qualifiers: Site of cellulitis: extremity Site of cellulitis of extremity: finger Laterality: right Qualified Code(s): L03.011 - Cellulitis of right finger Plan: No obvious site for a paronychial infection for drainage. Given physical examination findings, we did elect to treat with antimicrobials, advised patient to take until completed dose. Advised patient to follow up with primary with worsening symptoms or failure to resolve. Plan See above for full details and plan. Medications: New cephalexin 500 mg PO BID 7 days 14 caps 0RF Coding Level of Care Code Est Pt Level 3 (73135) Diagnoses Cellulitis of finger of right hand L03.011 Site of cellulitis: extremity Site of cellulitis of extremity: finger Laterality: right
[2023-12-13 10:59] VITALS: BP 138/90; PULSE 62; O2SAT 98; BMI 27.8
== END 2023-12-13 11:31 | disposition home or self-care (01) ==
PROVIDERS: PCP Internal Medicine; Visit Provider Registered Nurse
DX: L03.011 Cellulitis of right finger (principal)
CPT/HCPCS: 99213

== ENCOUNTER 2023-12-20 13:01 | Outpatient (AMB) | payer OTHER, SELFPAY ==
--- NOTE | 2023-12-20 13:12 | AM.OFFWIN_ITS ---
Intake Vital Signs 12/20/23 13:17 Height 5 ft 6 in Weight 172 lb BMI 27.8 BP 130/86 Blood Pressure Location Rt brachial Position Sitting Pulse 78 Pulse Source Pulse Oximeter Pulse Oximetry (%) 97 Oxygen Delivery Method Room Air Intake Visit Reasons: EP- RT finger infection follow up Intake Note: Pt presents to the office today for a follow up right finger infection. Pt states he finished his antibiotics and popped the blister on his thumb. Pt states there was white and yellow discharge that came out. Pt wants to make sure his infection is better and doesn't need another dose of antibiotics. Pt states his finger is also itchy. Patient Tobacco Use Status: Never used Tobacco Allergies dicyclomine [Bentyl] Allergy (Intermediate, Verified 12/20/23 13:18) pruritus finasteride Allergy (Intermediate, Verified 12/20/23 13:18) rash hydrocodone [Vicodin] Allergy (Intermediate, Verified 12/20/23 13:18) rash lisinopril Allergy (Intermediate, Verified 12/20/23 13:18) myalgias morphine Allergy (Intermediate, Verified 12/20/23 13:18) unconscious HPI HPI Comments History of Present Illness Details Patient is a 53-year-old male who is here for a follow-up appointment regarding his finger infection. He was evaluated at this clinic on December 12 told he had an infection of his finger and given Keflex. He took the antibiotic in fall and finished yesterday. He states that he was able to pop it the day after he was evaluated and drained it on his own. He states a lot of yellow fluid came out and it felt a lot better but he continued to take the antibiotic. He states it is a little bit itchy and a skin is very dry but it does not drain anymore fluid. [facility] Medical History Allergic rhinitis Chest pain Umbilical hernia Candidal intertrigo Transaminitis Lumbar degenerative disc disease PALOMA (generalized anxiety disorder) Mild recurrent major depression Oral lesion Cough Hiatal hernia Hemorrhoids BPH (benign prostatic hyperplasia) Depression with anxiety Chronic leg pain GERD (gastroesophageal reflux disease) Dyslipidemia Essential hypertension Diabetes mellitus Surgical History History of colonoscopy History of removal of cyst History of inguinal hernia repair History of lumbar fusion Family History Father CVD (cardiovascular disease) Hypertension Mother CVD (cardiovascular disease) Hypertension Diabetes Sister Breast cancer Brother Acute appendicitis Diabetes Hypertension Social History Household Members: Friend(s) Housing: Apartment Alcohol intake: never Patient Tobacco Use Status: Never used Tobacco e-Cigarette/Vaping Use: Never Used Second Hand Smoke Exposure: No service: No Current occupational status: disabled Cognitive needs: Yes Hearing needs: No Vision needs: No Review of Systems Const All systems reviewed & are unremarkable except as noted in HPI and below Physical Exam Vital Signs: Last Vital Signs Pulse 78 12/20/23 13:17 BP 130/86 12/20/23 13:17 Pulse Ox 97 12/20/23 13:17 Oxygen Delivery Method Room Air 12/20/23 13:17 BMI result Body Mass Index 27.8 Const General: cooperative, healthy appearing, comfortable, no acute distress and well developed Orientation/consciousness: patient oriented x3 Limitations: no limitations HEENT Head: Yes normal to inspection Ears: hearing grossly normal bilaterally General nose exam: Normal external nose present Face and sinus: Yes normal facial exam Eyes General: appearance normal, both eyes and all related structures Neck Neck: Yes normal visual inspection and Yes full ROM Resp Effort & Inspection: normal respiratory effort and able to speak in complete sentences Skin Other: Right thumb, normal-appearing except for some dry skin and a little bit of ecchymosis, nail is clear. No warmth, no erythema and no purulence noted Neuro General: patient oriented x3 Extrem General: Yes normal to inspection Assessment & Plan Assessment & Plan (1) Paronychia of finger: Code(s): L03.019 - Cellulitis of unspecified finger Qualifiers: Laterality: right Qualified Code(s): L03.011 - Cellulitis of right finger Plan: Infection appears to be completely resolved. Recommended he could use Aquaphor for the skin to completely heal or bacitracin Plan See above Coding Level of Care Code Est Pt Level 2 (51609) Diagnoses Paronychia of finger of right hand L03.011 Laterality: right
[2023-12-20 13:17] VITALS: BP 130/86; PULSE 78; O2SAT 97; BMI 27.8
== END 2023-12-20 13:42 | disposition home or self-care (01) ==
PROVIDERS: PCP Internal Medicine; Visit Provider Physician Assistant
DX: L03.011 Cellulitis of right finger (principal)
CPT/HCPCS: 99212

== ENCOUNTER 2024-03-11 09:39 | Outpatient (AMB) | payer OTHER, SELFPAY ==
--- NOTE | 2024-03-11 10:16 | MHC.OFFWIV ---
Intake Vital Signs 03/11/24 10:17 Weight 174 lb BP 130/90 H Blood Pressure Location Rt brachial Position Sitting Pulse 91 Pulse Source Pulse Oximeter Temp 97.7 F Temp Source Oral Pulse Oximetry (%) 98 Oxygen Delivery Method Room Air Intake Visit Reasons: EP-cough, nausea, throat itching, nose congestion Intake Note: Patient here for cough, nasal congestion,nausea, dizziness and throat pain when coughing that has been present since yesterday Patient Tobacco Use Status: Never used Tobacco Allergies dicyclomine [Bentyl] Allergy (Intermediate, Verified 03/11/24 10:18) pruritus finasteride Allergy (Intermediate, Verified 03/11/24 10:18) rash hydrocodone [Vicodin] Allergy (Intermediate, Verified 03/11/24 10:18) rash lisinopril Allergy (Intermediate, Verified 03/11/24 10:18) myalgias morphine Allergy (Intermediate, Verified 03/11/24 10:18) unconscious Do you need a note to return to daycare/school/sports/work: No HPI EP-cough, nausea, throat itching, nose congestion HPI Details This note is constructed using voice recognition software. While every effort has been made to ensure accuracy, transcription coordinator errors may have been included. The patient is a 53 year old male who presents to the clinic today with cough, throat itchy, nasal congestion since yesterday. He reports that his children and girlfriend are all sick with an upper respiratory infection, and they were evaluated and tested for COVID and flu and were negative. He denies fever, chills, shortness of breath. He reports that the cough is ?bothering him and making it difficult to sleep. He is a nonsmoker. He does report that he gets upper respiratory infections which dual lead to bronchitis every year, and has a nebulizer at home. He requests refill of albuterol nebulizer solution as well as his chronically used Flonase nasal spray. [facility] Medical History Allergic rhinitis Chest pain Umbilical hernia Candidal intertrigo Transaminitis Lumbar degenerative disc disease PALOMA (generalized anxiety disorder) Mild recurrent major depression Oral lesion Cough Hiatal hernia Hemorrhoids BPH (benign prostatic hyperplasia) Depression with anxiety Chronic leg pain GERD (gastroesophageal reflux disease) Dyslipidemia Essential hypertension Diabetes mellitus Surgical History History of colonoscopy History of removal of cyst History of inguinal hernia repair History of lumbar fusion Family History Father CVD (cardiovascular disease) Hypertension Mother CVD (cardiovascular disease) Hypertension Diabetes Sister Breast cancer Brother Acute appendicitis Diabetes Hypertension Social History Household Members: Friend(s) Housing: Apartment Alcohol intake: never Patient Tobacco Use Status: Never used Tobacco e-Cigarette/Vaping Use: Never Used Second Hand Smoke Exposure: No service: No Current occupational status: disabled Cognitive needs: Yes Hearing needs: No Vision needs: No Review of Systems Const All systems reviewed & are unremarkable except as noted in HPI and below Physical Exam Vital Signs: Last Vital Signs Temp 97.7 F 03/11/24 10:17 Pulse 91 03/11/24 10:17 BP 130/90 H 03/11/24 10:17 Pulse Ox 98 03/11/24 10:17 Oxygen Delivery Method Room Air 03/11/24 10:17 Const General: cooperative, healthy appearing, comfortable and no acute distress Orientation/consciousness: patient oriented x3 Limitations: no limitations HEENT Head: Yes normal to inspection Ears: hearing grossly normal bilaterally, external ears normal and TM's normal bilaterally General nose exam: Normal external nose present, Normal nares present and No nasal discharge present Face and sinus: Yes normal facial exam and Yes sinuses nontender Mouth: Normal oral and palatal mucosa present and moist mucous membranes Throat: Yes tonsils normal, Yes uvula midline and Yes posterior oropharynx abnormal (Erythema) Eyes General: appearance normal, both eyes and all related structures Neck Neck: Yes normal visual inspection Resp Effort & Inspection: normal respiratory effort, able to speak in complete sentences, Actively coughing, no respiratory distress, not tachypneic, no tripod positioning and no use of accessory muscles Auscultation: clear to auscultation bilaterally Cardio Jugular venous distension: no JVD Rate: regular rate Rhythm: regular rhythm Heart sounds: S1 normal heart sound present, S2 normal heart sound present, no click, no gallops, no murmurs and no rubs Skin General skin exam: no rashes or lesions noted, elasticity normal and turgor normal Neuro General: patient oriented x3 Extrem General: Yes normal to inspection and Yes no clubbing, cyanosis or edema Assessment & Plan Assessment & Plan (1) Upper respiratory tract infection: Code(s): J06.9 - Acute upper respiratory infection, unspecified Qualifiers: URI type: unspecified URI Qualified Code(s): J06.9 - Acute upper respiratory infection, unspecified Plan: Viral swab obtained to rule out Covid based on symptoms. Advised mask wearing while symptomatic and quarantine per current CDC guidelines. Reviewed at home support methods including hydration, humidification, vix vapor rub, sinus rinse. Discussed treatment with antiviral therapy for covid with paxlovid in for flu with Tamiflu including appropriate use and side effects, and need to start medication within 5 day of symptom onset, preferably within 48 hours of symptom onset. Patient wishes to proceed with treatment if positive. Refill provided today of albuterol nebulizer solution as well as his Flonase nasal spray. Prescription provided for benzonatate for cough suppressant. Advised follow up with worsening symptoms such as dyspnea at rest, which would require emergent evaluation. Plan See above for full details and plan. Orders: Orders SARS-CoV2/FLU/RSV Today J06.9 - Acute upper respiratory infection, unspecified Medications: New benzonatate 100 mg PO TID 5 days PRN 15 caps 0RF Cough albuterol sulfate 2.5 mg (3 mL) inhalation QID PRN 75 mL 0RF shortness of breath or wheezing Refilled fluticasone propionate 50 mcg/actuation 1 spray intranasal DAILY 16 grams 3RF Coding Level of Care Code Est Pt Level 3 (57180) Diagnoses Upper respiratory tract infection, unspecified type J06.9 URI type: unspecified URI
[2024-03-11 10:17] VITALS: BP 130/90; PULSE 91; TEMP 36.5; O2SAT 98
== END 2024-03-11 11:21 | disposition home or self-care (01) ==
PROVIDERS: PCP Internal Medicine; Visit Provider Registered Nurse
DX: J06.9 Acute upper respiratory infection, unspecified (principal)

== ENCOUNTER 2024-03-11 09:39 | Outpatient (REF) | payer OTHER, SELFPAY ==
[2024-03-11 15:05] LABS: Influenza A PCR NEGATIVE (Negative); Influenza B PCR NEGATIVE (Negative); Resp Syncy Virus RNA Qual PCR NEGATIVE (Negative); SARS COV2 PCR INHOUSE NEGATIVE (Negative)
== END 2024-03-11 09:40 | disposition home or self-care (01) ==
LOC: HO.LNP 09:39
PROVIDERS: PCP Internal Medicine; Visit Provider Registered Nurse
DX: J06.9 Acute upper respiratory infection, unspecified (principal)
CPT/HCPCS: 0241U; 99212

== ENCOUNTER 2024-05-16 12:41 | Outpatient (AMB) | payer OTHER, SELFPAY ==
[2024-05-16 12:45] VITALS: BP 130/70; BMI 25.8
--- NOTE | 2024-05-16 12:45 | MHC.PC.OV ---
Vital Signs 05/16/24 12:45 Height 5 ft 6 in Weight 160 lb BMI 25.8 BP 130/70 Blood Pressure Location Lt brachial Position Sitting Intake Visit Reasons: Annual Exam Intake Note: Patient here for a physical exam Shirt Sorter Required: Yes Shirt Sorter Language: Branch Service Representative Name: Fang Seals MD Information Interpreted: non-clinical & clinical Accompanied by: Self / Same As Patient Allergies dicyclomine [Bentyl] Allergy (Intermediate, Verified 05/16/24 12:53) pruritus finasteride Allergy (Intermediate, Verified 05/16/24 12:53) rash hydrocodone [Vicodin] Allergy (Intermediate, Verified 05/16/24 12:53) rash lisinopril Allergy (Intermediate, Verified 05/16/24 12:53) myalgias morphine Allergy (Intermediate, Verified 05/16/24 12:53) unconscious Medication List - Last Reconciled 05/16/24 by Fang Seals MD acetaminophen 1,000 mg (2 x 500 mg) PO Q8H PRN albuterol sulfate 2.5 mg (3 mL) inhalation QID PRN atorvastatin 40 mg PO BEDTIME 90 days azelastine 1 spray intranasal BID benzonatate 100 mg PO TID PRN 5 days blood sugar diagnostic As directed blood-glucose meter As directed bupropion HCl XL 300 mg PO DAILY cetirizine 10 mg PO QAM [chair lift As directed] cholecalciferol (vitamin D3) 25 mcg PO DAILY 90 days clonazepam mg PO clotrimazole-betamethasone 1-0.05 % 1 appl topical BID 14 days docusate sodium 200 mg (2 x 100 mg) PO .qhs empagliflozin (Jardiance) 10 mg PO DAILY 90 days escitalopram oxalate 5 mg PO DAILY flash glucose scanning reader (FreeStyle Eduardo 14 Day Kinsman) As directed flash glucose sensor (FreeStyle Eduardo 14 Day Sensor kit) As directed fluticasone propionate 50 mcg/actuation 1 spray intranasal DAILY hydrochlorothiazide 25 mg PO DAILY 90 days hydrocortisone 2.5% (Proctozone-HC) 1 appl [place] BID PRN hydroxyzine HCl 25 mg PO TID PRN 30 days ibuprofen 600 mg PO Q6H PRN ketotifen fumarate 0.025%(0.035%) 1 drp ophthalmic (eye) PRN lancets (OneTouch Delica Lancets) As directed linaclotide (Linzess) 145 mcg PO DAILY linagliptin (Tradjenta) 5 mg PO DAILY loperamide 2 mg PO Q6H PRN 1 day metformin 1,000 mg PO BID methylcellulose (laxative) (Citrucel) 500 mg PO BID multivitamin 1 tab PO DAILY nystatin 1 appl topical QID omeprazole 20 mg PO DAILY 90 days terazosin 10 mg PO DAILY 90 days Tobacco use date assessed: 05/16/24 Dental Screening Dental Screen Date: 05/16/24 Did you have a dental visit in the last 12 months?: Yes Did you have a dental problem in the last 6 months where you did not have access to dental care?: No Was dental information given to patient?: Patient has dentist HPI HPI Comments History of Present Illness Details The patient is a 53-year-old male presenting with a wellness visit and vaccinations. He has a history of lumbar fusion, which was conducted previously. The patient has a known diagnosis of depression, for which he is on 300 mg Bupropion. He is also under psychiatric and therapeutic care for this condition, which appears to be ongoing. He has a history of hyperlipidemia, managed with atorvastatin 40 mg. The patient reports discomfort when standing for prolonged periods exceeding 15 to 20 minutes and difficulty lifting items heavier than a gallon of milk, due to a previous lumbar surgery and inguinal hernia. He is under medical management for GERD with omeprazole. The patient has known drug allergies to Ventolin, morphine, hydrocodone-acetaminophen (Vicodin), and lisinopril, which should be avoided. He is current with his colon cancer screening, with a colonoscopy performed in 2020, showing polyps which were excised. Additionally, he requires pneumococcal vaccination due to receiving the previous dose five years ago at age 48. The patient is compliant with his medication regimen and has no reported issues with alcohol or tobacco usage. Mild major depression and anxiety follow by Psychiatry. Meningioma follow by Neurosurgery every 2 years. - Pneumococcal vaccination due this year, as the previous dose was administered five years ago. - Follow-up colonoscopy conducted in 2020; polyps were excised. - Laboratory tests needed for atorvastatin management of cholesterol. - Current medications include Tylenol, atorvastatin for hyperlipidemia, bupropion for depression, metformin, ibuprofen, multivitamins, omeprazole for GERD, and terazosin. [facility] Medical History Allergic rhinitis Chest pain Umbilical hernia Candidal intertrigo Transaminitis Lumbar degenerative disc disease APLOMA (generalized anxiety disorder) Mild recurrent major depression Oral lesion Cough Hiatal hernia Hemorrhoids BPH (benign prostatic hyperplasia) Depression with anxiety Chronic leg pain GERD (gastroesophageal reflux disease) Dyslipidemia Essential hypertension Diabetes mellitus Surgical History History of colonoscopy History of removal of cyst History of inguinal hernia repair History of lumbar fusion Family History Father CVD (cardiovascular disease) Hypertension Mother CVD (cardiovascular disease) Hypertension Diabetes Sister Breast cancer Brother Acute appendicitis Diabetes Hypertension Social History Household Members: Friend(s) Housing: Apartment Alcohol intake: never Patient Tobacco Use Status: Never used Tobacco e-Cigarette/Vaping Use: Never Used Second Hand Smoke Exposure: No service: No Current occupational status: disabled Cognitive needs: Yes Hearing needs: No Vision needs: No Questionnaire PHQ-9 Over the last 2 weeks, how often have you been bothered by any of the following problems? 1. Little interest or pleasure in doing things: several days 2. Feeling down, depressed, or hopeless: several days 3. Trouble falling or staying asleep, or sleeping too much: several days 4. Feeling tired or having little energy: nearly every day 5. Poor appetite or overeating: nearly every day 6. Feeling bad about yourself - or that you are a failure or have let yourself or your family down: several days 7. Trouble concentrating on things, such as reading the newspaper or watching television: several days 8. Moving or speaking so slowly that other people could have noticed. Or the opposite - being so fidgety or restless that you have been moving around a lot more than usual: several days 9. Thoughts that you would be better off or of hurting yourself in some way: not at all Total score: 12 Depression Screening Interpretation: Positive Depression Screening Follow-up: Existing condition, In treatment, Community Mental Health Worker F/U and Follow-up Visit Requested Depression Screening Done: Yes 25963 - PHQ-9 Billing: Yes Source: Developed by Drs. Chirag Bass, Sivakumar Owens and colleagues, with an educational elidia from [employer]. Thrive Questionnaire Date Thrive assessed: 05/16/24 I am a: Patient What is your living situation today?: I choose not to answer this question Within the past 12 months, did the food you bought not last and you didn't have the money to get more?: Sometimes True Within the past 12 months, did you worry whether your food would run out before you got money to buy more?: Sometimes True Do you have trouble paying for medicines?: No Do you have trouble getting transportation to medical appointments?: No Do you have trouble paying your heating and electricity bill?: I choose not to answer this question Do you have trouble taking care of your child, family member or friend?: I choose not to answer this question Do you have trouble with day-to-day activities such as bathing, preparing meals, shopping, managing finances, etc.?: Yes Are you currently unemployed and looking for a job?: Yes Are you interested in more education?: No Please select the resources that you would like help with: Food Currently or been in a relationship where the following occur: I choose not to answer THRIVE Score: 2 AUDIT C Alcohol Use Questionnaire (AUDIT-C) 1. How often do you have a drink containing alcohol?: Never Total Score: 0 Score Reviewed/Action Taken: No PALOMA-7 AMB Questionnaire PALOMA-7 Date PALOMA - 7 assessed: 05/16/24 Feeling nervous, anxious, or on edge: 3 = Nearly every day Not being able to stop or control worryin = Nearly every day Worrying too much about different things: 3 = Nearly every day Trouble relaxin = Nearly every day Being so restless that it is hard to sit still: 2 = More than half the days Becoming easily annoyed or irritable: 3 = Nearly every day Feeling afraid as if something awful might happen: 3 = Nearly every day Total PALOMA-7 score (0-4 normal; 5-9 mild; 10-14 moderate; 15-21 severe): 20 Source: Developed by Drs. Chirag Bass, Sivakumar Owens and colleagues, with an educational elidia from [employer]. PALOMA-7 Assessment Billing PALOMA-7 Assessment Tool: PALOMA-7 Assessment 02813 Review of Systems Const All systems reviewed & are unremarkable except as noted in HPI and below Card Denies chest pain at rest, Denies chest pain with activity, Denies edema, Denies irregular heart rhythm, Denies claudication, Denies dyspnea, Denies dyspnea on exertion, Denies orthopnea, Denies paroxysmal nocturnal dyspnea and Denies slow heart rate Resp Denies cough, Denies dyspnea and Denies dyspnea on exertion GI Denies abdominal pain, Denies change in bowel habits, Denies excessive flatus, Denies nausea and Denies vomiting Physical exam (Primary Care) Vital Signs: Last Vital Signs BP 130/70 05/16/24 12:45 BMI result Body Mass Index 25.8 Tobacco/Smoking Status: Tobacco use Status Tobacco use date assessed 05/16/24 05/16/24 12:53 Patient Tobacco Use Status Never used Tobacco 05/16/24 12:53 e-Cigarette/Vaping Use Never Used 05/16/24 12:53 PHQ-9: PHQ-9 Score PHQ-9: Total score 12 05/16/24 13:20 Depression Screening Interpretation: Positive Depression Screening Follow-up: Existing condition, In treatment, Community Mental Health Worker F/U and Follow-up Visit Requested Thrive Assessment: Date of Thrive Assessment Date Thrive assessed 05/16/24 05/16/24 12:53 Currently or been in a relationship where the following occur: I choose not to answer Const Limitations: ambulation with cane HENMT Head: Yes normal to inspection, Yes normocephalic and Yes atraumatic Ears: external ears normal Eyes General: appearance normal, both eyes and all related structures Eyelids: Yes eyelids normal Conjunctivae: conjunctivae normal Neck Neck: Yes normal visual inspection and Yes supple Resp Effort & Inspection: normal respiratory effort Auscultation: clear to auscultation bilaterally Cardio Jugular venous distension: no JVD Rate: regular rate Rhythm: regular rhythm Heart sounds: S1 normal heart sound present and S2 normal heart sound present GI Inspection: Yes normal to inspection Palpation (GI): Soft to palpation and nontender Auscultation: normal bowel sounds Skin General skin exam: no rashes or lesions noted Neuro General: no focal motor deficits Extrem General: Yes full ROM Psych Appearance: grossly normal Office Procedures Flu Questionnaire Does the patient have a severe egg allergy?: No Immunizations Fluarix Triv [id number] (PF) 45 mcg (15 mcg x 3)/0.5 mL IM syringe Performing Provider: Fang Seals MD Performing Location: [facility] Documented (not given) by: LESVIA Craig on 05/16/24 13:19 Reason Not Given: Patient Refused pneumoc 20-iris conj-dip cr(PF) 0.5 mL IM syringe Performing Provider: Fang Seals MD Performing Location: [facility] Administered by: LESVIA Craig on 05/16/24 13:20 Dose Route Admin Location Dispensed Lot Number Expiration Date ND Rafter Cutting Machine Operator 0.5 mL IM Left Deltoid 0.5 mL [id number] 08/22/25 [employer] VIS Given Date VIS Provided VIS Publication Date 05/16/24 Single Vaccine 21 Eligibility Eligibility Date Funding Source Not [facility] Eligible 05/16/24 Private Coding Level of Care Code Est Pt Prev Care 40-64y(06964) Diagnoses Physical exam Z00.00 Type 2 diabetes mellitus without complication, without long-term current use of insulin E11.9 Diabetes mellitus type: type 2 Diabetes mellitus local company intermodal truck driver insulin use: without local company intermodal truck driver use Diabetes mellitus complication status: without complication Meningioma D32.9 Mild recurrent major depression F33.0 Additional Codes PALOMA-7 Assessment Billing - PALOMA-7 Assessment Tool: PALOMA-7 Assessment 67305 ([id number]) PHQ-9 - 35976 - PHQ-9 Billing: Yes ([id number]) Time Spent (min) 33 Assessment & Plan Assessment & Plan (1) Physical exam: Code(s): Z00.00 - Encounter for general adult medical examination without abnormal findings Category: Medical (2) Diabetes mellitus: Comment: NIDDM Code(s): E11.9 - Type 2 diabetes mellitus without complications Category: Medical Qualifiers: Diabetes mellitus type: type 2 Diabetes mellitus halfway insulin use: without local company intermodal truck driver use Diabetes mellitus complication status: without complication Qualified Code(s): E11.9 - Type 2 diabetes mellitus without complications (3) Meningioma: Comment: stable 4 mm intrahemispheric meningioma, followed by Dr. Joe every 2 years. Code(s): D32.9 - Benign neoplasm of meninges, unspecified Category: Medical (4) Mild recurrent major depression: Code(s): F33.0 - Major depressive disorder, recurrent, mild Category: Medical Plan - Administer pneumococcal vaccine during this visit. - Conduct laboratory screening for cholesterol management. - Continue current medication regimen for hyperlipidemia, depression, and GERD. - Discuss potential management or surgical intervention for the inguinal hernia if required. - Assess any ongoing or acute issues related to previous lumbar surgery. - Reassess functional limitations in future visits and consider physical therapy for enhancing mobility and function. Patient was informed and verbally consented to the use of an ambient scribe for clinic note documentation during this visit. I discussed the need for the pneumococcal vaccination as part of preventive care, given the patient had received the last vaccine at age 48. We reviewed the current management plan for hyperlipidemia and depression, emphasizing the importance of maintaining current medication adherence. The patient's musculoskeletal limitations were noted, and I acknowledged the need to avoid aggravating these conditions. We discussed the implications of a possible future surgical intervention for the hernia, though no immediate need was identified. Informed consent for the pneumococcal vaccine was obtained. Orders: Orders Influenza [id number] Immunization Today Z23 - Encounter for immunization Lipid Panel Today E78.5 - Hyperlipidemia, unspecified Complete Blood Count Auto Diff Today D64.9 - Anemia, unspecified Pneumococcal 20 Immunization Today Z23 - Encounter for immunization AMB Hemoglobin A1c Today E11.9 - Type 2 diabetes mellitus without complications Vitamin D 25-OH Total Today E55.9 - Vitamin D deficiency, unspecified Vitamin B12 and Folate Today E53.8 - Deficiency of other specified B group vitamins IRON PROFILE Today D64.9 - Anemia, unspecified Comprehensive [place]. Panel Fast Today Z00.00 - Encounter for general adult medical examination without abnormal findings Referrals Open Access Screening Colonoscopy Referral Z12.12 - Encounter for screening for malignant neoplasm of rectum Patient Instructions: - Receive the pneumococcal vaccine today. - Continue taking all current medications as directed. - Follow-up with lab work for cholesterol management. - Report any increase in musculoskeletal pain or changes in function. - Adhere to mental health appointments with psychiatrist and therapist.
== END 2024-05-16 13:18 | disposition home or self-care (01) ==
PROVIDERS: PCP Internal Medicine; Visit Provider Internal Medicine
DX: Z00.00 Encounter for general adult medical examination without abnormal findings (principal); E11.9 Type 2 diabetes mellitus without complications; D32.9 Benign neoplasm of meninges, unspecified; F33.0 Major depressive disorder, recurrent, mild; Z23 Encounter for immunization

== ENCOUNTER → 2024-05-16 12:41 | Outpatient (BNVA) | payer OTHER, SELFPAY | PROVIDERS: PCP Internal Medicine; Visit Provider Internal Medicine | DX: Z00.00 Encounter for general adult medical examination without abnormal findings (principal); Z23 Encounter for immunization; E11.9 Type 2 diabetes mellitus without complications; D32.9 Benign neoplasm of meninges, unspecified; F33.0 Major depressive disorder, recurrent, mild | CPT/HCPCS: 90471; 90677; 96127; 99396 ==

== ENCOUNTER 2024-06-28 07:59 | Outpatient (AMB) | payer OTHER, SELFPAY ==
--- OUTSIDE RECORDS SUMMARY | 2024-06-28 08:04 | XMS_ITS | Encounter Summary ---
Author Organization [facility] Address [address] [place] [address] Phone Care Team Providers Care Diesel Powerplant Supervisor Name Role Phone Fang Salas MD Primary Care Provider [phone] Encounter Details Date Type Department Care Team (Late Contact Info) Description 07/22/2020 Orders Only [facility] [address] [facility] [address] [place] [address] Provider, MD Will [address] [place] [id number] Social History Tobacco Use Types Packs/Day Years Used Date Smoking Tobacco: Never Alcohol Use Standard Drinks/Week Comments No 0 (1 standard drink = 0.6 oz pur e alcohol) Sex and Gender Information Value Date Recorded Sex Assigned at Not on file Legal Sex Male 4:54 PM EST Gender Identity Not on file Sexual Orientation Not on file documented as of this encounter Plan of Treatment Upcoming Encounters Date Type Department Care Team (Late Contact Info) Description 07/23/2024 2:30 PM EDT Office Visit [facility] [address] [facility] [address] [place] [address] Hemant Vega MD [address] [facility] [address] [place] [address] documented as of this encounter Procedures Procedure Name Priority Date/Time Associated Diagnosis Comments EXT RESULT ENTRY Routine 06/16/2020 documented in this encounter Results * EXT RESULT ENTRY (06/16/2020) us Historical Provider LAB BLOOD ORDERABLES Priscila l Result documented in this encounter Visit Diagnoses Not on filedocumented in this encounter Care Teams Diesel Powerplant Supervisor Relationship Specialty Start Date End Date Fang Salas MD [address] [place], [place] PCP - General 05/04/20 documented as of this encounter
--- OUTSIDE RECORDS SUMMARY | 2024-06-28 08:04 | XMS_ITS | Clinical Summary ---
Author Organization [facility] Address [address] [place] [id number] Phone Care Team Providers Care Textile Supervisor Name Role Phone Fang Salas MD Primary Care Provider [phone] Allergies Active Allergy Reactions Criticality Noted Date Comments Dicyclomine Other (see comments) 07/22/2020 Finasteride Other (see comments) 07/22/2020 Hydrocodone-Acetaminophen Other (see comments) 07/22/2020 Lisinopril Other (see comments) 07/22/2020 Medications * This document contains information received from the source organization and may not represent a complete record from that organization. ascorbic acid (VITAMIN C) 1000 MG tablet Take 1 tablet by mouth 1 (one) time each day Active cholecalciferol (VITAMIN D-3) 25 MCG (1000 UT) capsule Take 1 capsule by mouth 1 (one) time each day Active ibuprofen (ADVIL,MOTRIN) 800 MG tablet Take 1 tablet by mouth 4 (four) times a day Active lactulose (CHRONULAC) 10 GM/15ML solution Active linaGLIPtin (Tradjenta) 5 MG tablet Take 1 tablet by mouth 1 (one) time each day Active loratadine (CLARITIN) 10 MG tablet Take 1 tablet by mouth 1 (one) time each day Active losartan (COZAAR) 25 MG tablet Take 1 tablet by mouth 1 (one) time each day Active omeprazole (PriLOSEC) [address] capsule Take 1 capsule by mouth 1 (one) time each day Active ondansetron (Zofran) 4 MG tablet Take 1 tablet by mouth 2 (two) times a day Active pravastatin (PRAVACHOL) 10 MG tablet Take 1 tablet by mouth 1 (one) time each day Active terazosin (HYTRIN) 10 MG capsule Take 1 capsule by mouth 1 (one) time each day Active alpha tocopherol (VITAMIN E) 400 units capsule Take 1 capsule by mouth 1 (one) time each day Active sertraline (ZOLOFT) 100 MG tablet Take 1 tablet by mouth 2 (two) times a day Active Active Problems Problem Noted Date Diagnosed Date Benign essential hypertension 06/24/2020 Proteinuria 06/24/2020 Renal disorder due to type 2 diabetes mellitus 0 06/24/2020 Type 2 diabetes mellitus without complication Immunizations Name Administration Dates Next Due Pfizer SARS-COV-2 07/12/2022 Family History Medical History Relation Comments Heart disease Father Hypertension Father Diabetes Mother Heart disease Mother Hypertension Mother Diabetes Sibling 1 Hypertension Sibling 2 Cancer Sibling 3 Relation Status Comments Father Mother Sibling 1 Sibling 2 Sibling 3 Social History Tobacco Use Types Packs/Day Years Used Date Smoking Tobacco: Never Alcohol Use Standard Drinks/Week Comments No 0 (1 standard drink = 0.6 oz pur e alcohol) Sex and Gender Information Value Date Recorded Sex Assigned at Not on file Legal Sex Male 4:54 PM EST Gender Identity Not on file Sexual Orientation Not on file Last Filed Vital Signs Vital Sign Reading Time Taken Comments Blood Pressure 132/65 10/17/2023 3:57 PM EDT Pulse 77 10/17/2023 3:57 PM EDT Temperature - - Respiratory Rate - - Oxygen Saturation 98% 10/17/2023 3:57 PM EDT Inhaled Oxygen Concentration - - Weight 78.3 kg (172 lb 9.6 oz) 10/17/2023 3:57 P M EDT Height 170.2 cm (5' 7 ) 06/26/2019 12:00 PM EST Body Mass Index 27.03 06/26/2019 12:00 PM EST Plan of Treatment Upcoming Encounters Date Type Department Care Team (Late st Contact Info) Description 07/23/2024 2:30 PM EDT Office Visit [facility] [address] [address] Hemant Vega MD [address] [address] Health Maintenance Due Date Last Done Comments Hepatitis B Vaccine (1 of 3 - 19+ 3-dose series) 12/19/1987 Colorectal Cancer Screening: Annual FOBT 2017 Colorectal Cancer Screening: Colonoscopy 2017 Colorectal Cancer Screening: Sigmoidoscopy 2017 Diabetes: Ophthalmology Exam 05/25/2020 Diabetes: Pedal Pulse Checked 05/25/2020 Diabetes: Sensory Foot Exam 05/25/2020 Diabetes: Visual Foot Exam 05/25/2020 Diabetes: Hemoglobin A1C 03/22/2023 12/20/2022 Influenza Vaccine (#1) 2023 Pneumococcal Vaccine: Pediat rics (0 to 5 Years) and At-Risk Patients (6 to 64 Years) Aged Out No longer eligi ble based on patient's age to complete this topic Procedures Procedure Name Priority Date/Time Associated Diagnosis Comments EXT RESULT ENTRY Routine 12/20/2022 from Last 3 Months or Most Recently Relevant to Health Maintenance Results * (ABNORMAL) EXT RESULT ENTRY (12/20/2022) WBC 7.2 3.3 - 10.0 10*3/ML Red Blood Cell Count 5.50 Hemoglobin 16.0 13.5 - 17.5 Hematocrit 46.4 41.0 - 53.0 Platelets 212 150 - 399 10*3/UL MCV 84.4 82.0 - 108.0 Sodium 142 137 - 147 Potassium 3.7 3.4 - 5.5 Chloride 103.0 99.0 - 108.0 Anion Gap 15 <=30 MMOL/L BUN 27(A) 4 - 21 mg/dL Creatinine 0.95 0.60 - 1.30 mg/dL Albumin 4.7 3.5 - 5.0 g/dL Calcium 10.2 8.7 - 10.7 mg/dL Hemoglobin A1C 6.6(A) 4.0 - 6.0 12/20/2022 Historical Provider LAB BLOOD ORDERABLES Priscila l Result from Last 3 Months or Most Recently Relevant to Health Maintenance Insurance [facility] ([id number]) [facility] ([id number]) Care Teams Textile Supervisor Relationship Specialty Start Date End Date Fang Salas MD [address] [place] [address] PCP - General 05/04/20
--- OUTSIDE RECORDS SUMMARY | 2024-06-28 08:04 | XMS_ITS | Clinical Summary ---
Author Organization [employer] Address [address] [facility] [address] [place] [address] Care Team Providers Care Numerical Control Operator Name Role Phone Unavailable Primary Care Provider Unavailabl e Immunizations Name Administration Dates Next Due Pfizer Covid-19 Vaccine 12+ Bivalent 07/12/2022 Social History Tobacco Use Types Packs/Day Years Used Date Smoking Tobacco: Never Assessed Sex and Gender Information Value Date Recorded Sex Assigned at Male 02/21/2022 10:39 AM EDT Legal Sex Male 10:39 AM EDT Gender Identity Male 02/21/2022 10:39 AM EDT Sexual Orientation Choose not to disclose 2021 10:39 AM EDT Plan of Treatment Health Maintenance Due Date Last Done Comments CT Colonography 1968 Colonoscopy 1968 Colorectal Cancer Screening 1968 Depression Screening 1968 FIT DNA/Cologuard 1968 FIT 1968 FOBT 1968 HIV Screening 1968 Lipid Panel 1968 SDOH Screening 1968 Sigmoidoscopy 1968 Alcohol/Substance Use Screening 1980 Tobacco Screening 1980 Hepatitis C Screening 1986 Hepatitis B Vaccines (1 of 3 - 19+ 3-dose series) 12/19/1987 Zoster Vaccines (1 of 2) 2018 Pneumococcal Vaccine: 50+ Years (2 of 2 - PCV) 02/14/2020 02/13/2019 COVID-19 Vaccine ( season) 2023 07/12/2022, 12/11/2021, 04/02/2021, Additional history exists Influenza Vaccine (#1) 2023 , 01/03/2022, 01/22/2021, Additional history exists DTaP/Tdap/Td Vaccines (2 - Td or Tdap) 10/15/2030 10/15/2020 RSV Patients and Patients Aged 60 years or older (1 - 1-dose 75+ series) 12/19/2043 Pneumococcal Vaccine: Pediatrics (0 to 5 Years) and At-Risk Patients (6 to 49) Years) Aged Out 02/13/2019 No longer eligible based on patient's age to complete this topic HIB Vaccines Aged Out No longer eligi ble based on patient's age to complete this topic HPV Vaccines Aged Out No longer eligi ble based on patient's age to complete this topic Hepatitis A Vaccines Aged Out No long er eligible based on patient's age to complete this topic IPV Vaccines Aged Out No longer eligi ble based on patient's age to complete this topic Meningococcal Vaccine Aged Out No jesus mani eligible based on patient's age to complete this topic RSV under 20 months Aged Out No longe r eligible based on patient's age to complete this topic Rotavirus Vaccines Aged Out No longer eligible based on patient's age to complete this topic [place] [address] [place] [address] [employer]
--- NOTE | 2024-06-28 08:05 | AM.OFFWIN_ITS ---
Intake Vital Signs 06/28/24 08:06 Height 5 ft 6 in Weight 172 lb BMI 27.8 BP 130/72 Blood Pressure Location Lt brachial Position Sitting Pulse 120 H Pulse Source Pulse Oximeter Temp 98.3 F Temp Source Oral Pulse Oximetry (%) 98 Intake Visit Reasons: EP coughing, sore throat, body aches, ears Patient Tobacco Use Status: Never used Tobacco Allergies dicyclomine [Bentyl] Allergy (Intermediate, Verified 06/28/24 08:07) pruritus finasteride Allergy (Intermediate, Verified 06/28/24 08:07) rash hydrocodone [Vicodin] Allergy (Intermediate, Verified 06/28/24 08:07) rash lisinopril Allergy (Intermediate, Verified 06/28/24 08:07) myalgias morphine Allergy (Intermediate, Verified 06/28/24 08:07) unconscious Do you need a note to return to daycare/school/sports/work: No HPI HPI Comments History of Present Illness Details History - The patient is a 53-year-old male pres enting with cough and congestion with left ear pain and sinus pain. - Reports 1 week of persistent cough and nasal congestion. - Indicates pain localized to the left e ar, without associated fevers or dyspnea. - Denies a history of respiratory condit ions such as asthma or COPD. - Has not initiated any nxub-xob-geblpuc therapeutics for symptomatic relief. - Maintains adequate nutritional and flu id intake, with no gastrointestinal disturbances noted. - Retired, eliminating the necessity for occupational restriction documentation. Physical Exam General: Cooperative, healthy appearing, comfortable and no acute distress Orientation/consciousness: Patient oriented x3 Limitations: No limitations Head: Normal to inspection Ears: Hearing grossly normal bilaterally, external ears normal and TM's slight erythema and cerumen bilaterally, no infection noted Nose: Normal external nose present, Normal nares present and No nasal discharge present Face and sinus: Normal facial exam and Yes sinuses nontender Mouth: Normal oral and palatal mucosa present and moist mucous membranes Throat: Yes tonsils normal, Yes uvula midline. Posterior oropharynx erythema Eyes: Appearance normal, both eyes and all related structures Neck: Normal visual inspection Respiratory: Clear to auscultation bilaterally. Normal respiratory effort, able to speak in complete sentences, Actively coughing, no respiratory distress, not tachypneic, no tripod positioning and no use of accessory muscles Cardiovascular: Regular rate and rhythm. Normal S1 and S2 Skin: No rashes or lesions noted Neuro: Patient oriented x3 Extremities: Normal to inspection and Yes no clubbing, cyanosis or edema PFSH Medical History Allergic rhinitis Chest pain Umbilical hernia Candidal intertrigo Transaminitis Lumbar degenerative disc disease PALOMA (generalized anxiety disorder) Mild recurrent major depression Oral lesion Cough Hiatal hernia Hemorrhoids BPH (benign prostatic hyperplasia) Depression with anxiety Chronic leg pain GERD (gastroesophageal reflux disease) Dyslipidemia Essential hypertension Diabetes mellitus Surgical History History of colonoscopy History of removal of cyst History of inguinal hernia repair History of lumbar fusion Family History Father CVD (cardiovascular disease) Hypertension Mother CVD (cardiovascular disease) Hypertension Diabetes Sister Breast cancer Brother Acute appendicitis Diabetes Hypertension Social History Household Members: Friend(s) Housing: Apartment Alcohol intake: never Patient Tobacco Use Status: Never used Tobacco e-Cigarette/Vaping Use: Never Used Second Hand Smoke Exposure: No service: No Current occupational status: disabled Cognitive needs: Yes Hearing needs: No Vision needs: No Review of Systems Const All systems reviewed & are unremarkable except as noted in HPI and below Physical Exam Vital Signs: Last Vital Signs Temp 98.3 F 06/28/24 08:06 Pulse 120 H 06/28/24 08:06 BP 130/72 06/28/24 08:06 Pulse Ox 98 06/28/24 08:06 BMI result Body Mass Index 27.8 Assessment & Plan Assessment & Plan (1) URI, acute: Code(s): J06.9 - Acute upper respiratory infection, unspecified Plan: VSS, pt well appearing and PE unremarkable. sent flu, covid and rsv testing. Sent Flonase for sinus and ear pain management and Benzonatate for nocturnal cough. Symptomatic management through hydration and rest will be recommended initially. Should symptoms persist or worsen, further investigation into possible bacterial causes may be necessary. The patient will be educated on monitoring for symptom progression that would necessitate additional medical assessment. Patient was informed and verbally consented to the use of an ambient scribe for clinic note documentation during this visit Orders: Orders SARS-CoV2/FLU/RSV Today R09.89 - Other specified symptoms and signs involving the circulatory and respiratory systems Medications: New fluticasone propionate 50 mcg/actuation administer into each nostril 1 spray intranasal Q12H 16 grams 0RF benzonatate 200 mg PO BEDTIME PRN 10 caps 0RF cough Coding Level of Care Code Est Pt Level 3 (16369) Diagnoses URI, acute J06.9
[2024-06-28 08:06] VITALS: BP 130/72; PULSE 120; TEMP 36.8; O2SAT 98; BMI 27.8
== END 2024-06-28 08:40 | disposition home or self-care (01) ==
PROVIDERS: PCP Internal Medicine; Visit Provider Physician Assistant
DX: J06.9 Acute upper respiratory infection, unspecified (principal)

== ENCOUNTER 2024-06-28 07:59 | Outpatient (REF) | payer OTHER, SELFPAY ==
--- OUTSIDE RECORDS SUMMARY | 2024-06-28 08:32 | XMS_ITS | Encounter Summary ---
Author Organization [facility] Address [address] [place] [address] Phone Care Team Providers Care Manager Psychology Name Role Phone Fang Salas MD Primary Care Provider [phone] Encounter Details Date Type Department Care Team (Late Contact Info) Description 07/22/2020 Orders Only [facility] [address] [facility] [address] [place] [address] Provider, MD Will [address] [place] [id number] Social History Tobacco Use Types Packs/Day [...] Visit [facility] [address] [facility] [address] [place] [address] Hemant Vega MD [address] [facility] [address] [place] [address] documented as of this encounter Procedures Procedure Name Priority Date/Time Associated Diagnosis Comments EXT RESULT ENTRY Routine 06/16/2020 documented in this encounter Results * EXT RESULT ENTRY (06/16/2020) us Historical Provider LAB BLOOD ORDERABLES Priscila l Result documented in this encounter Visit Diagnoses Not on filedocumented in this encounter Care Teams Manager Psychology Relationship Specialty Start Date End Date Fang Salas MD [address] [place], [place] PCP - General 05/04/20 documented as of this encounter
--- OUTSIDE RECORDS SUMMARY | 2024-06-28 08:32 | XMS_ITS | Clinical Summary ---
Author Organization [facility] Address [address] [facility] 7t [place] [address] Care Team Providers Care Licensing Analyst Name Role Phone Unavailable Primary Care Provider [...] patient's age to complete this topic Insurance [place] [address] [employer]
--- OUTSIDE RECORDS SUMMARY | 2024-06-28 08:32 | XMS_ITS | Clinical Summary ---
Author Organization [facility] Address [address] [place] [phone] Phone Care Team Providers Care Digital Pre Press Operator Name Role Phone Fang Salas MD Primary Care Provider [phone] Allergies Active Allergy Reactions Criticality Noted Date [...] Visit [facility] [address] [address] Hemant Vega MD [address] [address] Health Maintenance Due Date Last [...] Most Recently Relevant to Health Maintenance Insurance [facility] ([id number]) [facility] ([id number]) Care Teams Digital Pre Press Operator Relationship Specialty Start Date End Date Fang Salas MD [address] [place] [address] PCP - General 05/04/20
[2024-06-28 12:28] LABS: Influenza A PCR NEGATIVE (Negative); Influenza B PCR NEGATIVE (Negative); Resp Syncy Virus RNA Qual PCR NEGATIVE (Negative); SARS COV2 PCR INHOUSE POSITIVE (Negative)
== END 2024-06-28 08:00 | disposition home or self-care (01) ==
LOC: HO.LAB 07:59
PROVIDERS: PCP Internal Medicine; Visit Provider Physician Assistant
DX: J06.9 Acute upper respiratory infection, unspecified (principal); R09.89 Other specified symptoms and signs involving the circulatory and respiratory systems
CPT/HCPCS: 0241U; 99212

== ENCOUNTER 2024-07-26 07:34 | Emergency (ER) | payer OTHER, SELFPAY ==
[2024-07-26 07:36] VITALS: BP 122/79; PULSE 82; RESP 18; TEMP 36.7; O2SAT 97; BMI 28.2
--- OUTSIDE RECORDS SUMMARY | 2024-07-26 07:59 | XMS_ITS | Clinical Summary ---
Author Organization [email or web address] Address [address] [facility] 7[address] [place] [address] Care Team Providers Care Repairer Finished Metal Name Role Phone Unavailable Primary Care Provider [...] patient's age to complete this topic [place] [address] [address] [employer]
--- OUTSIDE RECORDS SUMMARY | 2024-07-26 07:59 | XMS_ITS | Encounter Summary ---
Author Organization [facility] Address [address] [place] [address] Phone Care Team Providers Care Ui Designer Name Role Phone Fang Salas MD Primary Care Provider [phone] Encounter Details Date Type Department Care Team (Late Contact Info) Description 07/22/2020 Orders Only [facility] [address] [facility] [address] [place] [address] Provider, MD Will [address] [place] [id number] Social History Tobacco Use Types Packs/Day [...] Department Care Team (Late Contact Info) Description 07/26/2024 10:00 AM EDT Office [facility] [address] [facility] [address] [place] [address] Hemant Vega MD [address] [facility] [address] [place] [address] documented as of this encounter Procedures Procedure Name Priority Date/Time Associated Diagnosis Comments EXT RESULT ENTRY Routine 06/16/2020 documented in this encounter Results * EXT RESULT ENTRY (06/16/2020) us Historical Provider LAB BLOOD ORDERABLES Priscial l Result documented in this encounter Visit Diagnoses Not on filedocumented in this encounter Care Teams Ui Designer Relationship Specialty Start Date End Date Fang Salas MD [address] [place], [place] PCP - General 05/04/20 documented as of this encounter
--- OUTSIDE RECORDS SUMMARY | 2024-07-26 07:59 | XMS_ITS | Clinical Summary ---
Author Organization [facility] Address [address] [place] [phone] Phone Care Team Providers Care Range Operator Name Role Phone Fang Salas MD Primary Care Provider [phone] Allergies Active Allergy Reactions Criticality Noted Date [...] Care Team (Late st Contact Info) Description 07/26/2024 10:00 AM EDT [facility] [address] [address] Hemant Vega MD [address] [address] Health Maintenance Due Date Last Done Comments Hepatitis B Vaccine (1 of 3 - 19+ 3-dose series) 12/19/1987 Colorectal Cancer Screening: Annual FOBT 2017 Colorectal Cancer Screening: Colonoscopy 2017 Colorectal Cancer Screening: Sigmoidoscopy 2017 Diabetes: Ophthalmology Exam 05/25/2020 Diabetes: Pedal Pulse Checked 05/25/2020 Diabetes: Sensory Foot Exam 05/25/2020 Diabetes: Visual Foot Exam 05/25/2020 Diabetes: Hemoglobin A1C 03/22/2023 12/20/2022 Influenza Vaccine (Season Ended) 2024 Pneumococcal Vaccine: Pediat rics (0 to 5 Years) and At-Risk Patients (6 to 64 Years) Aged Out No longer eligi ble based on patient's age to complete this topic Procedures Procedure Name Priority Date/Time Associated Diagnosis Comments ALT EXT LABS Routine 07/19/2024 EXT RESULT ENTRY Routine 12/20/2022 from Last 3 Months or Most Recently Relevant to Health Maintenance Results * (ABNORMAL) ALT EXT LABS (07/19/2024) WBC 6.9 3.3 - 10.0 10*3/ML Red Blood Cell Count 6.53 Hemoglobin 14.8 13.5 - 17.5 Hematocrit 46.9 41.0 - 53.0 Platelets 244 150 - 399 10*3/UL BUN 18 4 - 21 mg/dL Creatinine 1.20 0.60 - 1.30 mg/dL Albumin 4.9 3.5 - 5.0 g/dL Calcium 9.5 8.7 - 10.7 mg/dL Sodium 144 137 - 147 Potassium 4.2 3.4 - 5.5 Chloride 103.0 99.0 - 108.0 Bicarbonate (CO2) 21(A) 22 - 30 mmol/L 07/19/2024 us Historical Provider LAB BLOOD ORDERABLES Priscila l Result * (ABNORMAL) EXT RESULT ENTRY (12/20/2022) WBC [...] Most Recently Relevant to Health Maintenance Insurance ([id number]) [place] [id number] [facility] ([id number]) Care Teams Range Operator Relationship Specialty Start Date End Date Fang Salas MD [address] [place], [place] PCP - General 05/04/20
[2024-07-26 08:16] LABS: COVID-19 Test Negative (Negative); IDNOW Serial# 55D5AD1C
--- NOTE | 2024-07-26 08:26 | ED.GENADULT ---
HPI - General Adult General Chief complaint: General Medical Stated complaint: COVID + x 1 Month Time Seen by Provider: 07/26/24 08:21 Source: patient and assessment specialist (algerian) Mode of arrival: ambulatory Limitations: language barrier (algerian) History of Present Illness ED Provider: GOGO FREDERICK PA-C HPI narrative: 53 year old algerian speaking male with pmhx significant for DM, HTN, HLD, GERD, BPH, depression, and anxiety presents to the ED today requesting COVID testing. He reports testing positive for COVID 1 month ago. As a result, he has not seen his son in over a month as he new it was contagious. He would like to see his son tomorrow and would like to ensure that he does not have COVID. He denies any symptoms/ concerns. Denies fever, chills, sore throat, cough, myalgias, N/V, abd pain, constipation, diarrhea. research contracts supervisor utilized throughout visit to communicate with patient. Related Data Home Medications ?Medication ?Instructions ?Recorded ?Confirmed bupropion HCl 300 mg 24 hr tablet, 300 mg PO DAILY 03/11/20 05/16/24 extended release clonazepam 0.5 mg tablet mg PO 03/11/20 05/16/24 escitalopram oxalate 5 mg tablet 5 mg PO DAILY 03/11/20 05/16/24 multivitamin 1 tab PO DAILY 11/24/20 05/16/24 Previous Rx's ?Medication ?Instructions ?Recorded linaclotide 145 mcg capsule 145 mcg PO DAILY #90 caps 03/12/20 (Linzess) azelastine 137 mcg (0.1 %) nasal 1 spray intranasal BID #30 mL 10/15/20 spray hydrocortisone 2.5 % topical cream 1 appl [place] BID PRN hemorrhoids #30 01/06/21 with perineal applicator grams (Proctozone-HC) acetaminophen 500 mg capsule 1,000 mg (2 x 500 mg) PO Q8H PRN 02/05/21 pain #90 caps chair lift #1 ea 03/09/21 omeprazole 20 mg capsule,delayed 20 mg PO DAILY 90 days #90 caps 05/31/21 release clotrimazole-betamethasone 1 1 appl topical BID 14 days #15 06/08/21 %-0.05 % topical cream grams nystatin 100,000 unit/gram topical 1 appl topical QID #30 grams 07/08/21 ointment ibuprofen 600 mg tablet 600 mg PO Q6H PRN pain #20 tabs 09/02/21 blood sugar diagnostic #100 ea 09/30/22 blood-glucose meter #1 ea 09/30/22 lancets 33 gauge (Antonia Bhatti #100 ea 09/30/22 Lancets) flash glucose scanning reader #1 ea 12/20/22 (FreeStyle Eduardo 14 Day [place]) flash glucose sensor (FreeStyle #1 ea 12/20/22 Eduardo 14 Day Sensor kit) loperamide 2 mg capsule 2 mg PO Q6H PRN loose stool 1 day 04/05/23 #4 caps linagliptin 5 mg tablet (Tradjenta) 5 mg PO DAILY #90 tabs 07/12/23 hydrochlorothiazide 25 mg tablet 25 mg PO DAILY 90 days #90 tabs 10/09/23 docusate sodium 100 mg capsule 200 mg (2 x 100 mg) PO .qhs #60 11/05/23 caps terazosin 10 mg capsule 10 mg PO DAILY 90 days #90 caps 11/26/23 methylcellulose (laxative) 500 mg 500 mg PO BID #60 tabs 01/31/24 tablet (Citrucel) cetirizine 10 mg tablet 10 mg PO QAM #90 tabs 02/11/24 metformin 1,000 mg tablet 1,000 mg PO BID #180 tabs 02/11/24 albuterol sulfate 2.5 mg/3 mL 2.5 mg (3 mL) inhalation QID PRN 03/11/24 (0.083 %) solution for nebulization shortness of breath or wheezing #75 mL fluticasone propionate 50 1 spray intranasal DAILY #16 grams 03/11/24 mcg/actuation nasal spray,suspension cholecalciferol (vitamin D3) 25 25 mcg PO DAILY 90 days #90 caps 04/25/24 mcg (1,000 unit) capsule betamethasone dipropionate 0.05 % 1 appl topical DAILY PRN skin 05/23/24 topical cream irritation 2 weeks #15 grams empagliflozin 10 mg tablet 10 mg PO DAILY 90 days #90 tabs 05/24/24 (Jardiance) atorvastatin 40 mg tablet 40 mg PO BEDTIME 90 days #90 tabs 06/23/24 benzonatate 200 mg capsule 200 mg PO BEDTIME PRN cough #10 06/28/24 caps fluticasone propionate 50 1 spray intranasal Q12H #16 grams 06/28/24 mcg/actuation nasal spray,suspension loperamide 2 mg capsule (Imodium 2 mg PO Q6H PRN loose stool 2 days 07/05/24 A-D) #8 caps hydroxyzine HCl 25 mg tablet 25 mg PO TID PRN itching 30 days 07/07/24 #90 tabs Allergies Allergy/AdvReac Type Severity Reaction Status Date / Time dicyclomine [Bentyl] Allergy Intermediate pruritus Verified 07/26/24 07:42 finasteride Allergy Intermediate rash Verified 07/26/24 07:42 hydrocodone [Vicodin] Allergy Intermediate rash Verified 07/26/24 07:42 lisinopril Allergy Intermediate myalgias Verified 07/26/24 07:42 morphine Allergy Intermediate unconscious Verified 07/26/24 07:42 Review of Systems Review of Systems: Yes all other systems are reviewed and are negative [facility] Past Medical History Attestation statement: The following information was validated with the patient. Source: old records reviewed and nursing notes reviewed Medical History Allergic rhinitis Chest pain Umbilical hernia Candidal intertrigo Transaminitis Lumbar degenerative disc disease PALOMA (generalized anxiety disorder) Mild recurrent major depression Oral lesion Cough Hiatal hernia Hemorrhoids BPH (benign prostatic hyperplasia) Depression with anxiety Chronic leg pain GERD (gastroesophageal reflux disease) Dyslipidemia Essential hypertension Diabetes mellitus Surgical History History of colonoscopy History of removal of cyst History of inguinal hernia repair History of lumbar fusion Family History Family History Father CVD (cardiovascular disease) Hypertension Mother CVD (cardiovascular disease) Hypertension Diabetes Sister Breast cancer Brother Acute appendicitis Diabetes Hypertension Social History Social History Household Members: Friend(s) Housing: Apartment Alcohol intake: never Patient Tobacco Use Status: Never used Tobacco e-Cigarette/Vaping Use: Never Used Second Hand Smoke Exposure: No Advance Directives: No Advance Directives Information Provided: No service: No Current occupational status: disabled Cognitive needs: Yes Hearing needs: No Vision needs: No Physical Exam ED Vital Signs: Vital Signs - 24 hr 07/26/24 07:36 Temperature 98.1 F Pulse Rate 82 Respiratory Rate 18 Blood Pressure 122/79 Pulse Oximetry 97 Oxygen Delivery Method Room Air BMI result Body Mass Index 28.2 vital signs stable, afebrile, not hypoxic General: Well appearing, in no acute distress. Skin: Warm, dry, intact. No rashes or lesions. Head: Normocephalic, atraumatic. EENT: Hearing is intact b/l. Conjunctiva clear. PERRLA. EOM intact. Moist mucous membranes.? Neck: Supple without LAD Cardiac: Chest wall symmetric. RRR Lungs: Normal respiratory effort without accessory muscle use. CTA bilaterally Abdomen: Soft, non-tender, non-distended Ext: Upper and lower extremities atraumatic, without tenderness, deformity, swelling or erythema Neuro: AOx3. Normal speech. Ambulating with steady gait. Course Course Course Narrative: Patient tested negative for COVID. Patient has remained stable throughout ED visit today. Discussed worrisome signs and symptoms and when to return to the ED. All questions answered at this time. Patient is agreeable with disposition and stable for discharge. Medical Decision Making Medical Decision Making [facility] Narrative: 53 year old algerian speaking male with pmhx significant for DM, HTN, HLD, GERD, BPH, depression, and anxiety presents to the ED today requesting COVID testing. Vital signs stable. afebrile. not hypoxic. he is well appearing and in NAD. exam benign. Plan for covid test and likely discharge home. Differential Diagnosis Differential Diagnoses: The differential diagnosis associated with the presentation includes as above. Admission/Observation not indicated. Lab Data [facility] Lab Attestation statement: I reviewed the patient's lab results. as above. Labs: Lab Results 07/26/24 Range/Units 07:47 COVID-19 (IRMA) Negative (Negative) COVID-19 Clin Com See Note External Record Review External record reviewed: Inpatient record Social Determinants Patient?s care significantly limited by Social Determinants of Health including: Other Social Determinant of Health Critical Care Time Critical Care Time Critical Care Time: No Discharge Plan Discharge Clinical Impression: Lab test negative for COVID-19 virus Patient Disposition: Home, Self-Care Instructions: COVID-19 (Coronavirus Disease 2019) (ED) Additional Instructions: You presented to the ED today requesting to be tested for covid. Your covid test is negative. Follow up with outpatient providers as needed. Return with any new or worsening symptoms. In the case of an emergency call 911. Prescriptions: No Action linaclotide [Linzess] 145 mcg capsule 145 mcg PO DAILY Qty: 90 0RF (DME) chair lift See Rx Instructions .Route .MEDSUPPLY Qty: 1 0RF Rx Instructions: As directed omeprazole 20 mg capsule,delayed release(DR/EC) 20 mg PO DAILY 90 Days Qty: 90 3RF clotrimazole-betamethasone 1-0.05 % cream 1 appl topical BID 14 Days Qty: 15 1RF (DME) blood-glucose meter Kit See Rx Instructions .Route Qty: 1 0RF Rx Instructions: As directed (DME) blood sugar diagnostic Strip See Rx Instructions .Route Qty: 100 0RF Rx Instructions: As directed (DME) lancets [OneTouch Delica Lancets] 33 gauge misc See Rx Instructions .Route Qty: 100 0RF Rx Instructions: As directed (DME) FreeStyle Eduardo 14 Day Sensor Kit See Rx Instructions .Route Qty: 1 11RF Rx Instructions: As directed (DME) FreeStyle Eduardo 14 Day [place] Misc See Rx Instructions .Route Qty: 1 0RF Rx Instructions: As directed loperamide 2 mg capsule 2 mg PO Q6H PRN (Reason: loose stool) 1 Days Qty: 4 0RF Tradjenta 5 mg tablet 5 mg PO DAILY Qty: 90 3RF hydrochlorothiazide 25 mg tablet 25 mg PO DAILY 90 Days Qty: 90 3RF docusate sodium 100 mg capsule 200 mg PO .qhs Qty: 60 5RF terazosin 10 mg capsule 10 mg PO DAILY 90 Days Qty: 90 3RF Citrucel 500 mg tablet 500 mg PO BID Qty: 60 5RF metformin 1,000 mg tablet 1,000 mg PO BID Qty: 180 3RF cetirizine 10 mg tablet 10 mg PO QAM Qty: 90 1RF cholecalciferol (vitamin D3) 25 mcg (1,000 unit) capsule 25 mcg PO DAILY 90 Days Qty: 90 1RF betamethasone dipropionate 0.05 % cream 1 appl topical DAILY PRN (Reason: skin irritation) 14 Days Qty: 15 1RF Jardiance 10 mg tablet 10 mg PO DAILY 90 Days Qty: 90 1RF atorvastatin 40 mg tablet 40 mg PO BEDTIME 90 Days Qty: 90 1RF loperamide [Imodium A-D] 2 mg capsule 2 mg PO Q6H PRN (Reason: loose stool) 2 Days Qty: 8 0RF hydroxyzine HCl 25 mg tablet 25 mg PO TID PRN (Reason: itching) 30 Days Qty: 90 1RF ibuprofen 600 mg tablet 600 mg PO Q6H PRN (Reason: pain) Qty: 20 0RF azelastine 137 mcg (0.1 %) aerosol,spray 1 spray intranasal BID Qty: 30 0RF clonazepam 0.5 mg tablet PO escitalopram oxalate 5 mg tablet 5 mg PO DAILY bupropion HCl 300 mg tablet extended release 24 hr 300 mg PO DAILY acetaminophen 500 mg capsule 1,000 mg PO Q8H PRN (Reason: pain) Qty: 90 0RF nystatin 100,000 unit/gram ointment 1 appl topical QID Qty: 30 0RF multivitamin Tablet 1 tab PO DAILY hydrocortisone [Proctozone-HC] 2.5 % cream with perineal applicator 1 appl AK BID PRN (Reason: hemorrhoids) Qty: 30 4RF Rx Instructions: apply AK BID prn albuterol sulfate 2.5 mg /3 mL (0.083 %) solution for nebulization 2.5 mg inhalation QID PRN (Reason: shortness of breath or wheezing) Qty: 75 0RF fluticasone propionate 50 mcg/actuation spray,suspension 1 spray intranasal DAILY Qty: 16 3RF fluticasone propionate 50 mcg/actuation spray,suspension 1 spray intranasal Q12H Qty: 16 0RF Rx Instructions: administer into each nostril benzonatate 200 mg capsule 200 mg PO BEDTIME PRN (Reason: cough) Qty: 10 0RF Referrals: Fang Salas MD [Primary Care Provider] - Print Language: Bulgarian
[2024-07-26 08:45] VITALS: BP 122/79; PULSE 82; RESP 18; TEMP 36.7; O2SAT 97
--- NOTE | 2024-07-26 08:46 | PC.NURSE ---
PT WAS SEEN BY PROVIDER AND DISCHARGED FROM PIT
== END 2024-07-26 08:47 | disposition home or self-care (01) ==
PROVIDERS: Emergency Provider Emergency Medicine; PCP Internal Medicine
DX: F41.9 Anxiety disorder, unspecified (principal); I10 Essential (primary) hypertension; Z79.899 Other long term (current) drug therapy; Z11.52 Encounter for screening for COVID-19
CPT/HCPCS: 87635; 99282; 99283

== ENCOUNTER 2024-10-01 08:14 | Outpatient (AMB) | payer OTHER, SELFPAY ==
[2024-10-01 08:15] VITALS: BP 130/80; PULSE 69; TEMP 36.6; O2SAT 98
--- NOTE | 2024-10-01 08:15 | AM.OFFWIN_ITS ---
Intake Vital Signs 10/01/24 08:15 Weight 171 lb 8 oz BP 130/80 Blood Pressure Location Lt brachial Position Sitting Pulse 69 Pulse Source Pulse Oximeter Temp 97.9 F Temp Source Oral Pulse Oximetry (%) 98 Oxygen Delivery Method Room Air Intake Visit Reasons: EP Swollen LT eye lid Intake Note: Patient here for left eye swelling and discharge that has been present for a couple of days. Patient Tobacco Use Status: Never used Tobacco Allergies dicyclomine [Bentyl] Allergy (Intermediate, Verified 10/01/24 08:16) pruritus finasteride Allergy (Intermediate, Verified 10/01/24 08:16) rash hydrocodone [Vicodin] Allergy (Intermediate, Verified 10/01/24 08:16) rash lisinopril Allergy (Intermediate, Verified 10/01/24 08:16) myalgias morphine Allergy (Intermediate, Verified 10/01/24 08:16) unconscious Medication List - Last Reconciled 10/01/24 by Chad Tomlin MD acetaminophen 1,000 mg (2 x 500 mg) PO Q8H PRN albuterol sulfate 2.5 mg (3 mL) inhalation QID PRN atorvastatin 40 mg PO BEDTIME 90 days azelastine 1 spray intranasal BID betamethasone dipropionate 0.05% 1 appl topical DAILY PRN 2 weeks blood sugar diagnostic As directed blood-glucose meter As directed bupropion HCl XL 300 mg PO DAILY cetirizine 10 mg PO QAM [chair lift As directed] cholecalciferol (vitamin D3) 25 mcg PO DAILY 90 days clonazepam mg PO clotrimazole-betamethasone 1-0.05 % 1 appl topical BID 14 days docusate sodium 200 mg (2 x 100 mg) PO .qhs empagliflozin (Jardiance) 10 mg PO DAILY 90 days escitalopram oxalate 5 mg PO DAILY flash glucose scanning reader (FreeStyle Eduardo 14 Day [place]) As directed flash glucose sensor (FreeStyle Eduardo 14 Day Sensor kit) As directed fluticasone propionate 50 mcg/actuation 1 spray intranasal DAILY fluticasone propionate 50 mcg/actuation 1 spray intranasal Q12H [Freestyle Eduardo 3 glucometer As directed] hydrochlorothiazide 25 mg PO DAILY 90 days hydrocortisone 2.5% (Proctozone-HC) 1 appl [place] BID PRN hydrocortisone acetate 1% 1 appl topical BID PRN 2 weeks hydroxyzine HCl 25 mg PO TID PRN 30 days ibuprofen 600 mg PO Q6H PRN lancets (OneTouch Delica Lancets) As directed linaclotide (Linzess) 145 mcg PO DAILY linagliptin (Tradjenta) 5 mg PO DAILY loperamide 2 mg PO Q6H PRN 1 day loperamide (Imodium A-D) 2 mg PO Q6H PRN 2 days metformin 1,000 mg PO BID methylcellulose (laxative) (Citrucel) 500 mg PO BID multivitamin 1 tab PO DAILY nebulizers (AeroEclipse II Nebulizer) As directed nystatin 1 appl topical QID omeprazole 20 mg PO DAILY 90 days terazosin 10 mg PO DAILY 90 days Do you need a note to return to daycare/school/sports/work: No HPI EP Swollen LT eye lid HPI Details History - The patient is a 53-year-old male pres enting with a recurrent chalazion. - The patient initially experienced burke lar symptoms in 2020, which were treated with eye drops. - Symptoms include swelling of the upper eyelid, significant pain, and watery discharge from the eye. The discharge is noted to be clear or white in nature. - Symptoms began approximately four days ago, with rapid progression noted by the patient. vision is fine Medical History: - Conjunctivitis (2020) Problem List - Chalazion upper eye lid left Patient Instructions - Use prescribed eye drops for the full course of one week. - Apply compresses and gently massage th e eyelid. - If the condition does not improve with in 24-48 hours, contact your eye doctor. - Ensure hygiene by washing hands before touching the eyes. Review of Systems - General: No fever no chills - Neurological: No headaches no dizziness - Ear nose throat: No sore throat no hearing difficulty no ear pain Physical Exam General: No acute distress HEENT: Conjunctivitis, sty on upper eyelid, watery discharge from eyes, AXEL, EOMI, no photobhobia Neck: Supple Respiratory system: Able to talk in full sentences Extremities: No new findings HANDWRITING EXPERT: Alert awake oriented x3 motor sensory intact Skin: Normal turgor PFSH Medical History Allergic rhinitis Chest pain Umbilical hernia Candidal intertrigo Transaminitis Lumbar degenerative disc disease PALOMA (generalized anxiety disorder) Mild recurrent major depression Oral lesion Cough Hiatal hernia Hemorrhoids BPH (benign prostatic hyperplasia) Depression with anxiety Chronic leg pain GERD (gastroesophageal reflux disease) Dyslipidemia Essential hypertension Diabetes mellitus Surgical History History of colonoscopy History of removal of cyst History of inguinal hernia repair History of lumbar fusion Family History Father CVD (cardiovascular disease) Hypertension Mother CVD (cardiovascular disease) Hypertension Diabetes Sister Breast cancer Brother Acute appendicitis Diabetes Hypertension Social History Household Members: Friend(s) Housing: Apartment Alcohol intake: never Patient Tobacco Use Status: Never used Tobacco e-Cigarette/Vaping Use: Never Used Second Hand Smoke Exposure: No service: No Current occupational status: disabled Cognitive needs: Yes Hearing needs: No Vision needs: No Physical Exam Vital Signs: Last Vital Signs Temp 97.9 F 10/01/24 08:15 Pulse 69 10/01/24 08:15 BP 130/80 10/01/24 08:15 Pulse Ox 98 10/01/24 08:15 Oxygen Delivery Method Room Air 10/01/24 08:15 Assessment & Plan Assessment & Plan (1) Hordeolum externum left upper eyelid: Code(s): H00.014 - Hordeolum externum left upper eyelid Plan History - The patient is a 53-year-old male presenting with a recurrent chalazion. - The patient initially experienced similar symptoms in 2020, which were treated with eye drops. - Symptoms include swelling of the upper eyelid, significant pain, and watery discharge from the eye. The discharge is noted to be clear or white in nature. - Symptoms began approximately four days ago, with rapid progression noted by the patient. vision is fine Medical History: - Conjunctivitis (2020) Problem List - Chalazion upper eye lid left Patient Instructions - Use prescribed eye drops for the full course of one week. - Apply compresses and gently massage the eyelid. - If the condition does not improve within 24-48 hours, contact your eye doctor. - Ensure hygiene by washing hands before touching the eyes. Medications: New polymyxin B sulf-trimethoprim 10,000 unit- 1 mg/mL 1 drp ophthalmic (eye) QID 10 mL 0RF 7 days Coding Level of Care Code Est Pt Level 3 (33709) Diagnoses Hordeolum externum left upper eyelid H00.014
--- OUTSIDE RECORDS SUMMARY | 2024-10-01 08:23 | XMS_ITS | Clinical Summary ---
Author Organization [employer] Address [address] [facility] [address] [address] [place] [address] Care Team Providers Care Hand Mold Maker Name Role Phone Unavailable Primary Care Provider Unavailabl e Immunizations Immunization Administration Dates Next Due Pfizer Covid-19 Vaccine [...] Panel 1968 SDOH Screening 1968 Sigmoidoscopy 1968 Disability Screening 1968 Alcohol/Substance Use Screening 1980 Tobacco Screening 1980 Hepatitis C Screening 1986 Hepatitis B Vaccines (1 of 3 - 19+ 3-dose series) 12/19/1987 Zoster Vaccines (1 of 2) 2018 Pneumococcal Vaccine: 50+ Years (2 of 2 - PCV) 02/14/2020 02/13/2019 COVID-19 Vaccine ( season) 2023 07/12/2022, 12/11/2021, 04/02/2021, Additional history exists Influenza Vaccine (Season Ended) 2024 01/23/2023, 01/03/2022, 01/22/2021, Additional history exists DTaP/Tdap/Td Vaccines (2 - Td or Tdap) 10/15/2030 10/15/2020 RSV Patients and Patients Aged 60 years or older (1 - 1-dose 75+ series) 12/19/2043 HIB Vaccines Aged Out No longer eligi [...] patient's age to complete this topic Meningococcal B Vaccine Aged Out No l onger eligible based on patient's age to complete this topic Meningococcal Vaccine Aged Out No jesus mani eligible based on patient's age to complete this topic RSV under 20 months Aged Out No longe r eligible based on patient's age to complete this topic Rotavirus Vaccines Aged Out No longer eligible based on patient's age to complete this topic Insurance [id number] < 65 [place] [id number]
== END 2024-10-01 08:37 | disposition home or self-care (01) ==
PROVIDERS: PCP Internal Medicine; Visit Provider Internal Medicine
DX: H00.014 Hordeolum externum left upper eyelid (principal)

== ENCOUNTER → 2024-10-01 08:14 | Outpatient (BNVA) | payer OTHER, SELFPAY | PROVIDERS: PCP Internal Medicine; Visit Provider Internal Medicine | DX: H00.014 Hordeolum externum left upper eyelid (principal) | CPT/HCPCS: 99212 ==

== ENCOUNTER 2024-10-22 08:12 | Outpatient (AMB) | payer OTHER, SELFPAY ==
--- OUTSIDE RECORDS SUMMARY | 2024-10-22 08:19 | XMS_ITS | Clinical Summary ---
Author Organization [employer] Address [address] [facility] [address] [place] [address] Care Team Providers Care Regional Maintenance Manager Name Role Phone Unavailable Primary Care Provider [...] patient's age to complete this topic Insurance [id number] < 65 [place] [id number]
--- OUTSIDE RECORDS SUMMARY | 2024-10-22 08:19 | XMS_ITS | Encounter Summary ---
Author Organization [facility] Address [address] [place] [address] Phone Care Team Providers Care Processing Talc And Borate Supervisor Name Role Phone Fang Salas MD Primary Care Provider Encounter Details Date Type Department Care Team (Late Contact Info) Description 07/22/2020 Orders Only [facility] [address] [place] [address] Provider, MD Will Social History Tobacco Use Types Packs/Day Years [...] Department Care Team (Late Contact Info) Description 10/23/2024 3:00 PM EDT Office Visit [facility] [address] [facility] [address] [place] [phone] Hemant Vega MD [address] [facility] [address] [place] [address] documented as of this encounter Procedures Procedure Name Priority Date/Time Associated Diagnosis Comments EXT RESULT ENTRY Routine 06/16/2020 documented in this encounter Results * EXT RESULT ENTRY (06/16/2020) us Historical Provider LAB BLOOD ORDERABLES Priscila l Result documented in this encounter Visit Diagnoses Not on filedocumented in this encounter Care Teams Processing Talc And Borate Supervisor Relationship Specialty Start Date End Date Fang Salas MD [address] [place], [place] PCP - General 05/04/20 documented as of this encounter
--- NOTE | 2024-10-22 08:23 | A.OFFPC_ITS ---
Vital Signs 10/22/24 08:24 Height 5 ft 6 in Weight 167 lb BMI 27.0 BP 132/80 Blood Pressure Location Lt brachial Position Sitting Intake Visit Reasons: DM Intake Note: Patient here for a follow up DM Doctor Of Nurse Anesthesia Required: No Accompanied by: Self / Same As Patient Allergies dicyclomine (Bentyl) Allergy (Intermediate, Verified 10/22/24 08:41) pruritus finasteride Allergy (Intermediate, Verified 10/22/24 08:41) rash hydrocodone (Vicodin) Allergy (Intermediate, Verified 10/22/24 08:41) rash lisinopril Allergy (Intermediate, Verified 10/22/24 08:41) myalgias morphine Allergy (Intermediate, Verified 10/22/24 08:41) unconscious Medication List - Last Reconciled 10/22/24 by Fang Seals MD acetaminophen 1,000 mg (2 x 500 mg) PO Q8H PRN albuterol sulfate 2.5 mg (3 mL) inhalation QID PRN atorvastatin 40 mg PO BEDTIME 90 days azelastine 1 spray intranasal BID betamethasone dipropionate 0.05% 1 appl topical DAILY PRN 2 weeks blood sugar diagnostic As directed blood-glucose meter As directed bupropion HCl XL 300 mg PO DAILY cetirizine 10 mg PO QAM [chair lift As directed] cholecalciferol (vitamin D3) 25 mcg PO DAILY 90 days clonazepam mg PO clotrimazole-betamethasone 1-0.05 % 1 appl topical BID 14 days docusate sodium 200 mg (2 x 100 mg) PO .qhs empagliflozin (Jardiance) 10 mg PO DAILY 90 days escitalopram oxalate 5 mg PO DAILY flash glucose scanning reader (FreeStyle Eduardo 14 Day [place]) As directed flash glucose sensor (FreeStyle Eduardo 14 Day Sensor kit) As directed fluticasone propionate 50 mcg/actuation 1 spray intranasal Q12H [Freestyle Eduardo 3 glucometer As directed] hydrochlorothiazide 25 mg PO DAILY 90 days hydrocortisone 2.5% (Proctozone-HC) 1 appl HI BID PRN hydrocortisone acetate 1% 1 appl topical BID PRN 2 weeks hydroxyzine HCl 25 mg PO TID PRN 30 days ibuprofen 600 mg PO Q6H PRN lancets (OneTouch Delica Lancets) As directed linaclotide (Linzess) 145 mcg PO DAILY linagliptin (Tradjenta) 5 mg PO DAILY loperamide 2 mg PO Q6H PRN 1 day loperamide (Imodium A-D) 2 mg PO Q6H PRN 2 days metformin 1,000 mg PO BID methylcellulose (laxative) (Citrucel) 500 mg PO BID multivitamin 1 tab PO DAILY nebulizers (AeroEclipse II Nebulizer) As directed nystatin 1 appl topical QID omeprazole 20 mg PO DAILY 90 days polymyxin B sulf-trimethoprim 10,000 unit- 1 mg/mL 1 drp ophthalmic (eye) QID 7 days terazosin 10 mg PO DAILY 90 days Tobacco use date assessed: 05/16/24 Dental Screening Dental Screen Date: 05/16/24 HPI HPI Comments History of Present Illness Details The patient is a 53-year-old male presenting with a follow-up for diabetes management and preventative care. The patient has a history of Type 2 Diabetes Mellitus, with a current HbA1c of 6.8%, indicating good control without the use of insulin. He has been managing his diabetes with oral medications and lifestyle modifications. The patient also has a history of hypertension, which is currently well- controlled with medication. He is on hydrochlorothiazide for blood pressure management. Hyperlipidemia is another chronic condition for which the patient is taking atorvastatin 40 mg. The patient has a history of depression, managed with bupropion 300 mg. He reports allergic reactions to several medications, including Bentyl, Asterida, Vicodin, lisinopril, and morphine, with symptoms ranging from rash to muscle pain and loss of consciousness. The patient has benign prostatic hyperplasia, for which he is taking terazocine. He experiences chronic pain in the right leg, which is a persistent issue. The patient has a history of colonic polyps, with the last colonoscopy performed in 2020. He is due for another colonoscopy as polyps were previously removed, and follow-up was recommended within 3 to 5 years. [facility] Medical History Allergic rhinitis Chest pain Umbilical hernia Candidal intertrigo Transaminitis Lumbar degenerative disc disease PALOMA (generalized anxiety disorder) Mild recurrent major depression Oral lesion Cough Hiatal hernia Hemorrhoids BPH (benign prostatic hyperplasia) Depression with anxiety Chronic leg pain GERD (gastroesophageal reflux disease) Dyslipidemia Essential hypertension Diabetes mellitus Surgical History History of colonoscopy History of removal of cyst History of inguinal hernia repair History of lumbar fusion Family History Father CVD (cardiovascular disease) Hypertension Mother CVD (cardiovascular disease) Hypertension Diabetes Sister Breast cancer Brother Acute appendicitis Diabetes Hypertension Social History Household Members: Friend(s) Housing: Apartment Alcohol intake: never Patient Tobacco Use Status: Never used Tobacco e-Cigarette/Vaping Use: Never Used Second Hand Smoke Exposure: No service: No Current occupational status: disabled Cognitive needs: Yes Hearing needs: No Vision needs: No Questionnaire PHQ-9 Over the last 2 weeks, how often have you been bothered by any of the following problems? 9. Thoughts that you would be better off or of hurting yourself in some way: not at all Source: Developed by Drs. Chirag Bass, Cat Wong, Sivakumar Melvin and colleagues, with an educational elidia from [employer]. Thrive Questionnaire Date Thrive assessed: 05/16/24 I am a: Patient What is your living situation today?: I choose not to answer this question Within the past 12 months, did the food you bought not last and you didn't have the money to get more?: Sometimes True Within the past 12 months, did you worry whether your food would run out before you got money to buy more?: Sometimes True Do you have trouble paying for medicines?: No Do you have trouble getting transportation to medical appointments?: No Do you have trouble paying your heating and electricity bill?: I choose not to answer this question Do you have trouble taking care of your child, family member or friend?: I choose not to answer this question Do you have trouble with day-to-day activities such as bathing, preparing meals, shopping, managing finances, etc.?: Yes Are you currently unemployed and looking for a job?: Yes Are you interested in more education?: No Please select the resources that you would like help with: Food Currently or been in a relationship where the following occur: I choose not to answer THRIVE Score: 2 PALOMA-7 AMB Questionnaire PALOMA-7 Date PALOMA - 7 assessed: 05/16/24 Source: Developed by Drs. Chirag Bass, Cat Wong, Sivakumar Melvin and colleagues, with an educational elidia from [employer]. Review of Systems Const All systems reviewed & are unremarkable except as noted in HPI and below Card Denies chest pain at rest, Denies chest pain with activity, Denies edema, Denies irregular heart rhythm, Denies claudication, Denies dyspnea, Denies dyspnea on exertion, Denies orthopnea, Denies paroxysmal nocturnal dyspnea and Denies slow heart rate Resp Denies cough, Denies dyspnea and Denies dyspnea on exertion GI Denies abdominal pain, Denies change in bowel habits, Denies excessive flatus, Denies nausea and Denies vomiting Denies urinary hesitancy, Denies urinary incontinence and Denies urinary urgency Musc Denies atrophy, Denies deformity and Denies limited range of motion Physical exam (Primary Care) Vital Signs: Last Vital Signs BP 132/80 10/22/24 08:24 BMI result Body Mass Index 27.0 Tobacco/Smoking Status: Tobacco use Status Tobacco use date assessed 05/16/24 10/22/24 08:29 Patient Tobacco Use Status Never used Tobacco 10/22/24 08:29 e-Cigarette/Vaping Use Never Used 10/22/24 08:29 Thrive Assessment: Date of Thrive Assessment Date Thrive assessed 05/16/24 10/22/24 08:29 Currently or been in a relationship where the following occur: I choose not to answer Const Limitations: ambulation with cane Resp Effort & Inspection: normal respiratory effort Auscultation: clear to auscultation bilaterally Cardio Jugular venous distension: no JVD Rate: regular rate Rhythm: regular rhythm Heart sounds: S1 normal heart sound present and S2 normal heart sound present Neuro General: no focal motor deficits Extrem General: Yes full ROM Results AMB Hemoglobin A1c AMB Hemoglobin A1c 6.8 % Last Edit by LESVIA Craig on 10/22/24 08:3 9 Results Reviewed Results Reviewed: Laboratory Last Values Hgb A1c (Clinic) 6.8 % (4.0-6.0) H 10/22/24 08:22 Coding Level of Care Code Est Pt Level 4 (97975) Complex EM visit Add On G2211 Diagnoses Mild recurrent major depression F33.0 PALOMA (generalized anxiety disorder) F41.1 Essential hypertension I10 Type 2 diabetes mellitus without complication, without long-term current use of insulin E11.9 Diabetes mellitus type: type 2 Diabetes mellitus truck terminal manager insulin use: without truck terminal manager use Diabetes mellitus complication status: without complication Gastroesophageal reflux disease, unspecified whether esophagitis present K21.9 Esophagitis presence: esophagitis presence not specified BPH (benign prostatic hyperplasia) N40.0 Chronic leg pain M79.606; G89.29 Time Spent (min) 24 Assessment & Plan Assessment & Plan (1) Mild recurrent major depression: Code(s): F33.0 - Major depressive disorder, recurrent, mild Category: Medical (2) PALOMA (generalized anxiety disorder): Code(s): F41.1 - Generalized anxiety disorder Category: Medical (3) Essential hypertension: Code(s): I10 - Essential (primary) hypertension Category: Medical (4) Diabetes mellitus: Comment: NIDDM Code(s): E11.9 - Type 2 diabetes mellitus without complications Category: Medical Qualifiers: Diabetes mellitus type: type 2 Diabetes mellitus truck terminal manager insulin use: without [facility] use Diabetes mellitus complication status: without compli cation Qualified Code(s): E11.9 - Type 2 diabetes mellitus without complications (5) GERD (gastroesophageal reflux disease): Comment: avoid culprits Stop ppi- may take carafate for 2 weeks-HPUBT Code(s): K21.9 - Gastro-esophageal reflux disease without esophagitis Category: Medical Qualifiers: Esophagitis presence: esophagitis presence not specified Qualified Code(s): K21.9 - Gastro-esophageal reflux disease without esophagitis (6) BPH (benign prostatic hyperplasia): Code(s): N40.0 - Benign prostatic hyperplasia without lower urinary tract symptoms Category: Medical (7) Chronic leg pain: Code(s): M79.606 - Pain in leg, unspecified; G89.29 - Other chronic pain Category: Medical Plan The patient will continue with current diabetes management, as the HbA1c level of 6.8% indicates effective control without insulin. Hypertension management will continue with hydrochlorothiazide, as blood pressure is well-controlled. For hyperlipidemia, the patient will maintain atorvastatin 40 mg therapy. Depression management with bupropion 300 mg will continue. The patient is advised to avoid medications that previously caused allergic reactions. Terazocine will continue for benign prostatic hyperplasia management. A colonoscopy is recommended due to the history of polyps, with the last procedure in 2020. Patient was informed and verbally consented to the use of an ambient scribe for clinic note documentation during this visit. Orders: Orders AMB Hemoglobin A1c Today E11.9 - Type 2 diabetes mellitus without complications Microalbumin, Random (w Creat) Today R80.9 - Proteinuria, unspecified Comprehensive [place]. Panel Fast Today E11.9 - Type 2 diabetes mellitus without complications Lipid Panel Today E78.5 - Hyperlipidemia, unspecified Vitamin D 25-OH Total Today E55.9 - Vitamin D deficiency, unspecified Medications: Refilled flash glucose scanning reader ([email or web address] Eduardo 14 Day [place]) As directed 1 ea 11RF E11.9 - Type 2 diabetes mellitus without complications
[2024-10-22 08:24] VITALS: BP 132/80; BMI 27.0
== END 2024-10-22 08:55 | disposition home or self-care (01) ==
LOC: HO.HMCH 08:13
PROVIDERS: PCP Internal Medicine; Visit Provider Internal Medicine
DX: F33.0 Major depressive disorder, recurrent, mild (principal); F41.1 Generalized anxiety disorder; I10 Essential (primary) hypertension; E11.9 Type 2 diabetes mellitus without complications; K21.9 Gastro-esophageal reflux disease without esophagitis; N40.0 Benign prostatic hyperplasia without lower urinary tract symptoms; M79.606 Pain in leg, unspecified; G89.29 Other chronic pain

== ENCOUNTER → 2024-10-22 08:12 | Outpatient (BNVA) | payer OTHER, SELFPAY | PROVIDERS: PCP Internal Medicine; Visit Provider Internal Medicine | DX: E11.9 Type 2 diabetes mellitus without complications (principal); I10 Essential (primary) hypertension; E78.5 Hyperlipidemia, unspecified; F33.0 Major depressive disorder, recurrent, mild; F41.1 Generalized anxiety disorder; K21.9 Gastro-esophageal reflux disease without esophagitis; N40.0 Benign prostatic hyperplasia without lower urinary tract symptoms; M79.606 Pain in leg, unspecified; G89.29 Other chronic pain; Z79.4 Long term (current) use of insulin | CPT/HCPCS: 83036; 99212 ==

== ENCOUNTER 2024-10-31 14:10 | Outpatient (AMB) | payer OTHER, SELFPAY ==
--- OUTSIDE RECORDS SUMMARY | 2024-10-31 14:21 | XMS_ITS | Clinical Summary ---
Author Organization [employer] Address [address] [place] [address] Care Team Providers Care Marine Designer Name Role Phone Unavailable Primary Care Provider [...] 04/02/2021, Additional history exists Influenza Vaccine (#1) 2024 , 01/03/2022, 01/22/2021, Additional history exists DTaP/Tdap/Td [...] patient's age to complete this topic Insurance [id number] < 65 [place] [id number]
--- OUTSIDE RECORDS SUMMARY | 2024-10-31 14:21 | XMS_ITS | Encounter Summary ---
Author Organization [facility] Address [address] [place] [address] Phone Care Team Providers Care Whitewasher Name Role Phone Fang Salas MD Primary Care Provider [phone] Encounter Details Date Type Department Care Team (Late Contact Info) Description 07/22/2020 Orders Only [facility] [address] [place] [address] Provider, MD Will Social History [...] Department Care Team (Late Contact Info) Description 11/13/2024 2:00 PM EDT Office Visit [facility] [address] [place] [phone] Hemant Vega MD [address] [facility] [address] [place] [address] documented as of this encounter Procedures Procedure Name Priority Date/Time Associated Diagnosis Comments EXT RESULT ENTRY Routine 06/16/2020 documented in this encounter Results * EXT RESULT ENTRY (06/16/2020) us Historical Provider LAB BLOOD ORDERABLES Priscila l Result documented in this encounter Visit Diagnoses Not on filedocumented in this encounter Care Teams Whitewasher Relationship Specialty Start Date End Date Fang Salas MD [address] [place], [place] PCP - General 05/04/20 documented as of this encounter
[2024-10-31 14:32] VITALS: BP 110/70; PULSE 67; O2SAT 98; BMI 27.6
--- NOTE | 2024-10-31 14:32 | MHC.OFFVIS ---
Vital Signs 10/31/24 14:32 Height 5 ft 6 in Weight 170 lb 13.732 oz BMI 27.6 BP 110/70 Blood Pressure Location Lt brachial Position Sitting Pulse 67 Pulse Source Pulse Oximeter Pulse Oximetry (%) 98 Oxygen Delivery Method Room Air Intake Visit Reasons: dyspnea Allergies dicyclomine (Bentyl) Allergy (Intermediate, Verified 10/31/24 15:00) pruritus finasteride Allergy (Intermediate, Verified 10/31/24 15:00) rash hydrocodone (Vicodin) Allergy (Intermediate, Verified 10/31/24 15:00) rash lisinopril Allergy (Intermediate, Verified 10/31/24 15:00) myalgias morphine Allergy (Intermediate, Verified 10/31/24 15:00) unconscious Medication List - Last Reconciled 10/31/24 by Carlos Sharma MD acetaminophen 1,000 mg (2 x 500 mg) PO Q8H PRN albuterol sulfate 2.5 mg (3 mL) inhalation QID PRN ascorbate calcium (vitamin C) 500 mg PO BID atorvastatin 40 mg PO BEDTIME 90 days azelastine 1 spray intranasal BID betamethasone dipropionate 0.05% 1 appl topical DAILY PRN 2 weeks blood sugar diagnostic As directed blood-glucose meter As directed blood-glucose sensor (FreeStyle Eduardo 3 Plus Sensor device) As directed bupropion HCl XL 300 mg PO DAILY cetirizine 10 mg PO QAM [chair lift As directed] cholecalciferol (vitamin D3) 25 mcg PO DAILY 90 days clonazepam mg PO clotrimazole-betamethasone 1-0.05 % 1 appl topical BID 14 days docusate sodium 200 mg (2 x 100 mg) PO .qhs empagliflozin (Jardiance) 10 mg PO DAILY 90 days escitalopram oxalate 5 mg PO DAILY flash glucose scanning reader (FreeStyle Eduardo 14 Day [place]) As directed fluticasone propionate 50 mcg/actuation 1 spray intranasal Q12H [Freestyle Eduardo 3 glucometer As directed] [FreeStyle Eduardo 3 plus reader As directed] hydrochlorothiazide 25 mg PO DAILY 90 days hydrocortisone 2.5% (Proctozone-HC) 1 appl DC BID PRN hydrocortisone acetate 1% 1 appl topical BID PRN 2 weeks hydroxyzine HCl 25 mg PO TID PRN 30 days ibuprofen 600 mg PO Q6H PRN lancets (OneTouch Delica Lancets) As directed linaclotide (Linzess) 145 mcg PO DAILY linagliptin (Tradjenta) 5 mg PO DAILY loperamide 2 mg PO Q6H PRN 1 day loperamide (Imodium A-D) 2 mg PO Q6H PRN 2 days melatonin 5 - 10 mg PO BEDTIME metformin 1,000 mg PO BID methylcellulose (laxative) (Citrucel) 500 mg PO BID multivitamin 1 tab PO DAILY nebulizers (AeroEclipse II Nebulizer) As directed nystatin 1 appl topical QID omeprazole 20 mg PO DAILY 90 days polymyxin B sulf-trimethoprim 10,000 unit- 1 mg/mL 1 drp ophthalmic (eye) QID 7 days terazosin 10 mg PO DAILY 90 days Do you need a note to return to daycare/school/sports/work: No HPI HPI dyspnea: Details: This 53 years old gentleman is back here in the office today, complaining of mild shortness of breath when he walks around, occasional cough, but no wheezing. He was last seen in August 2022 for the similar symptoms. He is nonsmoker. Gives history of having COVID infection at least 3 times but not after 2022. He claims that before 2022 he has lived in some apartments which had lot of mold, and he wants to make sure that his lungs are not affected by molds anymore. After 2022 visit he was supposed to have pulmonary function test but never showed up for the test. Today he is relatively asymptomatic except for what is described above. He walks with a cane due to ongoing chronic back pain. He denies smoking or using any illicit drugs. ON LICENSE OF [facility] Medical History Allergic rhinitis Chest pain Umbilical hernia Candidal intertrigo Transaminitis Lumbar degenerative disc disease PALOMA (generalized anxiety disorder) Mild recurrent major depression Oral lesion Cough Hiatal hernia Hemorrhoids BPH (benign prostatic hyperplasia) Depression with anxiety Chronic leg pain GERD (gastroesophageal reflux disease) Dyslipidemia Essential hypertension Diabetes mellitus Surgical History History of colonoscopy History of removal of cyst History of inguinal hernia repair History of lumbar fusion Family History Father CVD (cardiovascular disease) Hypertension Mother CVD (cardiovascular disease) Hypertension Diabetes Sister Breast cancer Brother Acute appendicitis Diabetes Hypertension Social History Household Members: Friend(s) Housing: Apartment Alcohol intake: never Patient Tobacco Use Status: Never used Tobacco e-Cigarette/Vaping Use: Never Used Second Hand Smoke Exposure: No service: No Current occupational status: disabled Cognitive needs: Yes Hearing needs: No Vision needs: No Review of Systems Const All systems reviewed & are unremarkable except as noted in HPI and below Eyes Reports no additional complaints ENT Reports nasal congestion (CONTROLLED AT THIS TIME) Card Denies chest pain and Reports dyspnea on exertion (MILD) Resp Reports as per HPI and Reports dyspnea on exertion (MILD) GI Reports heartburn (GERD SYMPTOMS CONTROLLED WITH OMEPRAZOLE) Reports no additional complaints Musc Reports myalgias (MILD) Skin/Breast Reports system reviewed and no additional complaints, except as documented Neuro Reports no additional complaints Psych Reports depression (RECURRENT, CONTROLLED AT THIS TIME) Endo Reports other (DIABETES MELLITUS) Stan/Lymph Reports no additional complaints Aller/Immun Reports no additional complaints Physical Exam Vital Signs: Last Vital Signs Pulse 67 10/31/24 14:32 BP 110/70 10/31/24 14:32 Pulse Ox 98 10/31/24 14:32 Oxygen Delivery Method Room Air 10/31/24 14:32 BMI result Body Mass Index 27.6 Const General: comfortable, no acute distress, alert and awake Orientation/consciousness: patient oriented x3 HEENT Head: Yes normal to inspection General nose exam: No nasal polyps present and No nasal discharge present Face and sinus: Yes sinuses nontender Mouth: oropharynx normal Throat: Yes posterior oropharynx normal Eyes General: appearance normal, both eyes and all related structures Neck Neck: Yes normal visual inspection, Yes no lymphadenopathy, Yes trachea midline and Yes no JVD Thyroid: Thyroid normal Chest Chest palpation & inspection: normal inspection of the chest, normal palpation of entire chest wall and no tenderness Resp Other: PERCUSSION NOTE IS RESONANT, BREATH SOUNDS ARE EQUAL ON BOTH SIDES. NO WHEEZES OR RHONCHI ARE HEARD Cardio Palpation: normal PMI Rate: regular rate Rhythm: regular rhythm Heart sounds: no gallops and no murmurs Peripheral pulses: Peripheral pulses 2+ throughout GI Palpation (GI): Soft to palpation, nontender, No hepatosplenomegaly present and no masses Auscultation: normal bowel sounds Back/Spine/Pelvis Thoracic/Lumbar Spine: thoracic and lumbar spine normal to inspection and thoraco-lumbar ROM limited Skin General skin exam: no rashes or lesions noted Neuro General: patient oriented x3 and no focal motor deficits Cranial nerves: Yes CN's II-XII intact bilaterally Extrem General: Yes normal to inspection, Yes no clubbing, cyanosis or edema and Yes no calf tenderness Psych Appearance: grossly normal and well kempt Speech and movement: Normal speech and movement present Assessment & Plan Assessment & Plan (1) Cough: Comment: He has very minimal cough and it is not bothersome at present. He just wants to make sure that there is no permanent damage to his lungs from COVID infection and exposure to molds . Code(s): R05 - Cough Category: Medical Plan: Reassured that on examination his lungs are normal. But I will order a chest x-ray for peace of mind. (2) Dyspnea: Comment: DYSPNEA ON EXERTION, MILD, NONSPECIFIC,, MAY HAVE BEEN TRIGGERED BY A HIS COVID INFECTION before 2022 . CHEST X-RAY WAS ORDERED BUT HE NEVER WENT FOR THE TEST,. PULMONARY FUNCTION TEST WAS ALSO ORDERED, BUT HE NEVER SHOWED UP FOR THIS TEST. Code(s): R06.00 - Dyspnea, unspecified Category: Medical Plan: I ORDERED THE CHEST X-RAY AND ADVISED HIM TO GO AND HAVE IT DONE TODAY . ALSO ORDERED PULMONARY FUNCTION TEST WILL RECHECK HIM AFTER THE PFT IS DONE Orders: Orders XR chest 2V Today R05 - Cough, R06.00 - Dyspnea, unspecified PFT pulmonary function test Today R05 - Cough, R06.00 - Dyspnea, unspecified Coding Level of Care Code Est Pt Level 3 (98130) Diagnoses Cough R05 Dyspnea R06.00
== END 2024-10-31 14:54 | disposition home or self-care (01) ==
LOC: HO.HPS 14:11
PROVIDERS: PCP Internal Medicine; Visit Provider Internal Medicine
DX: R05.9 Cough, unspecified (principal); R06.00 Dyspnea, unspecified
CPT/HCPCS: 99213

== ENCOUNTER 2024-10-31 14:10 | Outpatient (REF) | payer OTHER, SELFPAY ==
--- NOTE | ~2024-10-31 | XR_ITS ---
EXAMINATION: XR CHEST CLINICAL INFORMATION: R05 - Cough COMPARISON: February 21, 2023. TECHNIQUE: 2 views of the chest were obtained. FINDINGS: Pulmonary reticular pattern. Patchy opacity in the right perihilar region. No pleural effusion. No pneumothorax. No hyperinflation. Cardiomediastinal silhouette size is normal. Calcified plaque thoracic aorta. Vascular clips in the left axillary region.. Multilevel thoracolumbar spondylosis and a S-shaped curvature of the thoracolumbar spine Cylindrical shaped metallic structure in the presternal soft tissues.. XR/XR chest 2V IMPRESSION: Concerning acute small airway inflammatory process in the correct clinical settings. Scoliosis. Vascular clips left axillary region. Electronically signed by: Lawrence Siegel MD 10/31/2024 03:38 PM EDT
== END 2024-10-31 14:11 | disposition home or self-care (01) ==
LOC: HO.XRAY 14:10
PROVIDERS: PCP Internal Medicine; Visit Provider Internal Medicine
DX: R05.9 Cough, unspecified (principal); R06.00 Dyspnea, unspecified
CPT/HCPCS: 71046; 99212

== ENCOUNTER → 2024-10-31 14:58 | Outpatient (BNV) | payer OTHER, SELFPAY | PROVIDERS: PCP Internal Medicine; Visit Provider Radiology Diagnostic Radiology | DX: R05.9 Cough, unspecified (principal); M41.34 Thoracogenic scoliosis, thoracic region; Z95.828 Presence of other vascular implants and grafts | CPT/HCPCS: 71046 ==

== ENCOUNTER 2024-11-04 07:53 | Outpatient (REF) | payer OTHER, SELFPAY ==
--- OUTSIDE RECORDS SUMMARY | 2024-11-04 07:55 | XMS_ITS | Encounter Summary ---
Author Organization [facility] Address [address] [place] [address] Phone Care Team Providers Care Back Maker Name Role Phone Fang Salas MD Primary Care Provider Encounter Details Date Type Department Care Team (Late Contact Info) Description 07/22/2020 Orders Only [facility] [address] [place] [address] Provider, MD Will Social History [...] Office Visit [facility] [address] [phone] Hemant Vega MD [address] [facility] [address] [place] [address] documented as of this encounter Procedures Procedure Name Priority Date/Time Associated Diagnosis Comments EXT RESULT ENTRY Routine 06/16/2020 documented in this encounter Results * EXT RESULT ENTRY (06/16/2020) us Historical Provider LAB BLOOD ORDERABLES Priscila l Result documented in this encounter Visit Diagnoses Not on filedocumented in this encounter Care Teams Back Maker Relationship Specialty Start Date End Date Fang Salas MD [address] [place], [place] PCP - General 05/04/20 documented as of this encounter
--- OUTSIDE RECORDS SUMMARY | 2024-11-04 07:55 | XMS_ITS | Clinical Summary ---
Author Organization [employer] Address [address] [facility] 7t [place] [address] Care Team Providers Care Fleet Mechanic Name Role Phone Unavailable Primary Care Provider [...] patient's age to complete this topic Insurance [id number] ONE [facility] < 63 [place] [id number]
[2024-11-04 08:09] LABS: MANUAL DIFF FLAG NO
[2024-11-04 08:44] LABS: Hematocrit 48.3 % (42.0-52.0); Hemoglobin 16.7 g/dl (14.0-18.0); Imm Gran Abs Auto 0.04 X10*3/uL (0.00-0.03); Imm Gran Pct Auto 0.6 % (0.0-0.4); Lymphocytes Absolute Auto 1.3 X10*3/uL (1.2-4.9); Mean Corpuscular HGB Conc 34.6 g/dl (31.0-36.0); Mean Corpuscular Hemoglobin 29.2 pg (27.0-33.0); Mean Corpuscular Volume 84.4 fL (80.0-98.0); NRBC Abs Auto 0.000 X10*3/uL (0.0-0.012); NRBC Pct Auto 0.0 /100WBC (0.0-0.2); Platelet Count 206 X10*3/uL (160-400); Red Blood Count 5.72 X10*6/uL (4.60-5.80); White Blood Count 6.5 X10*3/uL (4.8-10.8)
[2024-11-04 09:22] LABS: Alanine Aminotransferase 25 U/L (0-40); Albumin Level 4.9 g/dL (3.5-5.0); Alkaline Phosphatase 71 U/L (39-117); Anion Gap 13 (12-20); Aspartate Amino Transferase 26 U/L (5-37); Blood Urea Nitrogen 19 mg/dL (9-16); Calcium 9.6 mg/dL (8.4-10.2); Carbon Dioxide 28 mmol/L (22-29); Chloride 104 mmol/L (96-108); Cholesterol 125 mg/dL (<200); Estimated Glomerular Filt Rate > 60; HDL Cholesterol 50 mg/dL (>40); Iron 95 mcg/dL (45-160); Percent Iron Saturation 30 % (15-50); Potassium 3.2 mmol/L (3.3-5.1); Sodium 142 mmol/L (135-145); Total Iron Binding Capacity 317 mcg/dL (228-428); Total Protein 7.8 g/dL (6.5-8.0); Triglycerides 121 mg/dL (<150); Unsaturated Iron Binding 222 ug/dL
[2024-11-04 09:45] LABS: Folate 16.6 ng/mL (> or = 4.0); Vitamin B12 313 pg/mL (200-900)
[2024-11-04 10:42] LABS: Appearance Urine Clear; Glucose Urine UA >=1000 mg/dL (Negative); PH 6.5 (5.0-9.0); Specific Gravity - Urine >= 1.030 (1.005-1.025); UMIC TRIGGER UACC YES
[2024-11-04 11:24] LABS: Microalbum/Creatinine Ratio Ur 48.7 ug/mg cr (<30)
== END 2024-11-04 07:54 | disposition home or self-care (01) ==
LOC: HO.LAB 07:53
PROVIDERS: Visit Provider Internal Medicine
DX: E11.9 Type 2 diabetes mellitus without complications (principal); E53.8 Deficiency of other specified B group vitamins; E78.5 Hyperlipidemia, unspecified; R80.9 Proteinuria, unspecified; E55.9 Vitamin D deficiency, unspecified; D64.9 Anemia, unspecified
CPT/HCPCS: 36415; 80053; 80061; 81001; 81003; 82043; 82306; 82570; 82607; 82746; 83540; 85025

== ENCOUNTER 2024-11-13 08:13 | Outpatient (AMB) | payer OTHER, SELFPAY ==
--- OUTSIDE RECORDS SUMMARY | 2024-11-13 08:23 | XMS_ITS | Clinical Summary ---
Author Organization [facility].. Address [address] [place] [phone] Phone Care Team Providers Care Patient Partner Name Role Phone Fang Salas MD Primary Care Provider [phone] Allergies Active Allergy Reactions Criticality Noted Date [...] Type 2 diabetes mellitus without complication Immunizations Immunization Administration Dates Next Due Pfizer SARS-COV-2 07/12/2022 [...] Care Team (Late st Contact Info) Description 11/13/2024 2:00 PM EDT Office Visit [facility] [address] [address] Hemant Vega MD [address] [address] Health Maintenance Due Date Last Done Comments Hepatitis B Vaccine (1 of 3 - 19+ 3-dose series) 12/18 Colorectal Cancer Screening: Annual FOBT 2017 Colorectal Cancer Screening: Colonoscopy 2017 Colorectal Cancer Screening: Sigmoidoscopy 2017 Pneumococcal Vaccine: 50+ Years (1 of 1 - PCV) 019 Diabetes: Ophthalmology Exam 05/25/2020 Diabetes: Pedal Pulse Checked 05/25/2020 Diabetes: Sensory Foot Exam 05/25/2020 Diabetes: Visual Foot Exam 05/25/2020 Diabetes: Hemoglobin A1C 03/22/2023 12/20/2022 Influenza Vaccine (#1) 2024 Procedures Procedure Name Priority Date/Time Associated Diagnosis [...] Most Recently Relevant to Health Maintenance Insurance [facility] ([id number]) [facility] ([id number]) Care Teams Patient Partner Relationship Specialty Start Date End Date Fang Salas MD [address] [place] [address] PCP - General 05/04/20
--- OUTSIDE RECORDS SUMMARY | 2024-11-13 08:23 | XMS_ITS | Clinical Summary ---
Author Organization [email or web address] Address [address] [facility] 7t [place] [address] Care Team Providers Care Public Relations Counselor Name Role Phone Unavailable Primary Care Provider [...] patient's age to complete this topic Insurance [id number] ONE [facility] < 63 [place] [id number]
--- NOTE | 2024-11-13 08:32 | A.OFFVIS_ITS ---
VS Expanded 11/13/24 08:33 Height 5 ft 6 in Weight 168 lb 10.458 oz BMI 27.2 Intake Visit Reasons: DM Allergies dicyclomine (Bentyl) Allergy (Intermediate, Verified 11/21/24 14:30) pruritus finasteride Allergy (Intermediate, Verified 11/21/24 14:30) rash hydrocodone (Vicodin) Allergy (Intermediate, Verified 11/21/24 14:30) rash lisinopril Allergy (Intermediate, Verified 11/21/24 14:30) myalgias morphine Allergy (Intermediate, Verified 11/21/24 14:30) unconscious Nutrition Presentation Details: Pt presents for MNT for T2DM Pt reports having good appetite currently having challenges with monitoring blood glucose by finger stick due to pain in fingers. Pt is waiting for approval tor glucose sensor- Pt reports participating in a community lunch program , 5 days a week Food frequency Fruits: 2 /day fish: 2/month vegetables: 3 x/wk dairy: 1-2 /d (yogurt or milk/cheese) B: coffee/cream 2 large L: hot dog with bun, water D:rice/beans/chicken /water snack: fruit Pt wants to work on meal planning BS Monitoring Most Recent Diabetes Results: Microalb/Creat Ratio, (<30) 48.7 ug/mg cr H 11/04/24 Cholesterol, (<200) 125 mg/dL 11/04/24 HDL Cholesterol, (>40) 50 mg/dL 11/04/24 Triglycerides, (<150) 121 mg/dL 11/04/24 Creatinine, (0.5-1.4) 0.83 mg/dL 11/04/24 BUN, (9-16) 19 mg/dL H 11/04/24 Sodium, (135-145) 142 mmol/L 11/04/24 Potassium, (3.3-5.1) 3.2 mmol/L L Δ 11/04/24 Chloride, (96-108) 104 mmol/L 11/04/24 Carbon Dioxide, (22-29) 28 mmol/L 11/04/24 Calcium, (8.4-10.2) 9.6 mg/dL 11/04/24 AST, (5-37) 26 U/L 11/04/24 ALT, (0-40) 25 U/L 11/04/24 Total Protein, (6.5-8.0) 7.8 g/dL 11/04/24 Albumin, (3.5-5.0) 4.9 g/dL 11/04/24 VDZ-Hrtoqro-Ws.Jeor Equation Height: 5 ft 6 in Weight: 169 lb Resting Metabolic Rate: 1547.95 Calculated Activity Level: Sedentary Calories Needed to Maintain Weight: 1857.54 Diagnosis Nutrition problem #1: altered nutrition labs [facility] Medical History Allergic rhinitis Chest pain Umbilical hernia Candidal intertrigo Transaminitis Lumbar degenerative disc disease PALOMA (generalized anxiety disorder) Mild recurrent major depression Oral lesion Cough Hiatal hernia Hemorrhoids BPH (benign prostatic hyperplasia) Depression with anxiety Chronic leg pain GERD (gastroesophageal reflux disease) Dyslipidemia Essential hypertension Diabetes mellitus Surgical History History of colonoscopy History of removal of cyst History of inguinal hernia repair History of lumbar fusion Family History Father CVD (cardiovascular disease) Hypertension Mother CVD (cardiovascular disease) Hypertension Diabetes Sister Breast cancer Brother Acute appendicitis Diabetes Hypertension Social History Household Members: Friend(s) Housing: Apartment Alcohol intake: never Patient Tobacco Use Status: Never used Tobacco e-Cigarette/Vaping Use: Never Used Second Hand Smoke Exposure: No service: No Current occupational status: disabled Cognitive needs: Yes Hearing needs: No Vision needs: No Assessment & Plan Assessment & Plan (1) Diabetes mellitus: Comment: NIDDM Code(s): E11.9 - Type 2 diabetes mellitus without complications Category: Medical Qualifiers: Diabetes mellitus complication status: without complication Diabetes mellitus predatory animal exterminator insulin use: without predatory animal exterminator use Diabetes mellitus type: type 2 Qualified Code(s): E11.9 - Type 2 diabetes mellitus without complications Plan: Wt: 81 Kg ( 07/2023 ), 77kg (11/15) Est kcal needs as per MSJ: 1900 (40% carb, 30% protein/fat) Est fluid needs as per 30 ml/d: 2400 Est prot per day as per 1 g/kg bw: 81 Recommend fiber intake : 8-10 g per day and gradually increase to 25-28 g per day for women and 35-38 g for men or as tolerated Recommend sodium intake per day : less than 2000 mg Educated patient on: ( R = reviewed V = verbalizes understanding N/R = needs review N/A = not applicable * Food sources of carbohydrate, adequate serving sizes and its role in various health conditions: NR * Differences between complex carbohydrates a simple carbohydrates, role of fiber in diet: NR * Lean protein sources of foods: R V * Differences between types of fats and role in diet (mono on saturated fat fatty acids, saturated fatty acids, trans fats): R basic * Food sources of sodium in salt and healthy modifications for heart health in kidney health: N/R * Vitamins and minerals: N/R * Healthy plate method concept: R * Physical activity: Benefits a precaution: N/R * Hypoglycemia protocol (rule of 15): R * Dietary prevention of Hyperglycemia: R Patient Instructions: Include a fruit in between meal as snack see 8320-8291 tc meal plan Coding Level of Care Code Nutr Indiv Subseq (50837) Diagnoses Type 2 diabetes mellitus without complication, without long-term current use of insulin E11.9 Diabetes mellitus complication status: without complication Diabetes mellitus predatory animal exterminator insulin use: without chcf use Diabetes mellitus type: type 2 Time Spent (min) 30
[2024-11-13 08:33] VITALS: BMI 27.2
[2024-11-26 14:59] VITALS: BMI 27.3
== END 2024-11-13 09:04 | disposition home or self-care (01) ==
LOC: HO.ENCR 08:14
PROVIDERS: PCP Internal Medicine; Visit Provider Dietitian, Registered
DX: E11.9 Type 2 diabetes mellitus without complications (principal)

== ENCOUNTER → 2024-11-13 08:13 | Outpatient (BNVA) | payer OTHER, SELFPAY | PROVIDERS: PCP Internal Medicine; Visit Provider Dietitian, Registered | DX: E11.9 Type 2 diabetes mellitus without complications (principal); Z71.3 Dietary counseling and surveillance | CPT/HCPCS: 97803 ==

== ENCOUNTER 2024-11-20 13:39 | Outpatient (REF) | payer OTHER, SELFPAY ==
--- NOTE | 2024-11-20 13:30 | PFT_ITS ---
Indication: Asthma Spirometry FEV1 to FVC 89%; FEV1 3.37 L; FVC 3.8 L. No significant response to bronchodilators noted. Lung Volumes Total lung capacity 96% predicted Diffusion Capacity DLCO 134% predicted Comparisons none Interpretation No obstructive nor restrictive ventilatory defects identified. No significant response to bronchodilators noted. Lung volumes are normal. The patient does have a significantly elevated diffusing capacity. Need to consider exogenous exposure to carbon monoxide. If asthma is in the differential methacholine challenge may be helpful in assessing for hyperreactive airways. Otherwise clinical correlation warranted. MTDD
--- OUTSIDE RECORDS SUMMARY | 2024-11-20 14:18 | XMS_ITS | Clinical Summary ---
Author Organization [facility] Address [address] [place] [phone] Phone Care Team Providers Care Science Center Display Builder Name Role Phone Fang Salas MD Primary Care Provider [phone] Allergies Active Allergy Reactions Criticality Noted Date [...] Active Problems Problem Noted Date Diagnosed Date Chronic kidney disease stage 2 11/13/2024 Benign essential hypertension 06/24/2020 Proteinuria 06/24/2020 Renal disorder due to type 2 diabetes mellitus 0 06/24/2020 Type 2 diabetes mellitus without complication Encounters Date Type Department Care Team Description 11/13/2024 2:00 PM EDT Office Visit [facility] [address] [address] Hemant Vega MD Chronic kidney disease stage 2 (Primary Dx); Proteinuria, not otherwise specified from Last 3 Months Immunizations Immunization Administration Dates Next Due Pfizer [...] Sign Reading Time Taken Comments Blood Pressure 118/70 11/13/2024 2:11 PM EDT Pulse 66 11/13/2024 2:11 PM EDT Temperature - - Respiratory Rate - - Oxygen Saturation 97% 11/13/2024 2:11 PM EDT Inhaled Oxygen Concentration - - Weight 76.7 kg (169 lb 3.2 oz) 11/13/2024 2:11 P M EDT Height 170.2 cm (5' 7 ) 06/26/2019 12:00 PM EST Body Mass Index 26.5 06/26/2019 12:00 PM EST Plan of Treatment Upcoming Encounters Date Type Department Care Team (Late st Contact Info) Description 11/18/2025 4:30 PM EDT Office Visit [facility] [address] [address] Kitty Evangelista ARNP [address] [address] Health Maintenance Due Date Last Done Comments Hepatitis B Vaccine (1 of 3 - 19+ 3-dose series) 12/18 Pneumococcal Vaccine: 50+ Years (1 of 2 - PCV) 988 Colorectal Cancer Screening: Annual FOBT 2017 Colorectal Cancer Screening: Colonoscopy 2017 Colorectal Cancer Screening: Sigmoidoscopy 2017 Diabetes: Ophthalmology Exam 05/25/2020 Diabetes: Pedal Pulse Checked 05/25/2020 Diabetes: Sensory Foot Exam 05/25/2020 Diabetes: Visual Foot Exam 05/25/2020 Diabetes: Hemoglobin A1C 03/22/2023 12/20/2022 Influenza Vaccine (#1) 2024 Procedures Procedure Name Priority Date/Time Associated Diagnosis Comments PROTEIN / CREATININE RATIO, URINE Routine 11/13/2024 2:53 PM EDT Chronic kidney disease stage 2 Proteinuria, not otherwise specified URINE ALBUMIN / CREATININE RATIO Routine 11/13/2024 2:53 PM EDT Chronic kidney disease stage 2 Proteinuria, not otherwise specified URINALYSIS WITH MICROSCOPIC Routine 11/13/2024 2:53 PM EDT Chronic kidney disease stage 2 Proteinuria, not otherwise specified RENAL FUNCTION PANEL Routine 11/13/2024 2:53 PM EDT Chronic kidney disease stage 2 Proteinuria, not otherwise specified MICROSCOPIC EXAMINATION - DO NOT USE Routine 11/13/2024 2:53 PM EDT EXT RESULT ENTRY Routine 12/20/2022 from Last 3 Months or Most Recently Relevant to Health Maintenance Results * (ABNORMAL) Microscopic Examination (11/13/2024 2:53 PM EDT) WBC, Urine None seen 0 - 5 /hpf [facility] RBC, Urine 0-2 0 - 2 /hpf [facility] Squamous Epithelial, Urine None seen 0 - 10 /hpf [facility] Casts None seen None seen /lpf [facility] Crystals Present(A) N/A [facility] Crystal Type Calcium Oxalate N/A [facility] Bacteria, Urine None seen None seen/Few [facility] 11/13/2024 2:53 PM EDT 11/13/2024 Hemant Vega MD LAB MICROBIOLOGY - GENERAL OR DERABLES Final Result [facility] [address] [place] [address] * Protein, Total, Random Urine w/Creatinine (Protein/Creat Ratio) (11/13/2024 2:53 PM EDT) Creatinine, Ur 64.2 Not Estab. mg/dL [facility] Protein, Ur 11.1 Not Estab. mg/dL [facility] Urine Protein/Creatin ine Ratio 173 0 - 200 mg/g creat [facility] Urine Urine specimen obtained by clean catch procedure / Unknown 11/13/2024 2:53 PM EDT 11/13/2024 Hemant Vega MD LAB URINE ORDERABLES Final Re [facility] [address] [place] [address] * (ABNORMAL) Urine Albumin / Creatinine Ratio (11/13/2024 2:53 PM EDT) Albumin, Urine 34.0 Not Estab. ug/mL [facility] Albumin/Creatin ine Ratio 53(H) 0 - 29 mg/g creat [facility] Comment: Normal: 0 - 29 Moderately increased: 30 - 300 Severely increased: >300 Urine Urine specimen obtained by clean catch procedure / Unknown 11/13/2024 2:53 PM EDT 11/13/2024 us Hemant Vega MD LAB URINE ORDERABLES Final Re sult [facility] [address] [place] [address] * (ABNORMAL) Urinalysis with microscopic (11/13/2024 2:53 PM EDT) Specific Gem, Urine >=1.030(A) 1.005 - 1.030 [facility] pH Urine 5.5 5.0 - 7.5 [facility] Color, Urine Yellow Yellow [facility] Appearance Urine Clear Clear [facility] WBC Esterase Urine Negative Negative [facility] [phone] Protein, Ur Negative Negative/Tra ce [facility] Glucose, Ur 3+(A) Negative [facility] [phone] Ketones, Urine Trace(A) Negative [facility] Blood Urine Negative Negative [facility] Bilirubin Urine Negative Negative [facility] [place] Urobilinogen Urine 0.2 0.2 - 1.0 mg/dL [facility] [phone] Nitrite, Urine Negative Negative [facility] Microscopic Examination Comment [facility] Comment:Microscopic follows if indicated. Other Microsc. Observations See below: [facility] Comment:Microscopic was emre cated and was performed. Urine Urine specimen obtained by clean catch procedure / Unknown 11/13/2024 2:53 PM EDT 11/13/2024 us Hemant Vega MD LAB URINE ORDERABLES Final Re sult [facility] [address] [place] [address] * (ABNORMAL) Renal Function Panel (11/13/2024 2:53 PM EDT) Glucose 203(H) 70 - 99 mg/dL [facility] BUN 21 6 - 24 mg/dL [facility] Creatinine 0.88 0.76 - 1.27 mg/dL [facility] eGFR CKD-EPI CR 2020 102 >59 mL/min/1.7 3 [facility] BUN/Creatinine Ratio 24(H) 9 - 20 [facility] Sodium 141 134 - 144 mmol/L [facility] Potassium 3.8 3.5 - 5.2 mmol/L [facility] Chloride 100 96 - 106 mmol/L [facility] Bicarbonate (CO2) 22 20 - 29 mmol/L [facility] Calcium 9.9 8.7 - 10.2 mg/dL [facility] Phosphorus 3.3 2.8 - 4.1 mg/dL [facility] Albumin 4.9 3.8 - 4.9 g/dL [facility] Blood Venous blood / Unknown 11/13/2024 2:53 PM EDT 11/13/2024 Hemant Vega MD LAB BLOOD ORDERABLES Final Re sult [facility] [place] [address] [place] [address] * (ABNORMAL) EXT RESULT ENTRY (12/20/2022) WBC [...] Most Recently Relevant to Health Maintenance Insurance [facility] ([id number]) [facility] ([id number]) Care Teams Science Center Display Builder Relationship Specialty Start Date End Date Fang Salas MD [address] PCP - General 05/04/20
--- OUTSIDE RECORDS SUMMARY | 2024-11-20 14:18 | XMS_ITS | Clinical Summary ---
Author Organization [employer] Address [address] [facility] 7t [place] [address] Care Team Providers Care Aircraft Maintenance Instructor Name Role Phone Unavailable Primary Care Provider [...] patient's age to complete this topic Insurance [id number] ONE [facility] < 63 [place] [id number]
--- OUTSIDE RECORDS SUMMARY | 2024-11-20 14:19 | XMS_ITS | Clinical Summary ---
Author Organization [facility] Address [address] [place] [phone] Phone Care Team Providers Care Bench Worker Name Role Phone Fang Salas MD Primary Care Provid er Social History Tobacco Use Types Packs/Day Years Used Date Smoking Tobacco: Never Assessed Education Answer Date Recorded Are you interested in more education? Not on caryl e 08/20/2022 Are you concerned about learning? Not on file 08/20/2022 No 08/20/2022 No 08/20/2022 Digital Access Answer Date Recorded No 09/20/2022 No 09/20/2022 Reliable internet access at home? Not on file 09/20/2022 Device with a working camera? Not on file Sex and Gender Information Value Date Recorded Sex Assigned at Not on file Legal Sex Male 11:24 AM EST Gender Identity Not on file Sexual Orientation Not on file Plan of Treatment Health Maintenance Due Date Last Done Comments Adult Td,Tdap Booster 1968 LIPID PANEL 1968 DEPRESSION SCREENING 1980 SMOKING Hx and SMOKELESS TOB ACCO SCREENING 1981 HEPATITIS C SCREENING 1986 HIV ONE-TIME SCREENING (18-6 5 YEARS) 1986 COLOGUARD 2013 COLONOSCOPY 2013 COLORECTAL CANCER SCREENING 2013 FIT TEST 2013 FOBT 2013 SIGMOIDOSCOPY 2013 VIRTUAL COLONOSCOPY 2013 PNEUMOCOCCAL VACCINES (50+ y ears) (1 of 1 - PCV) 2018 ZOSTER VACCINES (1 of 2) 2018 COVID-19 VACCINE ( - 2023-2 5 season) 2023 HEPATITIS A VACCINES Aged Out No long er eligible based on patient's age to complete this topic HIB VACCINES Aged Out No longer eligi ble based on patient's age to complete this topic MENINGOCOCCAL VACCINES (ACWY) Aged Out No longer eligible based on patient's age to complete this topic MENINGOCOCCAL VACCINES (B) Aged Out N o longer eligible based on patient's age to complete this topic Medical Devices Not on file Insurance MEDICARE PART A & B MEDICARE PART A & B ONE CARE MEDICARE REPLACEMENT [place] [id number] MEDICARE PART A & B MEDICARE PART A & B MEDICARE PART A & B MEDICARE PART A & B MEDICARE PART A & B MEDICARE PART A & B MEDICARE PART A & B MEDICARE PART A & B Care Teams Bench Worker Relationship Specialty Start Date End Date Fang Salas MD [address] [place] [address] PCP - General Internal Medicine 12/03/21 Additional Source Comments The information contained in this document represents components of the legal health record. It is not the complete legal health record.[facility]
== END 2024-11-20 13:40 | disposition home or self-care (01) ==
LOC: HO.RESP 13:39
PROVIDERS: PCP Internal Medicine; Visit Provider Internal Medicine
DX: R05.9 Cough, unspecified (principal); R06.00 Dyspnea, unspecified

== ENCOUNTER 2024-11-21 13:45 | Outpatient (AMB) | payer OTHER, SELFPAY ==
--- OUTSIDE RECORDS SUMMARY | 2024-11-21 13:58 | XMS_ITS | Clinical Summary ---
Author Organization [facility] Address [address] [place] [phone] Phone Care Team Providers Care Toll Collector Name Role Phone Fang Salas MD Primary Care Provider [phone] Allergies Active Allergy Reactions Criticality Noted Date [...] Office Visit [facility] [address] [address] Hemant Vega MD Chronic kidney [...] Visit [facility] [address] [address] Kitty Evangelista ARNP [address] [address] Health Maintenance Due Date Last [...] None seen 0 - 5 /hpf [facility] RBC, Urine 0-2 0 - 2 /hpf [facility] Squamous Epithelial, Urine None seen 0 - 10 /hpf [facility] Casts None seen None seen /lpf [facility] Crystals Present(A) N/A [facility] Crystal Type Calcium Oxalate N/A [facility] Bacteria, Urine None seen None seen/Few [facility] 11/13/2024 2:53 PM EDT 11/13/2024 Hemant Vega MD LAB MICROBIOLOGY - GENERAL OR DERABLES Final Result [facility] [address] [place] [address] * Protein, Total, Random Urine w/Creatinine (Protein/Creat Ratio) (11/13/2024 2:53 PM EDT) Creatinine, Ur 64.2 Not Estab. mg/dL [facility] Protein, Ur 11.1 Not Estab. mg/dL [facility] Urine Protein/Creatin ine Ratio 173 0 - 200 mg/g creat [facility] Urine Urine specimen obtained by clean catch procedure / Unknown 11/13/2024 2:53 PM EDT 11/13/2024 Hemant Vega MD LAB URINE ORDERABLES Final Re sult [facility] [address] [place] [address] * (ABNORMAL) Urine Albumin / Creatinine Ratio (11/13/2024 2:53 PM EDT) Albumin, Urine 34.0 Not Estab. ug/mL [facility] Albumin/Creatin ine Ratio 53(H) 0 - 29 mg/g creat [facility] Comment: Normal: 0 - 29 Moderately increased: 30 - 300 Severely increased: >300 Urine Urine specimen obtained by clean catch procedure / Unknown 11/13/2024 2:53 PM EDT 11/13/2024 us Hemant Vega MD LAB URINE ORDERABLES Final Re sult [facility] [address] [place] [address] * (ABNORMAL) Urinalysis with microscopic (11/13/2024 2:53 PM EDT) Specific [place], Urine >=1.030(A) 1.005 - 1.030 [facility] [phone] pH Urine 5.5 5.0 - 7.5 [facility] Color, Urine Yellow Yellow [facility] Appearance Urine Clear Clear [facility] [place] WBC Esterase Urine Negative Negative [facility] Protein, Ur Negative Negative/Tra ce [facility] Glucose, Ur 3+(A) Negative [facility] Ketones, Urine Trace(A) Negative [facility] Blood Urine Negative Negative [facility] Bilirubin Urine Negative Negative [facility] [place] Urobilinogen Urine 0.2 0.2 - 1.0 mg/dL [facility] Nitrite, Urine Negative Negative [facility] [phone] Microscopic Examination Comment [facility] [phone] Comment:Microscopic follows if indicated. Other Microsc. Observations See below: [facility] Comment:Microscopic was emre cated and was performed. Urine Urine specimen obtained by clean catch procedure / Unknown 11/13/2024 2:53 PM EDT 11/13/2024 us Hemant Vega MD LAB URINE ORDERABLES Final Re sult [facility] [address] [place] [address] * (ABNORMAL) Renal Function Panel (11/13/2024 2:53 PM EDT) Glucose 203(H) 70 - 99 mg/dL [facility] BUN 21 6 - 24 mg/dL [facility] Creatinine 0.88 0.76 - 1.27 mg/dL [facility] eGFR CKD-EPI CR 2020 102 >59 mL/min/1.7 3 [facility] BUN/Creatinine Ratio 24(H) 9 - 20 [facility] Sodium 141 134 - 144 mmol/L [facility] Potassium 3.8 3.5 - 5.2 mmol/L [facility] Chloride 100 96 - 106 mmol/L [facility] Bicarbonate (CO2) 22 20 - 29 mmol/L [facility] Calcium 9.9 8.7 - 10.2 mg/dL [facility] Phosphorus 3.3 2.8 - 4.1 mg/dL [facility] Albumin 4.9 3.8 - 4.9 g/dL [facility] Blood Venous blood / Unknown 11/13/2024 2:53 PM EDT 11/13/2024 Hemant Vega MD LAB BLOOD ORDERABLES Final Re sult [facility] [address] [place] [address] * (ABNORMAL) EXT RESULT ENTRY (12/20/2022) WBC [...] Most Recently Relevant to Health Maintenance Insurance [facility] ([id number]) [facility] ([id number]) Care Teams Toll Collector Relationship Specialty Start Date End Date Fang Salas MD [address] PCP - General 05/04/20
--- OUTSIDE RECORDS SUMMARY | 2024-11-21 13:58 | XMS_ITS | Clinical Summary ---
Author Organization [employer] Address [address] [facility] 7t [place] [address] Care Team Providers Care Data Support Specialist Name Role Phone Unavailable Primary Care Provider [...] patient's age to complete this topic Insurance [id number] < 63 [place] [id number]
--- OUTSIDE RECORDS SUMMARY | 2024-11-21 13:58 | XMS_ITS | Clinical Summary ---
Author Organization [facility] Address [address] [place] [phone] Phone Care Team Providers Care Machine Set Up Operator Name Role Phone Fang Salas MD [...] B ONE CARE MEDICARE REPLACEMENT [place] [id number] MEDICARE PART A & B Member Subscriber Plan / Payer (Ef fective 2021-Present) Name:Mirian Reji Member ID:[id number] Relation to Subscriber:Self Name:Reji Vela Subscriber ID:[id number] Payer ID:[id number] Group ID:Not on file Type:Medicare Address: [facility] [employer] [facility] [address] [place] [address] MEDICARE PART A & B MEDICARE PART A & B MEDICARE PART A & B MEDICARE PART A & B MEDICARE PART A & B MEDICARE PART A & B MEDICARE PART A & B Care Teams Machine Set Up Operator Relationship Specialty Start Date End Date Fang Salas MD [address] [place] [address] PCP - General Internal Medicine 12/03/21 Additional Source Comments The information contained in this document represents components of the legal health record. It is not the complete legal health record.[facility]
[2024-11-21 14:27] VITALS: BP 118/78; PULSE 77; O2SAT 98; BMI 27.0
--- NOTE | 2024-11-21 14:27 | MHC.OFFVIS ---
Vital Signs 11/21/24 14:27 Height 5 ft 6 in Weight 167 lb 0.5 oz BMI 27.0 BP 118/78 Blood Pressure Location Lt brachial Position Sitting Pulse 77 Pulse Source Pulse Oximeter Pulse Oximetry (%) 98 Oxygen Delivery Method Room Air Intake Visit Reasons: cough Intake Note: pt is here for follow up of pft from yesterday and states his breathing is okay, pt needs a refill on albuterol for nebulizer and also a nasal spray but not sure which one you feel would be best. Transition Social Worker Required: No Allergies dicyclomine (Bentyl) Allergy (Intermediate, Verified 11/21/24 14:30) pruritus finasteride Allergy (Intermediate, Verified 11/21/24 14:30) rash hydrocodone (Vicodin) Allergy (Intermediate, Verified 11/21/24 14:30) rash lisinopril Allergy (Intermediate, Verified 11/21/24 14:30) myalgias morphine Allergy (Intermediate, Verified 11/21/24 14:30) unconscious HPI HPI cough: Details: THIS 53 YEARS OLD GENTLEMAN IS HERE FOR FOLLOW-UP AFTER HIS CHEST X-RAY AND PFTS. TODAY HE STATES THAT HE DOES NOT HAVE ANY RESIDUAL COUGH. HE WALKS AROUND WITH HIS CANE AT A SLOW PACE AND DURING THIS WALKING DOES NOT HAVE ANY SHORTNESS OF BREATH. HE ALSO DOES NOT HAVE ANY WHEEZING. HE CLAIMS THAT HE DOES NOT SMOKE AT ALL. THE APARTMENT IN WHICH HE LIVES NOW DOES NOT HAVE ANY MOLD OR EXCESSIVE DIRT OR SMOKE HE IS CHRONICALLY DISABLED MAINLY BECAUSE OF LOW BACK PAIN AND WEAKNESS OF THE RIGHT LOWER EXTREMITY, HE CAN WALK OKAY WITH A CANE. [facility] Medical History Allergic rhinitis Chest pain Umbilical hernia Candidal intertrigo Transaminitis Lumbar degenerative disc disease PALOMA (generalized anxiety disorder) Mild recurrent major depression Oral lesion Cough Hiatal hernia Hemorrhoids BPH (benign prostatic hyperplasia) Depression with anxiety Chronic leg pain GERD (gastroesophageal reflux disease) Dyslipidemia Essential hypertension Diabetes mellitus Surgical History History of colonoscopy History of removal of cyst History of inguinal hernia repair History of lumbar fusion Family History Father CVD (cardiovascular disease) Hypertension Mother CVD (cardiovascular disease) Hypertension Diabetes Sister Breast cancer Brother Acute appendicitis Diabetes Hypertension Social History Household Members: Friend(s) Housing: Apartment Alcohol intake: never Patient Tobacco Use Status: Never used Tobacco e-Cigarette/Vaping Use: Never Used Second Hand Smoke Exposure: No service: No Current occupational status: disabled Cognitive needs: Yes Hearing needs: No Vision needs: No Review of Systems Const All systems reviewed & are unremarkable except as noted in HPI and below Eyes Reports no additional complaints ENT Reports nasal congestion (CONTROLLED AT THIS TIME) Card Denies chest pain and Reports dyspnea on exertion (MILD) Resp Reports as per HPI and Reports dyspnea on exertion (MILD) GI Reports heartburn (GERD SYMPTOMS CONTROLLED WITH OMEPRAZOLE) Reports no additional complaints Musc Reports myalgias (MILD) Skin/Breast Reports system reviewed and no additional complaints, except as documented Neuro Reports no additional complaints Psych Reports depression (RECURRENT, CONTROLLED AT THIS TIME) Endo Reports other (DIABETES MELLITUS) Stan/Lymph Reports no additional complaints Aller/Immun Reports no additional complaints Physical Exam Vital Signs: Last Vital Signs Pulse 77 11/21/24 14:27 BP 118/78 11/21/24 14:27 Pulse Ox 98 11/21/24 14:27 Oxygen Delivery Method Room Air 11/21/24 14:27 BMI result Body Mass Index 27.0 Const General: comfortable, no acute distress, alert and awake Orientation/consciousness: patient oriented x3 HEENT Head: Yes normal to inspection General nose exam: No nasal polyps present and No nasal discharge present Face and sinus: Yes sinuses nontender Mouth: oropharynx normal Throat: Yes posterior oropharynx normal Eyes General: appearance normal, both eyes and all related structures Neck Neck: Yes normal visual inspection, Yes no lymphadenopathy, Yes trachea midline and Yes no JVD Thyroid: Thyroid normal Chest Chest palpation & inspection: normal inspection of the chest, normal palpation of entire chest wall and no tenderness Resp Other: PERCUSSION NOTE IS RESONANT, BREATH SOUNDS ARE EQUAL ON BOTH SIDES. NO WHEEZES OR RHONCHI ARE HEARD Cardio Palpation: normal PMI Rate: regular rate Rhythm: regular rhythm Heart sounds: no gallops and no murmurs Peripheral pulses: Peripheral pulses 2+ throughout GI Palpation (GI): Soft to palpation, nontender, No hepatosplenomegaly present and no masses Auscultation: normal bowel sounds Back/Spine/Pelvis Thoracic/Lumbar Spine: thoracic and lumbar spine normal to inspection and thoraco-lumbar ROM limited Skin General skin exam: no rashes or lesions noted Neuro General: patient oriented x3 and no focal motor deficits Cranial nerves: Yes CN's II-XII intact bilaterally Extrem General: Yes normal to inspection, Yes no clubbing, cyanosis or edema and Yes no calf tenderness Psych Appearance: grossly normal and well kempt Speech and movement: Normal speech and movement present Results Reviewed Results Reviewed: CHEST X RAY , SHOWS SCOLIOSIS, MILD , VASCULAR CLIPS IN THE LEFT AXILLARY REGION, AND MINIMAL RETICULAR PATTERN, WITH A NONSPECIFIC OPACITY IN THE RIGHT PERIHILAR REGION PULMONARY FUNCTION TEST ON 11/20. NO EVIDENCE OF OBSTRUCTIVE OR RESTRICTIVE PULMONARY DISORDER Assessment & Plan Assessment & Plan (1) Cough: Comment: He has very minimal cough and it is not bothersome at present. DENIES SHORTNESS OF BREATH OR WHEEZING Code(s): R05 - Cough Category: Medical Plan: EXPLAINED TO HIM THE RESULTS OF THE PULMONARY FUNCTION TEST, AND CHEST X-RAY FINDINGS. REASSURED, WE MAY REPEAT CHEST X-RAY IN 1 YEAR. DOES NOT NEED ANY MEDICATION. REVISIT 1 YEAR (2) Dyspnea: Comment: DYSPNEA ON EXERTION, MILD, NONSPECIFIC,, MAY HAVE BEEN TRIGGERED BY A HIS COVID INFECTION before 2022 . CHEST X-RAY FINDINGS EXPLAINED TO HIM . ONLY MINIMAL NONSPECIFIC FINDINGS OF RETICULAR MARKINGS AND A VAGUE DENSITY IN RIGHT PERIHILAR AREA. PULMONARY FUNCTION TEST IS ESSENTIALLY NORMAL. Code(s): R06.00 - Dyspnea, unspecified Category: Medical Plan: THE RESULTS ARE EXPLAINED AND HE IS REASSURED (3) Allergic rhinitis: Comment: MILD, WELL CONTROLLED AT THIS TIME. CONTINUE CURRENT TREATMENT. Code(s): J30.9 - Allergic rhinitis, unspecified Category: Medical Plan: HIS SYMPTOMS ARE MINIMAL AT THIS TIME AND HE DOES NOT NEED ANY MEDICATION. Coding Level of Care Code Est Pt Level 3 (98390) Diagnoses Cough R05 Dyspnea R06.00 Allergic rhinitis J30.9
== END 2024-11-21 15:44 | disposition home or self-care (01) ==
LOC: HO.HPS 13:46
PROVIDERS: PCP Internal Medicine; Visit Provider Internal Medicine
DX: R05.9 Cough, unspecified (principal); R06.00 Dyspnea, unspecified; J30.9 Allergic rhinitis, unspecified
CPT/HCPCS: 99213

== ENCOUNTER → 2024-11-21 13:45 | Outpatient (BNVA) | payer OTHER, SELFPAY | PROVIDERS: PCP Internal Medicine; Visit Provider Internal Medicine | DX: R05.9 Cough, unspecified (principal); R06.00 Dyspnea, unspecified; J30.9 Allergic rhinitis, unspecified | CPT/HCPCS: 99212 ==

== ENCOUNTER 2024-11-27 12:38 | Outpatient (AMB) | payer OTHER, SELFPAY ==
[2024-11-27 12:51] VITALS: BP 116/74; PULSE 86; TEMP 37.2; O2SAT 97; BMI 27.0
--- NOTE | 2024-11-27 12:51 | MHC.OFFWIV ---
Intake Vital Signs 11/27/24 12:51 Height 5 ft 6 in Weight 167 lb 8 oz BMI 27.0 BP 116/74 Blood Pressure Location Rt brachial Position Sitting Pulse 86 Pulse Source Pulse Oximeter Temp 98.9 F Temp Source Oral Pulse Oximetry (%) 97 Oxygen Delivery Method Room Air Intake Visit Reasons: EP Pain, burning on RT thumb Patient Tobacco Use Status: Never used Tobacco Allergies dicyclomine (Bentyl) Allergy (Intermediate, Verified 11/27/24 12:55) pruritus finasteride Allergy (Intermediate, Verified 11/27/24 12:55) rash hydrocodone (Vicodin) Allergy (Intermediate, Verified 11/27/24 12:55) rash lisinopril Allergy (Intermediate, Verified 11/27/24 12:55) myalgias morphine Allergy (Intermediate, Verified 11/27/24 12:55) unconscious Medication List - Last Reconciled 11/27/24 by Tami Ramos PA-C acetaminophen 1,000 mg (2 x 500 mg) PO Q8H PRN albuterol sulfate 2.5 mg (3 mL) inhalation QID PRN ascorbate calcium (vitamin C) 500 mg PO BID atorvastatin 40 mg PO BEDTIME 90 days azelastine 1 spray intranasal BID betamethasone dipropionate 0.05% 1 appl topical DAILY PRN 2 weeks blood sugar diagnostic As directed blood-glucose meter As directed blood-glucose sensor (FreeStyle Eduardo 3 Plus Sensor device) As directed bupropion HCl XL 300 mg PO DAILY cetirizine 10 mg PO QAM [chair lift As directed] cholecalciferol (vitamin D3) 25 mcg PO DAILY 90 days clonazepam mg PO clotrimazole-betamethasone 1-0.05 % 1 appl topical BID 14 days docusate sodium 200 mg (2 x 100 mg) PO .qhs empagliflozin (Jardiance) 10 mg PO DAILY 90 days escitalopram oxalate 5 mg PO DAILY flash glucose scanning reader (CertificationPointStyle Eduardo 14 Day Jal) As directed fluticasone propionate 50 mcg/actuation 1 spray intranasal Q12H [Freestyle Eduardo 3 glucometer As directed] [FreeStyle Eduardo 3 plus reader As directed] gabapentin 100 mg PO BEDTIME hydrochlorothiazide 25 mg PO DAILY 90 days hydroxyzine HCl 25 mg PO TID PRN 30 days ibuprofen 600 mg PO Q6H PRN lancets (OneTouch Delica Lancets) As directed linaclotide (Linzess) 145 mcg PO DAILY linagliptin (Tradjenta) 5 mg PO DAILY loperamide (Imodium A-D) 2 mg PO Q6H PRN 2 days melatonin 5 - 10 mg PO BEDTIME metformin 1,000 mg PO BID multivitamin 1 tab PO DAILY nebulizers (AeroEclipse II Nebulizer) As directed nystatin 1 appl topical QID polymyxin B sulf-trimethoprim 10,000 unit- 1 mg/mL 1 drp ophthalmic (eye) QID 7 days terazosin 10 mg PO DAILY 90 days Do you need a note to return to daycare/school/sports/work: No HPI HPI Comments History of Present Illness Details History of Present Illness - The patient is a 53-year-old male presenting with nerve pain in the right thumb. - Reports burning and numb sensation in the thumb, starting two weeks ago without known injury. - Describes pain as burning, worsened by squeezing the hand. - Has not used any medications for pain or inflammation. - History of bee sting on the finger, previously treated with antibiotics last November. - He denies injury or fall. - He is right hand dominant. Physical Exam General: Cooperative, healthy appearing, comfortable, no acute distress and well developed Respiratory: Normal respiratory effort and able to speak in complete sentences. Clear to auscultation bilaterally Cardiovascular: Regular rate and rhythm. Normal S1 and S2. Pulses are 2+ on the UE. Cap refill is less than 3 seconds. Skin: No rashes or lesions noted. No erythema noted. Neuro: Sensation intact on the right thumb. Extremities: Normal to inspection, no swelling noted. FROM of the right thumb. No TTP of the right DIP, MCP of the right thumb. Hand shutdown planner is intact. FROM of the right wrist and elbow. Finklestein negative on the right. Patient was informed and verbally consented to the use of an ambient scribe for clinic note documentation during this visit. [facility] Medical History Allergic rhinitis Chest pain Umbilical hernia Candidal intertrigo Transaminitis Lumbar degenerative disc disease PALOMA (generalized anxiety disorder) Mild recurrent major depression Oral lesion Cough Hiatal hernia Hemorrhoids BPH (benign prostatic hyperplasia) Depression with anxiety Chronic leg pain GERD (gastroesophageal reflux disease) Dyslipidemia Essential hypertension Diabetes mellitus Surgical History History of colonoscopy History of removal of cyst History of inguinal hernia repair History of lumbar fusion Family History Father CVD (cardiovascular disease) Hypertension Mother CVD (cardiovascular disease) Hypertension Diabetes Sister Breast cancer Brother Acute appendicitis Diabetes Hypertension Social History Household Members: Friend(s) Housing: Apartment Alcohol intake: never Patient Tobacco Use Status: Never used Tobacco e-Cigarette/Vaping Use: Never Used Second Hand Smoke Exposure: No service: No Current occupational status: disabled Cognitive needs: Yes Hearing needs: No Vision needs: No Review of Systems Const All systems reviewed & are unremarkable except as noted in HPI and below Physical Exam Vital Signs: Last Vital Signs Temp 98.9 F 11/27/24 12:51 Pulse 86 11/27/24 12:51 BP 116/74 11/27/24 12:51 Pulse Ox 97 11/27/24 12:51 Oxygen Delivery Method Room Air 11/27/24 12:51 BMI result Body Mass Index 27.0 Assessment & Plan Assessment & Plan (1) Numbness of right thumb: Code(s): R20.0 - Anesthesia of skin Plan Most likely radiculopathy vs neuropathy vs tendonititis, unlikely carpal tunnel Plan - Initiate gabapentin for nerve pain management. - Monitor response to gabapentin and adjust dosage as needed. - Consider referral to a hand specialist if symptoms persist. - Possible EMG study if no improvement is noted. Medications: New gabapentin 100 mg PO BEDTIME 30 caps 0RF Coding Level of Care Code Est Pt Level 3 (43482) Diagnoses Numbness of right thumb R20.0
--- OUTSIDE RECORDS SUMMARY | 2024-11-27 13:10 | XMS_ITS | Clinical Summary ---
Author Organization [employer] Address [address] [place] [address] Care Team Providers Care Stevedoring Supervisor Name Role Phone Unavailable Primary Care Provider [...] patient's age to complete this topic Insurance [id number] < 65 [place] [id number]
--- OUTSIDE RECORDS SUMMARY | 2024-11-27 13:10 | XMS_ITS | Clinical Summary ---
Author Organization [facility] Address [address] [place] [phone] Phone Care Team Providers Care Cafe Aide Name Role Phone Fang Salas MD Primary [...] B ONE CARE MEDICARE REPLACEMENT [place] [id number] MEDICARE PART A & B MEDICARE PART A & B MEDICARE PART A & B MEDICARE PART A & B MEDICARE PART A & B MEDICARE PART A & B MEDICARE PART A & B MEDICARE PART A & B Care Teams Cafe Aide Relationship Specialty Start Date End Date Fang Salas MD [address] [place] [address] PCP - General Internal Medicine 12/03/21 Additional Source Comments The information contained in this document represents components of the legal health record. It is not the complete legal health record.[facility]
--- OUTSIDE RECORDS SUMMARY | 2024-11-27 13:10 | XMS_ITS | Clinical Summary ---
Author Organization [facility] Address [address] [place] [phone] Phone Care Team Providers Care Activity Manager Name Role Phone Fang Salas MD Primary Care Provider [phone] Allergies Active Allergy Reactions Criticality Noted Date [...] Office Visit [facility] [address] [address] Hemant Vega MD Chronic kidney [...] Visit [facility] [address] [address] Kitty Evangelista ARNP [address] [address] Health Maintenance Due Date Last [...] None seen 0 - 5 /hpf [facility] RBC, Urine 0-2 0 - 2 /hpf [facility] Squamous Epithelial, Urine None seen 0 - 10 /hpf [facility] Casts None seen None seen /lpf [facility] Crystals Present(A) N/A [facility] Crystal Type Calcium Oxalate N/A [facility] Bacteria, Urine None seen None seen/Few [facility] 11/13/2024 2:53 PM EDT 11/13/2024 Hemant Vega MD LAB MICROBIOLOGY - GENERAL OR DERABLES Final Result [facility] [address] [place] [address] * Protein, Total, Random Urine w/Creatinine (Protein/Creat Ratio) (11/13/2024 2:53 PM EDT) Creatinine, Ur 64.2 Not Estab. mg/dL [facility] Protein, Ur 11.1 Not Estab. mg/dL [facility] Urine Protein/Creatin ine Ratio 173 0 - 200 mg/g creat [facility] Urine Urine specimen obtained by clean catch procedure / Unknown 11/13/2024 2:53 PM EDT 11/13/2024 Hemant Vega MD LAB URINE ORDERABLES [facility] [address] [place] [address] * (ABNORMAL) Urine Albumin / Creatinine Ratio (11/13/2024 2:53 PM EDT) Albumin, Urine 34.0 Not Estab. ug/mL [facility] Albumin/Creatin ine Ratio 53(H) 0 - 29 mg/g creat [facility] Comment: Normal: 0 - 29 Moderately increased: 30 - 300 Severely increased: >300 Urine Urine specimen obtained by clean catch procedure / Unknown 11/13/2024 2:53 PM EDT 11/13/2024 us Hemant Vega MD LAB URINE ORDERABLES Final Re sult [facility] [address] [place] [address] * (ABNORMAL) Urinalysis with microscopic (11/13/2024 2:53 PM EDT) Specific [place], Urine >=1.030(A) 1.005 - 1.030 [facility] pH Urine 5.5 5.0 - 7.5 [facility] Color, Urine Yellow Yellow [facility] Appearance Urine Clear Clear [facility] [phone] WBC Esterase Urine Negative Negative [facility] Protein, Ur Negative Negative/Tra ce [facility] Glucose, Ur 3+(A) Negative [facility] Ketones, Urine Trace(A) Negative [facility] Blood Urine Negative Negative [facility] Bilirubin Urine Negative Negative [facility] Urobilinogen Urine 0.2 0.2 - 1.0 mg/dL [facility] Nitrite, Urine Negative Negative [facility] Microscopic Examination Comment [facility] Comment:Microscopic follows if indicated. Other Microsc. Observations See below: [facility] Comment:Microscopic was emre cated and was performed. Urine Urine specimen obtained by clean catch procedure / Unknown 11/13/2024 2:53 PM EDT 11/13/2024 us Hemant Vega MD LAB URINE ORDERABLES [facility] [address] [place] [address] * (ABNORMAL) Renal Function Panel (11/13/2024 2:53 PM EDT) Glucose 203(H) 70 - 99 mg/dL [facility] BUN 21 6 - 24 mg/dL [facility] Creatinine 0.88 0.76 - 1.27 mg/dL [facility] eGFR CKD-EPI CR 2020 102 >59 mL/min/1.7 3 [facility] BUN/Creatinine Ratio 24(H) 9 - 20 [facility] Sodium 141 134 - 144 mmol/L [facility] Potassium 3.8 3.5 - 5.2 mmol/L [facility] Chloride 100 96 - 106 mmol/L [facility] Bicarbonate (CO2) 22 20 - 29 mmol/L [facility] Calcium 9.9 8.7 - 10.2 mg/dL [facility] Phosphorus 3.3 2.8 - 4.1 mg/dL [facility] Albumin 4.9 3.8 - 4.9 g/dL [facility] Blood Venous blood / Unknown 11/13/2024 2:53 PM EDT 11/13/2024 Hemant Vega MD LAB BLOOD ORDERABLES Final Re sult [facility] [address] [place] [address] * (ABNORMAL) EXT RESULT ENTRY (12/20/2022) WBC [...] Most Recently Relevant to Health Maintenance Insurance [facility] ([id number]) [facility] ([id number]) Care Teams Activity Manager Relationship Specialty Start Date End Date Fang Salas MD [address] PCP - General 05/04/20
== END 2024-11-27 13:28 | disposition home or self-care (01) ==
PROVIDERS: PCP Internal Medicine; Visit Provider Physician Assistant Medical
DX: R20.0 Anesthesia of skin (principal)

== ENCOUNTER → 2024-11-27 12:38 | Outpatient (BNVA) | payer OTHER, SELFPAY | PROVIDERS: PCP Internal Medicine; Visit Provider Physician Assistant Medical | DX: R20.0 Anesthesia of skin (principal); M79.644 Pain in right finger(s) | CPT/HCPCS: 99212 ==

== ENCOUNTER 2025-02-11 16:02 | Outpatient (AMB) | payer OTHER, SELFPAY ==
[2025-02-11 16:11] VITALS: BP 124/80; PULSE 91; TEMP 37.2; O2SAT 97; BMI 27.1
--- NOTE | 2025-02-11 16:11 | MHC.OFFWIV ---
Intake Vital Signs 02/11/25 16:11 Height 5 ft 6 in Weight 168 lb BMI 27.1 BP 124/80 Blood Pressure Location Rt brachial Position Sitting Pulse 91 Pulse Source Pulse Oximeter Temp 99.0 F Temp Source Oral Pulse Oximetry (%) 97 Oxygen Delivery Method Room Air Intake Visit Reasons: EP LT foot reddish/yellowish swelling with pain Intake Note: pt presents with mildly painful blister to left 4th toenail x2 days, having mole excised from penis for biopsy tomorrow Patient Tobacco Use Status: Never used Tobacco Allergies dicyclomine (Bentyl) Allergy (Intermediate, Verified 02/11/25 16:14) pruritus finasteride Allergy (Intermediate, Verified 02/11/25 16:14) rash hydrocodone (Vicodin) Allergy (Intermediate, Verified 02/11/25 16:14) rash lisinopril Allergy (Intermediate, Verified 02/11/25 16:14) myalgias morphine Allergy (Intermediate, Verified 02/11/25 16:14) unconscious Do you need a note to return to daycare/school/sports/work: No HPI HPI Comments History of Present Illness Details History of Present Illness - The patient is a 54-year-old male presenting with a blister on the left foot. - The blister started as redness on the skin approximately five days ago and progressed to a yellow spot resembling a blister. - The patient noticed the blister two days ago, with no discharge or bleeding reported. - The blister is sensitive to touch, and the patient has not attempted to drain it due to his diabetic condition. - The patient has a history of diabetes mellitus, which is relevant to the current foot condition. - He is scheduled for surgery tomorrow. - He denies fever, chills, discharge, bleeding, joint pain, foot pain, numbness or tingling. Physical Exam General: Cooperative, healthy appearing, comfortable, no acute distress and well developed Orientation: Patient oriented x3 Limitations: No limitations Respiratory: Normal respiratory effort and able to speak in complete sentences. Clear to auscultation biilaterally Cardiovascular: Regular rate and rhythm. Normal S1 and S2. Pulses are 2+ on the LE. Skin: Small raised pustule at the base of the 4th nailbed with erythema noted. No warmth noted. No streaking noted. Neuro: Sensation intact. Extremities: TTP of the distal aspect of the 4th toe on the left. Ambulates with steady gait. Strength is 5/5 on the LE bilaterally. Patient was informed and verbally consented to the use of an ambient scribe for clinic note documentation during this visit. [facility] Medical History Allergic rhinitis Chest pain Umbilical hernia Candidal intertrigo Transaminitis Lumbar degenerative disc disease PALOMA (generalized anxiety disorder) Mild recurrent major depression Oral lesion Cough Hiatal hernia Hemorrhoids BPH (benign prostatic hyperplasia) Depression with anxiety Chronic leg pain GERD (gastroesophageal reflux disease) Dyslipidemia Essential hypertension Diabetes mellitus Surgical History History of colonoscopy History of removal of cyst History of inguinal hernia repair History of lumbar fusion Family History Father CVD (cardiovascular disease) Hypertension Mother CVD (cardiovascular disease) Hypertension Diabetes Sister Breast cancer Brother Acute appendicitis Diabetes Hypertension Social History Household Members: Friend(s) Housing: Apartment Alcohol intake: never Patient Tobacco Use Status: Never used Tobacco e-Cigarette/Vaping Use: Never Used Second Hand Smoke Exposure: No service: No Current occupational status: disabled Cognitive needs: Yes Hearing needs: No Vision needs: No Physical Exam Vital Signs: Last Vital Signs Temp 99.0 F 02/11/25 16:11 Pulse 91 02/11/25 16:11 BP 124/80 02/11/25 16:11 Pulse Ox 97 02/11/25 16:11 Oxygen Delivery Method Room Air 02/11/25 16:11 BMI result Body Mass Index 27.1 Office Procedures I&D Drain Details: Cleaned the wound with alcohol. 18 gauge needle used to derooof the blister. Small scant amt of blood and pus expressed. Wound cleaned with saline. Bandaid applied. Procedure was well tolerated. No complications. [id number] of Skin Abscess, simple All charges added?: Procedure code (CPT) selection complete Assessment & Plan Assessment & Plan (1) Paronychia of fourth toe: Code(s): L03.039 - Cellulitis of unspecified toe Plan Most likely blister vs paronychia I&D done in the office plan - Initiate oral antibiotics and topical antibiotic ointment to manage infection risk. - Advise warm soaks to facilitate drainage of pus from the blister. - Monitor for signs of systemic infection, such as fever. - Continue monitoring blood glucose levels to manage diabetes effectively. - Advised patient to inform surgeon of his visit today - follow up with PCP Orders: Orders AMB Incision & Drainage Today L03.039 - Cellulitis of unspecified toe Medications: New mupirocin 2% 1 appl topical TID 22 grams 0RF doxycycline hyclate 100 mg PO BID 14 tabs 0RF Coding Level of Care Code Est Pt Level 3 (55664) Diagnoses Paronychia of fourth toe L03.039 CPT Codes I&D Drain - Drain 1: 05339-Kprwwhtw of Skin Abscess, simple ([id number])
--- OUTSIDE RECORDS SUMMARY | 2025-02-11 20:57 | XMS_ITS | Clinical Summary ---
Author Organization [employer] Address [address] [address] [place] [address] Care Team Providers Care Stage Builder Name Role Phone Unavailable Primary Care Provider [...] 2 - PCV) 02/14/2020 02/13/2019 COVID-19 Vaccine (2024- season) 2024 07/12/2022, 12/11/2021, 04/02/2021, Additional history exists Influenza [...] patient's age to complete this topic Insurance [id number] < 63 [place] [id number]
--- OUTSIDE RECORDS SUMMARY | 2025-02-11 20:57 | XMS_ITS | Clinical Summary ---
Author Organization [facility] Address [address] [place] [address] Phone Care Team Providers Care Gas Well Drilling Manager Name Role Phone Fang Salas MD [...] 2018 ZOSTER VACCINES (1 of 2) 2018 INFLUENZA VACCINE (#1) 2024 COVID-19 VACCINE (1 - 2024-2 6 season) 2024 RSV VACCINE (1 - 1-dose 75+ series) 12/19/2043 HEPATITIS A VACCINES Aged Out No long [...] B ONE CARE MEDICARE REPLACEMENT [place] [id number] MEDICARE PART A & B MEDICARE PART A & B MEDICARE PART A & B MEDICARE PART A & B MEDICARE PART A & B MEDICARE PART A & B MEDICARE PART A & B MEDICARE PART A & B Care Teams Gas Well Drilling Manager Relationship Specialty Start Date End Date Fang Salas MD [address] [place] [address] PCP - General Internal Medicine 12/03/21 Additional Source Comments The information contained in this document represents components of the legal health record. It is not the complete legal health record.[facility]
== END 2025-02-11 16:51 | disposition home or self-care (01) ==
PROVIDERS: PCP Internal Medicine; Visit Provider Physician Assistant Medical
DX: L03.032 Cellulitis of left toe (principal)

== ENCOUNTER → 2025-02-11 16:02 | Outpatient (BNVA) | payer OTHER, SELFPAY | PROVIDERS: PCP Internal Medicine; Visit Provider Physician Assistant Medical | DX: S90.822A Blister (nonthermal), left foot, initial encounter (principal); L03.032 Cellulitis of left toe; E11.9 Type 2 diabetes mellitus without complications; X58.XXXA Exposure to other specified factors, initial encounter; Y93.9 Activity, unspecified; Y92.9 Unspecified place or not applicable; Y99.9 Unspecified external cause status | CPT/HCPCS: 10060; 99212 ==

== ENCOUNTER 2025-04-23 13:54 | Outpatient (AMB) | payer OTHER, SELFPAY ==
--- NOTE | 2025-04-23 13:56 | A.OFFPC_ITS ---
Vital Signs 04/23/25 14:02 Height 5 ft 6 in Weight 164 lb BMI 26.5 BP 128/86 Blood Pressure Location Lt brachial Position Sitting Intake Visit Reasons: 4m f/u reschedule from 04/02 Guzzler Builder Required: No Accompanied by: Self / Same As Patient Allergies dicyclomine (Bentyl) Allergy (Intermediate, Verified 04/23/25 14:24) pruritus finasteride Allergy (Intermediate, Verified 04/23/25 14:24) rash hydrocodone (Vicodin) Allergy (Intermediate, Verified 04/23/25 14:24) rash lisinopril Allergy (Intermediate, Verified 04/23/25 14:24) myalgias morphine Allergy (Intermediate, Verified 04/23/25 14:24) unconscious Medication List - Last Reconciled 04/23/25 by Fang Seals MD acetaminophen 1,000 mg (2 x 500 mg) PO Q8H PRN albuterol sulfate 2.5 mg (3 mL) inhalation QID PRN ascorbate calcium (vitamin C) 500 mg PO BID atorvastatin 40 mg PO BEDTIME 90 days azelastine 1 spray intranasal BID betamethasone dipropionate 0.05% 1 appl topical DAILY PRN 2 weeks blood sugar diagnostic As directed blood-glucose meter As directed blood-glucose sensor (FreeStyle Eduardo 3 Plus Sensor device) As directed bupropion HCl XL 300 mg PO DAILY cetirizine 10 mg PO QAM [chair lift As directed] cholecalciferol (vitamin D3) 25 mcg PO DAILY 90 days clonazepam mg PO clotrimazole-betamethasone 1-0.05 % 1 appl topical BID 14 days docusate sodium 200 mg (2 x 100 mg) PO .qhs doxycycline hyclate 100 mg PO BID empagliflozin (Jardiance) 10 mg PO DAILY 90 days escitalopram oxalate 5 mg PO DAILY flash glucose scanning reader (FreeStyle Eduardo 14 Day Herminie) As directed fluticasone propionate 50 mcg/actuation 1 spray intranasal Q12H [Freestyle Eduardo 3 glucometer As directed] [FreeStyle Eduardo 3 plus reader As directed] hydrochlorothiazide 25 mg PO DAILY 90 days hydroxyzine HCl 25 mg PO TID PRN 30 days ibuprofen 600 mg PO Q6H PRN lancets (OneTouch Delica Lancets) As directed linaclotide (Linzess) 145 mcg PO DAILY linagliptin (Tradjenta) 5 mg PO DAILY loperamide (Imodium A-D) 2 mg PO Q6H PRN 2 days melatonin 5 - 10 mg PO BEDTIME metformin 1,000 mg PO BID multivitamin 1 tab PO DAILY mupirocin 2% 1 appl topical TID nebulizers (AeroEclipse II Nebulizer) As directed nystatin 1 appl topical QID polymyxin B sulf-trimethoprim 10,000 unit- 1 mg/mL 1 drp ophthalmic (eye) QID 7 days terazosin 10 mg PO DAILY 90 days Tobacco use date assessed: 05/16/24 Dental Screening Dental Screen Date: 05/16/24 HPI HPI Comments History of Present Illness Details The patient is a 54 year old male presenting for a follow-up visit and evaluation of a toenail problem. He reports having an issue with his left 2nd toenail, for which he was seen at a walk-in clinic and received antibiotics. He states the toenail was healing, but the nail began to come off, and he pulled it off himself. The procedure was drained at that time. The affected area is now dark, and the nail is reportedly growing back. Looks like cellulitis I will start him on doxycycline. The patient has a history of type 2 diabetes, which is well-managed on Jardiance 10 mg and Tradjenta, with a recent A1c of 6.4. He reports chronic, daily constipation and denies any diarrhea, though he has a prescription for Imodium. His other medical history includes asthma, for which he has an inhaler, and hyperlipidemia, treated with atorvastatin 40 mg. He has benign prostatic hyperplasia and a chronic cough, with referrals to urology and pulmonology, respectively. For depression with anxiety, he takes bupropion, citalopram, and clonazepam, and is followed by a psychiatrist. His known allergies include Ventolin, finasteride, Vicodin, lisinopril, and morphine. His last laboratory tests were performed in October. He has upcoming appointments with endocrinology on May 01, pulmonology on May 08, urology on May 16, and a physical exam on May 21. 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 Allergic rhinitis Chest pain Umbilical hernia Candidal intertrigo Transaminitis Lumbar degenerative disc disease PALOMA (generalized anxiety disorder) Mild recurrent major depression Oral lesion Cough Hiatal hernia Hemorrhoids BPH (benign prostatic hyperplasia) Depression with anxiety Chronic leg pain GERD (gastroesophageal reflux disease) Dyslipidemia Essential hypertension Diabetes mellitus Surgical History History of colonoscopy History of removal of cyst History of inguinal hernia repair History of lumbar fusion Family History Father CVD (cardiovascular disease) Hypertension Mother CVD (cardiovascular disease) Hypertension Diabetes Sister Breast cancer Brother Acute appendicitis Diabetes Hypertension Social History Household Members: Friend(s) Housing: Apartment Alcohol intake: never Patient Tobacco Use Status: Never used Tobacco e-Cigarette/Vaping Use: Never Used Second Hand Smoke Exposure: No service: No Current occupational status: disabled Cognitive needs: Yes Hearing needs: No Vision needs: No Questionnaire Thrive Questionnaire Date Thrive assessed: 05/16/24 I am a: Patient What is your living situation today?: I choose not to answer this question Within the past 12 months, did the food you bought not last and you didn't have the money to get more?: Sometimes True Within the past 12 months, did you worry whether your food would run out before you got money to buy more?: Sometimes True Do you have trouble paying for medicines?: No Do you have trouble getting transportation to medical appointments?: No Do you have trouble paying your heating and electricity bill?: I choose not to answer this question Do you have trouble taking care of your child, family member or friend?: I choose not to answer this question Do you have trouble with day-to-day activities such as bathing, preparing meals, shopping, managing finances, etc.?: Yes Are you currently unemployed and looking for a job?: Yes Are you interested in more education?: No Currently or been in a relationship where the following occur: I choose not to answer THRIVE Score: 2 PALOMA-7 AMB Questionnaire PALOMA-7 Date PALOMA - 7 assessed: 05/16/24 Source: Developed by Drs. Chirag Bass, Cat Wong, Sivakumar Melvin and colleagues, with an educational elidia from [employer]. Review of Systems Const All systems reviewed & are unremarkable except as noted in HPI and below Card Denies chest pain at rest, Denies chest pain with activity, Denies edema, Denies irregular heart rhythm, Denies claudication, Denies dyspnea, Denies dyspnea on exertion, Denies orthopnea, Denies paroxysmal nocturnal dyspnea and Denies slow heart rate Resp Denies cough, Denies dyspnea and Denies dyspnea on exertion GI Denies abdominal pain, Denies change in bowel habits, Denies excessive flatus, Denies nausea and Denies vomiting Denies urinary hesitancy, Denies urinary incontinence and Denies urinary urgency Physical exam (Primary Care) Vital Signs: Last Vital Signs BP 128/86 04/23/25 14:02 BMI result Body Mass Index 26.5 Tobacco/Smoking Status: Tobacco use Status Tobacco use date assessed 05/16/24 04/23/25 13:56 Patient Tobacco Use Status Never used Tobacco 04/23/25 13:56 e-Cigarette/Vaping Use Never Used 04/23/25 13:56 Thrive Assessment: Date of Thrive Assessment Date Thrive assessed 05/16/24 04/23/25 13:56 Currently or been in a relationship where the following occur: I choose not to answer Resp Effort & Inspection: normal respiratory effort Auscultation: clear to auscultation bilaterally Cardio Jugular venous distension: no JVD Rate: regular rate Rhythm: regular rhythm Heart sounds: S1 normal heart sound present and S2 normal heart sound present Office Procedures Flu Questionnaire Does the patient have a severe egg allergy?: No Does the patient have severe life threatening allergies?: No Does the patient have a fever or illness today?: No Has the patient ever had Guillain-Argyle Syndrome?: No Has the patient ever had any past reaction to a flu shot?: No Results AMB Hemoglobin A1c AMB Hemoglobin A1c 6.4 % Last Edit by LESVIA Craig on 04/23/25 14:2 6 Immunizations Fluarix [id number] (PF) 45 mcg (15 mcg x 3)/0.5 mL IM syringe Performing Provider: Fang Seals MD [facility] Administered by: LESVIA Craig on 04/23/25 14:50 Dose Route Admin Location Dispensed Lot Number Expiration Date NDC Hiv Nurse 0.5 mL IM Left Deltoid 0.5 mL [id number] 10/21/25 58018-611-74 [employer]km[employer] VIS Given Date VIS Provided VIS Publication Date 04/23/25 Single Vaccine 24 Eligibility Eligibility Date Funding Source Not [facility] Eligible 04/23/25 Private Results Reviewed Results Reviewed: Laboratory Last Values Hgb A1c (Clinic) 6.4 % (4.0-6.0) H 04/23/25 14:20 Coding Level of Care Code Add On Preventative Visit Only Diagnoses Essential hypertension I10 Mild recurrent major depression F33.0 PALOMA (generalized anxiety disorder) F41.1 Type 2 diabetes mellitus without complication, without long-term current use of insulin E11.9 Diabetes mellitus type: type 2 Diabetes mellitus senior living insulin use: without long term acute care registered nurse use Diabetes mellitus complication status: without complication Dyslipidemia E78.5 Cellulitis L03.90 Assessment & Plan Assessment & Plan (1) Essential hypertension: Code(s): I10 - Essential (primary) hypertension Category: Medical (2) Mild recurrent major depression: Code(s): F33.0 - Major depressive disorder, recurrent, mild Category: Medical (3) PALOMA (generalized anxiety disorder): Code(s): F41.1 - Generalized anxiety disorder Category: Medical (4) Diabetes mellitus: Comment: NIDDM Code(s): E11.9 - Type 2 diabetes mellitus without complications Category: Medical Qualifiers: Diabetes mellitus type: type 2 Diabetes mellitus senior living insulin use: without long term acute care registered nurse use Diabetes mellitus complication status: without complication Qualified Code(s): E11.9 - Type 2 diabetes mellitus without complications (5) Dyslipidemia: Code(s): E78.5 - Hyperlipidemia, unspecified Category: Medical (6) Cellulitis: Code(s): L03.90 - Cellulitis, unspecified Category: Medical Plan Plan 1. Toe Injury/cellulitis The patient presents with an evolving toenail injury, status post-treatment at a walk-in clinic and self-avulsion of the nail. Examination reveals a reddish nail bed with some dark discoloration, consistent with a subungual hematoma, but no signs of necrosis. An oral antibiotic will be prescribed to prevent or treat infection. The patient has been instructed to monitor for any worsening signs, specifically if the area turns joselo. 2. Type 2 Diabetes Mellitus The patient's diabetes is stable, with a recent A1c of 6.4, and he reports his current medication, Jardiance, is working well. He will continue his current regimen, which also includes Tradjenta. An order for lab work will be placed, as his last tests were in October. He has a scheduled follow-up with endocrinology on May 01. 3. Chronic Constipation The patient reports chronic, daily constipation and denies having diarrhea. The prescription for Imodium will be discontinued as it is contraindicated for his symptoms. 4. Health Maintenance The patient was reminded of his upcoming specialist appointments, including pulmonology on May 08 for a cough and urology on May 16 for an enlarged prostate. He is also scheduled for a physical exam on May 21. Orders will be placed for labs, including a cholesterol panel, to be completed before his follow-up. 5. Hyperlipidemia Continue statins. LDL goal is less than 70. Orders: Orders Complete Blood Count Auto Diff Today D64.9 - Anemia, unspecified Vitamin D 25-OH Total Today E55.9 - Vitamin D deficiency, unspecified Comprehensive [place]. Panel Fast Today I10 - Essential (primary) hypertension Lipid Panel Today E78.5 - Hyperlipidemia, unspecified Microalbumin, Random (w Creat) Today R80.9 - Proteinuria, unspecified Vitamin B12 and Folate Today E53.8 - Deficiency of other specified B group vitamins IRON PROFILE Today D64.9 - Anemia, unspecified Influenza [id number] Immunization Today Z23 - Encounter for immunization AMB Hemoglobin A1c Today E11.9 - Type 2 diabetes mellitus without complications Medications: Refilled linaclotide (Linzess) 145 mcg PO DAILY 90 caps 0RF doxycycline hyclate 100 mg PO BID 14 tabs 0RF Discontinued loperamide (Imodium A-D) Discontinued Reason: Patient Completed Course 2 mg PO Q6H 2 days PRN 8 caps 0RF loose stool
[2025-04-23 14:02] VITALS: BP 128/86; BMI 26.5
--- OUTSIDE RECORDS SUMMARY | 2025-04-23 15:13 | XMS_ITS | Clinical Summary ---
Author Organization [employer] Address [address] [facility] [address] [place] [address] Care Team Providers Care Manager Insurance Name Role Phone Unavailable Primary Care Provider [...] patient's age to complete this topic Insurance [id number] < 65 [place] [id number]
--- OUTSIDE RECORDS SUMMARY | 2025-04-23 15:13 | XMS_ITS | Clinical Summary ---
Author Organization [facility] Address [address] [place] [id number] Phone Care Team Providers Care Content Curator Name Role Phone Fang Salas MD Primary [...] B ONE CARE MEDICARE REPLACEMENT [place] CUE[place] [id number] MEDICARE PART A & B MEDICARE PART A & B MEDICARE PART A & B Member Subscriber Plan / Payer (Ef fective 2021-Present) Name:Reji Vela Member ID:[id number] Relation to Subscriber:Self Name:Reji Vela Subscriber ID:[id number] Payer ID:[id number] Group ID:Not on file Type:Medicare Address: [facility] [employer] [facility] [address] [place] [address] MEDICARE PART A & B MEDICARE PART A & B MEDICARE PART A & B MEDICARE PART A & B MEDICARE PART A & B Care Teams Content Curator Relationship Specialty Start Date End Date Fang Salas MD [address] [place] [address] PCP - General Internal Medicine 12/03/21 Additional Source Comments The information contained in this document represents components of the legal health record. It is not the complete legal health record.[facility]
--- OUTSIDE RECORDS SUMMARY | 2025-04-23 15:13 | XMS_ITS | Clinical Summary ---
Author Organization [facility] Address [address] [place] [phone] Phone Care Team Providers Care Quiller Tender Name Role Phone Fang Salas MD Primary Care Provider [phone] Allergies Active Allergy Reactions Criticality Noted Date [...] Visit [facility] [address] [address] Kitty Evangelista ARNP [address] [address] Health Maintenance Due Date Last Done Comments [...] Most Recently Relevant to Health Maintenance Insurance [facility] ([id number]) [facility] ([id number]) Care Teams Quiller Tender Relationship Specialty Start Date End Date Fang Salas MD [address] [place] [address] PCP - General 05/04/20
--- OUTSIDE RECORDS SUMMARY | 2025-04-23 15:13 | XMS_ITS | Encounter Summary ---
Author Organization [facility] Address [address] [place] [address] Phone Care Team Providers Care Bush And Vine Fruit Crop Farmer Name Role Phone Fang Salas MD Primary Care Provider [phone] Encounter Details Date Type Department Care Team (Late Contact Info) Description 07/22/2020 Orders Only [facility] [address] [place] [address] Provider, MD Will Social History [...] Department Care Team (Late Contact Info) Description 11/18/2025 4:30 PM EDT Office Visit [facility] [address] [facility] [address] [place] [address] Kitty Evangelista ARNP [address] [facility] [address] [place] [address] documented as of this encounter Procedures Procedure Name Priority Date/Time Associated Diagnosis Comments EXT RESULT ENTRY Routine 06/16/2020 documented in this encounter Results * EXT RESULT ENTRY (06/16/2020) us Historical Provider LAB BLOOD ORDERABLES Priscila l Result documented in this encounter Visit Diagnoses Not on filedocumented in this encounter Care Teams Bush And Vine Fruit Crop Farmer Relationship Specialty Start Date End Date Fang Salas MD [address] [place], [place] PCP - General 05/04/20 documented as of this encounter
== END 2025-04-23 14:52 | disposition home or self-care (01) ==
LOC: HO.HMCH 13:55
PROVIDERS: PCP Internal Medicine; Visit Provider Internal Medicine
DX: I10 Essential (primary) hypertension (principal); F33.0 Major depressive disorder, recurrent, mild; F41.1 Generalized anxiety disorder; E11.9 Type 2 diabetes mellitus without complications; E78.5 Hyperlipidemia, unspecified; L03.90 Cellulitis, unspecified; Z23 Encounter for immunization

== ENCOUNTER → 2025-04-23 13:54 | Outpatient (BNVA) | payer OTHER, SELFPAY | PROVIDERS: PCP Internal Medicine; Visit Provider Internal Medicine | DX: I10 Essential (primary) hypertension (principal); F33.0 Major depressive disorder, recurrent, mild; F41.1 Generalized anxiety disorder; E11.9 Type 2 diabetes mellitus without complications; E78.5 Hyperlipidemia, unspecified; L03.032 Cellulitis of left toe; Z23 Encounter for immunization | CPT/HCPCS: 83036; 90471; 90656; 99212 ==